=== PATIENT | male | born 1945 | race African-American/Black ===

== ENCOUNTER 2017-05-20 15:00 | Outpatient (RCR) | payer MEDICARE, BC | END 2017-06-04 | disposition home or self-care (01) | LOC: WCC 15:00 | DX: S31.829A Unspecified open wound of left buttock, initial encounter (principal); X58.XXXA Exposure to other specified factors, initial encounter; Y93.9 Activity, unspecified; Y92.9 Unspecified place or not applicable; E11.9 Type 2 diabetes mellitus without complications; I10 Essential (primary) hypertension; Z86.73 Personal history of transient ischemic attack (TIA), and cerebral infarction without residual deficits; R53.1 Weakness | CPT/HCPCS: G0463 ==

== ENCOUNTER 2018-01-14 12:26 | Inpatient (IN) | payer MEDICARE, BC ==
[~2018-01-14] VITALS: Ht 180.3 cm; Wt 75.9 kg
[2018-01-14] VITALS (13 sets, daily range): BP systolic 78–153; BP diastolic 34–59
[2018-01-14] MEDS ORDERED: Vancomycin 1 GM in NS 275 ML IV ONE (12:30)
[2018-01-14] MEDS ORDERED: Cefepime HCl 1 GM in NS 55 ML IV SCH (12:30)
[2018-01-14] MEDS ORDERED: ACETAMINOPHEN80 MG GT (12:35)
[2018-01-14] MEDS ORDERED: LEVEMIR FL100 UNIT/2 SQ (12:35)
[2018-01-14] MEDS ORDERED: ZINC SULFATE220 M1 GT (12:35)
[2018-01-14] MEDS ORDERED: WARFARIN SODIUM2 MG GT (12:35)
[2018-01-14] MEDS ORDERED: CARDIZEM30 M1 GT (12:35)
[2018-01-14] MEDS ORDERED: VITAMIN B COMP1 EAC2 GT (12:35)
[2018-01-14] MEDS ORDERED: DOCUSATE SODIU100 MG GT (12:35)
[2018-01-14] MEDS ORDERED: PROTONIX40 M2 GT (12:35)
[2018-01-14] MEDS ORDERED: LISINOPRIL10 MG GT (12:35)
[2018-01-14] MEDS ORDERED: ADMELOG SO100 UNIT/1 SQ (12:35)
[2018-01-14] MEDS ORDERED: IPRATROPIU0.2 MG/1 M HHN (12:35)
[2018-01-14] MEDS ORDERED: TAMSULOSIN HCL0.4 MG GT (12:35)
[2018-01-14] MEDS ORDERED: ARANESP IJ (12:35)
[2018-01-14] MEDS ORDERED: Acetaminophen 650 MG SUPP RECTAL ONE (12:45)
[2018-01-14 13:47] LABS: ANION GAP 14 mmol/L (5-15); BLOOD UREA NITROGEN 84 mg/dL (7-18); CALCIUM 8.9 MG/DL (8.5-10.1); CARBON DIOXIDE 19 MMOL/L (21-32); CHLORIDE 102 MMOL/L (98-107); CREATININE 3.2 MG/DL (0.55-1.30); POTASSIUM 5.5 MMOL/L (3.5-5.1); SODIUM 135 MMOL/L (136-145)
[2018-01-14 13:48] LABS: HEMATOCRIT 29.4 % (42.0-52.0); HEMOGLOBIN 9.6 G/DL (14.2-18.0); MEAN CORPUSCULAR VOLUME 94 FL (80-99); PLATELET COUNT 249 K/UL (150-450); RED BLOOD COUNT 3.11 M/UL (4.70-6.10); RED CELL DISTRIBUTION WIDTH 16.5 % (11.6-14.8); WHITE BLOOD COUNT 21.5 K/UL (4.8-10.8)
--- NOTE | 2018-01-14 13:54 | Diagnostic Imaging Report ---
Indication: Dyspnea. Fever Comparison: None A single view chest radiograph was obtained. Findings: Small left basal density probably atelectasis or scarring demonstrated. Pneumonia not entirely excludable. Correlate clinically. Follow-up suggested. There is a left jugular permacath in good position. Heart size is normal. No evidence of pulmonary edema. Bones are osteopenic. IMPRESSION: Questionable pneumonia left lung base. Atelectasis or scarring more likely.
[2018-01-14 14:02] LABS: ALANINE AMINOTRANSFERASE 28 U/L (12-78); ALBUMIN 1.4 G/DL (3.4-5.0); ALBUMIN/GLOBULIN RATIO 0.2 (1.0-2.7); ALKALINE PHOSPHATASE 424 U/L (46-116); ASPARTATE AMINO TRANSFERASE 96 U/L (15-37); CREATINE KINASE 209 U/L (26-308)
[2018-01-14 14:45] LABS: INR 1.3 (0.9-1.1)
--- NOTE | 2018-01-14 15:45 | Emergency Room Report ---
History of Present Illness General Chief Complaint: Fever Source: Patient, EMS Present Illness HPI Patient presents from a retirement facility. He has multiple medical problems to include renal failure on dialysis. He is status post CVA with contractures and hemiplegia. He is nonverbal at baseline. He has a PEG tube. He presents from a retirement facility for fever and low blood pressure. There is no other history available. Allergies: Coded Allergies: No Known Allergies (Unverified , 01/14/18) Patient History Past Medical History: see triage record, DM, HTN, [place], CAD, GERD, CVA/TIA, dementia, renal disease, dialysis Social History: Denies: smoking, alcohol use, drug use Reviewed Nursing Documentation: PMH: Agreed; PSxH: Agreed Nursing Documentation-PMH Past Medical History: No History, Except For Hx Hypertension: Yes Hx Dialysis: Yes - Tue, Thurs, and Sat Review of Systems All Other Systems: limited Physical Exam Vital Signs Date Time Temp Pulse Resp B/P (MAP) Pulse Ox O2 Delivery O2 Flow Rate FiO2 01/14/18 12:20 100.1 126 20 75/40 96 Nasal Cannula 2.0 100.0 Sp02 EP Interpretation: reviewed, normal General Appearance: no apparent distress, alert, GCS 15, non-toxic Head: normocephalic, atraumatic Eyes: bilateral eye normal inspection, bilateral eye PERRL ENT: hearing grossly normal, no angioedema Neck: normal inspection Respiratory: chest non-tender, lungs clear, normal breath sounds, no respiratory distress, no retraction, no accessory muscle use Cardiovascular #1: no edema, tachycardia, systolic murmur Gastrointestinal: normal bowel sounds, non tender, soft, non-distended, no guarding, no rebound Rectal: deferred Musculoskeletal: other - contracted. At baseline Neurologic: sensory intact, other - non-verbal. unable to fully assess. contracted. Non-focal. Psychiatric: judgement/insight normal, memory normal, mood/affect normal, no suicidal/homicidal ideation Reflexes: 3+ bicep (R), 3+ bicep (L), 3+ tricep (R), 3+ tricep (L), 3+ knee (R) , 3+ knee (L) Skin: other - dry Medical Decision Making Diagnostic Impression: Primary Impression: Fever Additional Impression: Sepsis ER Course This patient initially presented and septic shock. He was hypotensive, febrile and tachycardic. He did respond aggressive IV fluids. He was given broad- spectrum antibiotics here in the emergency department. I'm unsure of the patient's source. Possibly bacteremia. He does have an indwelling dialysis catheter. The patient's blood pressure did normalize. He was given Tylenol per rectal. He is admitted to the ICU for further evaluation and treatment. This patient is critically ill. This patient required complex medical decision- making, aggressive intervention, extensive laboratory workup and monitoring. Critical care time: 40 minutes. Laboratory Tests Test 01/14/18 12:50 01/14/18 14:00 White Blood Count 21.5 K/UL (4.8-10.8) H Red Blood Count 3.11 M/UL (4.70-6.10) L Hemoglobin 9.6 G/DL (14.2-18.0) L Hematocrit 29.4 % (42.0-52.0) L Mean Corpuscular Volume 94 FL (80-99) Mean Corpuscular Hemoglobin 31.0 PG (27.0-31.0) Mean Corpuscular Hemoglobin Concent 32.8 G/DL (32.0-36.0) Red Cell Distribution Width 16.5 % (11.6-14.8) H Platelet Count 249 K/UL (150-450) Mean Platelet Volume 8.3 FL (6.5-10.1) Neutrophils (%) (Auto) % (45.0-75.0) Lymphocytes (%) (Auto) % (20.0-45.0) Monocytes (%) (Auto) % (1.0-10.0) Eosinophils (%) (Auto) % (0.0-3.0) Basophils (%) (Auto) % (0.0-2.0) Differential Total Cells Counted 100 Neutrophils % (Manual) 87 % (45-75) H Lymphocytes % (Manual) 2 % (20-45) L Monocytes % (Manual) 2 % (1-10) Eosinophils % (Manual) 0 % (0-3) Basophils % (Manual) 1 % (0-2) Band Neutrophils 8 % (0-8) Platelet Estimate Adequate Platelet Morphology Normal Anisocytosis 1+ Sodium Level 135 MMOL/L (136-145) L Potassium Level 5.5 MMOL/L (3.5-5.1) H Chloride Level 102 MMOL/L (98-107) Carbon Dioxide Level 19 MMOL/L (21-32) L Anion Gap 14 mmol/L (5-15) Blood Urea Nitrogen 84 mg/dL (7-18) H Creatinine 3.2 MG/DL (0.55-1.30) H Estimate Glomerular Filtration Rate mL/min (>60) Glucose Level 168 MG/DL (74-106) H Lactic Acid Level 2.00 mmol/L (0.66-2.22) 1.70 mmol/L (0.66-2.22) Calcium Level 8.9 MG/DL (8.5-10.1) Total Bilirubin 1.0 MG/DL (0.2-1.0) Aspartate Amino Transferase (AST) 96 U/L (15-37) H Alanine Aminotransferase (ALT) 28 U/L (12-78) Alkaline Phosphatase 424 U/L (46-116) H Total Creatine Kinase 209 U/L (26-308) Creatine Kinase MB 1.0 NG/ML (0.0-3.6) Creatine Kinase MB Relative Index 0.4 Troponin I 0.036 ng/mL (0.000-0.056) Total Protein 7.7 G/DL (6.4-8.2) Albumin 1.4 G/DL (3.4-5.0) L Globulin 6.3 g/dL Albumin/Globulin Ratio 0.2 (1.0-2.7) L Prothrombin Time 13.5 SEC (9.30-11.50) H Prothrombin Time INR 1.3 (0.9-1.1) H PTT 31 SEC (23-33) EKG Diagnostic Results Rate: tachycardiac Rhythm: other - S.tachycardia ST Segments: no acute changes Rhythm Strip Diag. Results EP Interpretation: yes Rate: 110's Rhythm: no PVC's, no ectopy, other - S.tachycardia Chest X-Ray Diagnostic Results Chest X-Ray Diagnostic Results : Chest X-Ray Ordered: Yes # of Views/Limited/Complete: 1 View Indication: Other - sepsis Interpretation: no consolidation, no effusion, no pneumothorax, no acute cardiopulmonary disease Impression: No acute disease Electronically Signed by: Kamala Last Vital Signs Date Time Temp Pulse Resp B/P (MAP) Pulse Ox O2 Delivery O2 Flow Rate FiO2 4/12/18 14:20 98.6 107 22 108/42 95 Nasal Cannula 2.0 98.6 Disposition: ADMITTED INPATIENT Condition: Critical Referrals: GUSTAVO WING (PCP) SHAHRAM GEE D.O. Jan 14, 2018 15:45
[2018-01-14] MEDS ORDERED: Albuterol/Ipratropium 3ml neb HHN PRN (16:00)
[2018-01-14] MEDS ORDERED: Miralax 17gm pkt ORAL PRN (16:00)
[2018-01-14] MEDS ORDERED: Morphine Sulfate 4mg/ml Inj IVP PRN (16:00)
--- NOTE | 2018-01-14 16:26 | Consultation ---
Consult Note Consult Note asked to eval for dialysis management Patient presents from a senior living facility. He has multiple medical problems to include renal failure on dialysis. He is status post CVA with contractures and hemiplegia. He is nonverbal at baseline. He has a PEG tube. He presents from a senior living facility for fever and low blood pressure. There is no other history available. Past Medical History: see triage record, DM, HTN, [place], CAD, GERD, CVA/TIA, dementia, renal disease, dialysis Past Medical History: No History, Except For Hx Hypertension: Yes Hx Dialysis: Yes - Tue, Thurs, and Sat Assessment/Plan ESRD Septic Shock Left permacath PRG Dementia Anemia HTN Previous Stroke Hydrate- Antibiotics [place] HD as needed per orders GIOVANNI BROUSSARD Jan 14, 2018 16:26
[2018-01-14] MEDS ORDERED: Amikacin Rx to dose MISC PRN (18:15)
--- NOTE | 2018-01-14 18:52 | Pulmonolgy Critical Care Note ---
Critical Care - Asmt/Plan Problems: (1) Septic shock (2) ESRF (end stage renal failure) (3) History of CVA (cerebrovascular accident) (4) HTN (hypertension) (5) Feeding by G-tube (6) Hemiplegia Respiratory: monitor respiratory rate, adjust FIO2 Cardiac: continue pressors, continue to monitor HR/BP Renal: F/U I&O, keep IV fluid Infectious Disease: check cultures Gastrointestinal: hold feedings Endocrine: monitor blood sugar Hematologic: monitor H/H Neurologic: PRN Ativan, PRN Morphine Affect: PRN ativan Prophylaxis: Protonix Disposition: keep in ICU Notes Reviewed: cardio Discussed with: consultants Critical Care - Objective Last 24 Hour Vital Signs Date Time Temp Pulse Resp B/P (MAP) Pulse Ox O2 Delivery O2 Flow Rate FiO2 01/14/18 17:52 98.4 107 20 122/49 98 Nasal Cannula 2.0 01/14/18 17:51 98.6 104 14 122/46 98 Nasal Cannula 2.0 98.6 01/14/18 16:50 98.6 104 14 111/43 98 Nasal Cannula 2.0 98.6 01/14/18 16:00 98.6 104 14 111/59 98 Nasal Cannula 2.0 98.6 01/14/18 15:20 98.6 107 22 122/46 94 Nasal Cannula 2.0 98.6 01/14/18 14:20 98.6 107 22 108/42 95 Nasal Cannula 2.0 98.6 01/14/18 13:41 98.6 01/14/18 13:20 98.6 112 27 104/38 96 Nasal Cannula 2.0 98.6 01/14/18 13:11 100.1 01/14/18 12:30 100.1 120 27 78/34 96 Nasal Cannula 2.0 100.1 01/14/18 12:20 100.1 126 20 75/40 96 Nasal Cannula 2.0 100.0 Status: awake Condition: critical HEENT: atraumatic Lungs: clear Heart: HR/BP stable Abdomen: soft Extremities: no C/C/E Decubiti: location Critical Care - Subjective ROS Limited/Unobtainable: Yes ICU Day: 1 Interval Events: 72 year old male with hx of ESRF, Dementia, on HD, status post CVA with contractures and hemiplegia, nonverbal at baseline with PEG tube, [facility] resident [facility] for fever and low blood pressure. There is no other history available. Pt was diagnosed to have septic shock and admitted to ICU for further work up. Fluids: levophed CXR: clear Labs: Laboratory Tests Test 01/14/18 12:50 01/14/18 14:00 White Blood Count 21.5 K/UL (4.8-10.8) H Red Blood Count 3.11 M/UL (4.70-6.10) L Hemoglobin 9.6 G/DL (14.2-18.0) L Hematocrit 29.4 % (42.0-52.0) L Mean Corpuscular Volume 94 FL (80-99) Mean Corpuscular Hemoglobin 31.0 PG (27.0-31.0) Mean Corpuscular Hemoglobin Concent 32.8 G/DL (32.0-36.0) Red Cell Distribution Width 16.5 % (11.6-14.8) H Platelet Count 249 K/UL (150-450) Mean Platelet Volume 8.3 FL (6.5-10.1) Neutrophils (%) (Auto) % (45.0-75.0) Lymphocytes (%) (Auto) % (20.0-45.0) Monocytes (%) (Auto) % (1.0-10.0) Eosinophils (%) (Auto) % (0.0-3.0) Basophils (%) (Auto) % (0.0-2.0) Differential Total Cells Counted 100 Neutrophils % (Manual) 87 % (45-75) H Lymphocytes % (Manual) 2 % (20-45) L Monocytes % (Manual) 2 % (1-10) Eosinophils % (Manual) 0 % (0-3) Basophils % (Manual) 1 % (0-2) Band Neutrophils 8 % (0-8) Platelet Estimate Adequate Platelet Morphology Normal Anisocytosis 1+ Sodium Level 135 MMOL/L (136-145) L Potassium Level 5.5 MMOL/L (3.5-5.1) H Chloride Level 102 MMOL/L (98-107) Carbon Dioxide Level 19 MMOL/L (21-32) L Anion Gap 14 mmol/L (5-15) Blood Urea Nitrogen 84 mg/dL (7-18) H Creatinine 3.2 MG/DL (0.55-1.30) H Estimat Glomerular Filtration Rate mL/min (>60) Glucose Level 168 MG/DL (74-106) H Lactic Acid Level 2.00 mmol/L (0.66-2.22) 1.70 mmol/L (0.66-2.22) Calcium Level 8.9 MG/DL (8.5-10.1) Total Bilirubin 1.0 MG/DL (0.2-1.0) Aspartate Amino Transf (AST/SGOT) 96 U/L (15-37) H Alanine Aminotransferase (ALT/SGPT) 28 U/L (12-78) Alkaline Phosphatase 424 U/L (46-116) H Total Creatine Kinase 209 U/L (26-308) Creatine Kinase MB 1.0 NG/ML (0.0-3.6) Creatine Kinase MB Relative Index 0.4 Troponin I 0.036 ng/mL (0.000-0.056) Total Protein 7.7 G/DL (6.4-8.2) Albumin 1.4 G/DL (3.4-5.0) L Globulin 6.3 g/dL Albumin/Globulin Ratio 0.2 (1.0-2.7) L Prothrombin Time 13.5 SEC (9.30-11.50) H Prothromb Time International Ratio 1.3 (0.9-1.1) H Activated Partial Thromboplast Time 31 SEC (23-33) Bryson Reilly MD Jan 14, 2018 18:52
[2018-01-14] MEDS ORDERED: Amikacin 600 MG in NS 110 ML IV SCH (21:00)
[2018-01-14] MEDS ORDERED: Tamsulosin 0.4mg cap ORAL SCH (21:00)
[2018-01-14] MEDS: ERTAPENEM IV SCH (21:45)
[2018-01-14] MEDS: NS IV SCH (21:45)
[2018-01-14] MEDS: Heparin 5000 units/ml inj SUBQ SCH (21:49)
[2018-01-14] MEDS ORDERED: Vancomycin 1 GM in D5W 275 ML IV SCH (23:45)
[2018-01-15] VITALS (24 sets, daily range): BP systolic 92–147; BP diastolic 34–52
[2018-01-15 04:25] LABS: HEMATOCRIT 23.6 % (42.0-52.0); HEMOGLOBIN 7.8 G/DL (14.2-18.0); MEAN CORPUSCULAR VOLUME 94 FL (80-99); PLATELET COUNT 243 K/UL (150-450); RED BLOOD COUNT 2.51 M/UL (4.70-6.10); RED CELL DISTRIBUTION WIDTH 16.4 % (11.6-14.8)
[2018-01-15 04:43] LABS: WHITE BLOOD COUNT 25.3 K/UL (4.8-10.8)
[2018-01-15 05:03] LABS: % IRON SATURATION 16 % (15-50); IRON 12 ug/dL (50-175); TOTAL IRON BINDING CAPACITY 74 ug/dL (250-450)
[2018-01-15 05:15] LABS: ALANINE AMINOTRANSFERASE 44 U/L (12-78); ALBUMIN 1.2 G/DL (3.4-5.0); ALBUMIN/GLOBULIN RATIO 0.2 (1.0-2.7); ALKALINE PHOSPHATASE 320 U/L (46-116); ANION GAP 12 mmol/L (5-15); ASPARTATE AMINO TRANSFERASE 51 U/L (15-37); BILIRUBIN,TOTAL 0.6 MG/DL (0.2-1.0); CALCIUM 7.9 MG/DL (8.5-10.1); CARBON DIOXIDE 19 MMOL/L (21-32); CHLORIDE 110 MMOL/L (98-107); CHOLESTEROL 54 MG/DL (< 200); CREATININE 3.4 MG/DL (0.55-1.30); HDL CHOLESTEROL 12 MG/DL (40-60); POTASSIUM 4.1 MMOL/L (3.5-5.1); SODIUM 141 MMOL/L (136-145); TRIGLYCERIDES 79 MG/DL (30-150)
[2018-01-15 05:43] LABS: BLOOD UREA NITROGEN 88 mg/dL (7-18)
[2018-01-15 06:13] LABS: GAMMA GLUTAMYL TRANSPEPTIDASE 233 U/L (5-85)
[2018-01-15 07:32] LABS: FERRITIN > 2000 NG/ML (8-388)
[2018-01-15] MEDS: Heparin 5000 units/ml inj SUBQ SCH ×2 (09:00→21:00)
[2018-01-15] MEDS ORDERED: Pantoprazole Inj IVP SCH (09:00)
--- NOTE | 2018-01-15 09:35 | Diagnostic Imaging Report ---
Indication: Acute renal failure Technique: Grayscale and duplex images of the kidneys, retroperitoneum, and bladder were obtained. Comparison: none Findings:. Per technologist, exam was technically difficult as patient was contracted Right kidney measures 10.1 cm in length. Left kidney measures 9.3 cm in length. Both kidneys demonstrates slightly increased echogenicity. No hydronephrosis. Right kidney demonstrates a 2.6 cm cyst. Normal inferior vena cava. Bladder contains considerable debris layering dependently. Bladder volume 242 mL. Patient unable to void Impression: Mildly increased renal echogenicity bilaterally, suspect on the basis of medical renal disease Negative for hydronephrosis Distended bladder containing debris Right renal cyst incidentally noted .
[2018-01-15] MEDS ORDERED: Vancomycin 1gm/D5W 275ml IVPB ONE ×2 (10:00)
--- NOTE | 2018-01-15 10:33 | Nephrology Progress Note ---
Assessment/Plan Problem List: (1) ESRF (end stage renal failure) (2) Septic shock (3) Anemia in chronic kidney disease, on chronic dialysis Assessment ESRD Septic Shock Left permacath PRG Dementia Anemia HTN Previous Stroke Plan Hydrate- transfuse 2 units Antibiotics [place] if residual HD as needed per orders Subjective ROS Limited/Unobtainable: No Constitutional: Reports: malaise, weakness Objective Objective Last 24 Hour Vital Signs Date Time Temp Pulse Resp B/P (MAP) Pulse Ox O2 Delivery O2 Flow Rate FiO2 01/15/18 10:29 Nasal Cannula 1.0 01/15/18 10:29 100 Nasal Cannula 1.0 01/15/18 09:42 94 18 Nasal Cannula 2.0 01/15/18 08:00 97 01/15/18 08:00 98.2 92 17 110/46 100 Nasal Cannula 2.0 98.2 01/15/18 07:00 90 20 147/46 100 Nasal Cannula 2.0 01/15/18 06:00 104 20 109/49 100 Nasal Cannula 2.0 01/15/18 05:00 96 18 100/35 93 Nasal Cannula 2.0 01/15/18 04:00 98.5 96 20 93/36 94 Nasal Cannula 2.0 98.5 01/15/18 04:00 95 01/15/18 03:00 96 20 98/35 93 Nasal Cannula 2.0 01/15/18 02:00 101 20 111/42 93 Nasal Cannula 2.0 01/15/18 01:00 104 17 92/34 93 Nasal Cannula 2.0 01/15/18 00:00 109 01/15/18 00:00 98.5 117 20 93/35 93 Nasal Cannula 2.0 98.5 01/15/18 00:00 109 01/14/18 23:00 117 20 99/34 93 Nasal Cannula 2.0 01/14/18 22:09 120 20 98/53 93 Nasal Cannula 2.0 01/14/18 21:00 125 20 100/54 93 Nasal Cannula 2.0 01/14/18 20:00 139 20 125/59 94 Nasal Cannula 2.0 01/14/18 20:00 127 01/14/18 19:25 137 01/14/18 19:00 137 20 144/53 93 Nasal Cannula 2.0 01/14/18 18:40 98.6 104 22 153/59 93 Nasal Cannula 2.0 98.6 01/14/18 17:52 98.4 107 20 122/49 98 Nasal Cannula 2.0 01/14/18 17:51 98.6 104 14 122/46 98 Nasal Cannula 2.0 98.6 01/14/18 16:50 98.6 104 14 111/43 98 Nasal Cannula 2.0 98.6 01/14/18 16:00 100/50 01/14/18 16:00 98.6 104 14 111/59 98 Nasal Cannula 2.0 98.6 01/14/18 15:20 98.6 107 22 122/46 94 Nasal Cannula 2.0 98.6 01/14/18 14:20 98.6 107 22 108/42 95 Nasal Cannula 2.0 98.6 01/14/18 13:41 98.6 01/14/18 13:20 98.6 112 27 104/38 96 Nasal Cannula 2.0 98.6 01/14/18 13:11 100.1 01/14/18 12:30 100.1 120 27 78/34 96 Nasal Cannula 2.0 100.1 01/14/18 12:20 100.1 126 20 75/40 96 Nasal Cannula 2.0 100.0 Intake and Output 01/14/18 01/15/18 19:00 07:00 Intake Total 2675 ml 1022.4 ml Output Total 60 ml Balance 2675 ml 962.4 ml Intake Oral 0 ml Free Water 0 ml IV Total 2675 ml 1022.4 ml Output Urine Total 60 ml # Bowel Movements 7 Laboratory Tests 01/14/18 12:50: White Blood Count 21.5H, Red Blood Count 3.11L, Hemoglobin 9.6L, Hematocrit 29.4L, Mean Corpuscular Volume 94, Mean Corpuscular Hemoglobin 31.0, Mean Corpuscular Hemoglobin Concent 32.8, Red Cell Distribution Width 16.5H, Platelet Count 249, Mean Platelet Volume 8.3, Neutrophils (%) (Auto) , Lymphocytes (%) (Auto) , Monocytes (%) (Auto) , Eosinophils (%) (Auto) , Basophils (%) (Auto) , Differential Total Cells Counted 100, Neutrophils % ( Manual) 87H, Lymphocytes % (Manual) 2L, Monocytes % (Manual) 2, Eosinophils % ( Manual) 0, Basophils % (Manual) 1, Band Neutrophils 8, Platelet Estimate Adequate, Platelet Morphology Normal, Anisocytosis 1+, Sodium Level 135L, Potassium Level 5.5H, Chloride Level 102, Carbon Dioxide Level 19L, Anion Gap 14 , Blood Urea Nitrogen 84H, Creatinine 3.2H, Estimat Glomerular Filtration Rate , Glucose Level 168H, Lactic Acid Level 2.00, Calcium Level 8.9, Total Bilirubin 1.0, Aspartate Amino Transf (AST/SGOT) 96H, Alanine Aminotransferase ( ALT/SGPT) 28, Alkaline Phosphatase 424H, Total Creatine Kinase 209, Creatine Kinase MB 1.0, Creatine Kinase MB Relative Index 0.4, Troponin I 0.036, C- Reactive Protein, Quantitative 26.0H, Total Protein 7.7, Albumin 1.4L, Globulin 6.3, Albumin/Globulin Ratio 0.2L 01/14/18 14:00: Lactic Acid Level 1.70, Prothrombin Time 13.5H, Prothromb Time International Ratio 1.3H, Activated Partial Thromboplast Time 31 01/15/18 04:00: White Blood Count 25.3*H, Red Blood Count 2.51L, Hemoglobin 7.8L, Hematocrit 23.6L, Mean Corpuscular Volume 94, Mean Corpuscular Hemoglobin 30.9, Mean Corpuscular Hemoglobin Concent 32.8, Red Cell Distribution Width 16.4H, Platelet Count 243, Mean Platelet Volume 6.9, Neutrophils (%) (Auto) , Lymphocytes (%) (Auto) , Monocytes (%) (Auto) , Eosinophils (%) (Auto) , Basophils (%) (Auto) , Differential Total Cells Counted 100, Neutrophils % ( Manual) 84H, Lymphocytes % (Manual) 2L, Monocytes % (Manual) 5, Eosinophils % ( Manual) 0, Basophils % (Manual) 0, Band Neutrophils 9H, Platelet Estimate Adequate, Platelet Morphology Normal, Anisocytosis 1+, Sodium Level 141, Potassium Level 4.1, Chloride Level 110H, Carbon Dioxide Level 19L, Anion Gap 12 , Blood Urea Nitrogen 88H, Creatinine 3.4H, Estimat Glomerular Filtration Rate , Glucose Level 129H, Lactic Acid Level 0.80, Calcium Level 7.9L, Total Bilirubin 0.6, Aspartate Amino Transf (AST/SGOT) 51H, Alanine Aminotransferase ( ALT/SGPT) 44, Alkaline Phosphatase 320H, Troponin I 0.099H, Total Protein 6.5, Albumin 1.2L, Globulin 5.3, Albumin/Globulin Ratio 0.2L, Hypochromasia 1+, Hemoglobin A1c 7.2H, Uric Acid 4.4, Phosphorus Level 3.0, Magnesium Level 1.5L, Iron Level 12L, Total Iron Binding Capacity 74L, Percent Iron Saturation 16, Unsaturated Iron Binding 62L, Ferritin > 2000H, Gamma Glutamyl Transpeptidase 233H, Pro-B-Type Natriuretic Peptide 4385H, Triglycerides Level 79, Cholesterol Level 54, LDL Cholesterol 23, HDL Cholesterol 12L, Cholesterol/HDL Ratio 4.5H, Vitamin B12 Level 1425H, Folate 66.5H, Thyroid Stimulating Hormone (TSH) 1.997, Random Amikacin Level 22.4, Random Vancomycin Level 10.8 01/15/18 08:35: Arterial Blood pH 7.400, Arterial Blood Partial Pressure CO2 31.0L, Arterial Blood Partial Pressure O2 121.4H, Arterial Blood HCO3 18.9L, Arterial Blood Oxygen Saturation 98.1H, Arterial Blood Base Excess -5.1, Robb Test Positive Height (Feet): 5 Height (Inches): 11.00 Weight (Pounds): 136 General Appearance: no apparent distress, lethargic Cardiovascular: tachycardia Respiratory/Chest: decreased breath sounds Abdomen: soft, other - PEG GIOVANNI BROUSSARD Jan 15, 2018 10:33
--- NOTE | 2018-01-15 10:43 | Diagnostic Imaging Report ---
Indication: Dyspnea Technique: One view of the chest Comparison: 01/14/2018 Findings: There is minimal retrocardiac consolidation again demonstrated. There is slight blunting of both costophrenic sulci. Left jugular tunneled dialysis catheter remains. Heart size is normal. Impression: Stable retrocardiac consolidation Possible small bilateral pleural effusions Other findings as noted
--- NOTE | 2018-01-15 15:03 | Cardiology Report ---
APPROVED REPORT EKG Measurement Heart [id number] Sinus tachycardia Otherwise normal ECG
--- NOTE | 2018-01-15 15:40 | Consultation ---
Consult Note Consult Note [id number] Dario Rubi MD Jan 15, 2018 15:39
--- NOTE | 2018-01-15 16:24 | Cardiac Electrophysiology PN ---
Subjective Subjective Cardiology consult dictated [id number] Objective Last 24 Hour Vital Signs Date Time Temp Pulse Resp B/P (MAP) Pulse Ox O2 Delivery O2 Flow Rate FiO2 01/15/18 15:00 97 19 129/44 98 Nasal Cannula 1.0 01/15/18 14:00 100 20 124/52 99 Nasal Cannula 1.0 01/15/18 13:00 95 18 112/48 97 Nasal Cannula 1.0 01/15/18 12:00 98.6 92 17 120/49 97 Nasal Cannula 1.0 98.6 01/15/18 12:00 93 01/15/18 11:00 94 20 115/46 100 Nasal Cannula 1.0 01/15/18 10:29 Nasal Cannula 1.0 01/15/18 10:29 100 Nasal Cannula 1.0 01/15/18 10:00 95 19 115/52 99 Nasal Cannula 1.0 01/15/18 09:42 94 18 Nasal Cannula 2.0 01/15/18 09:00 92 18 105/48 98 Nasal Cannula 1.0 01/15/18 08:00 97 01/15/18 08:00 98.2 92 17 110/46 100 Nasal Cannula 2.0 98.2 01/15/18 07:00 90 20 147/46 100 Nasal Cannula 2.0 01/15/18 06:00 104 20 109/49 100 Nasal Cannula 2.0 01/15/18 05:00 96 18 100/35 93 Nasal Cannula 2.0 01/15/18 04:00 98.5 96 20 93/36 94 Nasal Cannula 2.0 98.5 01/15/18 04:00 95 01/15/18 03:00 96 20 98/35 93 Nasal Cannula 2.0 01/15/18 02:00 101 20 111/42 93 Nasal Cannula 2.0 01/15/18 01:00 104 17 92/34 93 Nasal Cannula 2.0 01/15/18 00:00 109 01/15/18 00:00 98.5 117 20 93/35 93 Nasal Cannula 2.0 98.5 01/15/18 00:00 109 01/14/18 23:00 117 20 99/34 93 Nasal Cannula 2.0 01/14/18 22:09 120 20 98/53 93 Nasal Cannula 2.0 01/14/18 21:00 125 20 100/54 93 Nasal Cannula 2.0 01/14/18 20:00 139 20 125/59 94 Nasal Cannula 2.0 01/14/18 20:00 127 01/14/18 19:25 137 01/14/18 19:00 137 20 144/53 93 Nasal Cannula 2.0 01/14/18 18:40 98.6 104 22 153/59 93 Nasal Cannula 2.0 98.6 01/14/18 17:52 98.4 107 20 122/49 98 Nasal Cannula 2.0 01/14/18 17:51 98.6 104 14 122/46 98 Nasal Cannula 2.0 98.6 01/14/18 16:50 98.6 104 14 111/43 98 Nasal Cannula 2.0 98.6 Intake and Output 01/14/18 01/15/18 19:00 07:00 Intake Total 2675 ml 1122.4 ml Output Total 60 ml Balance 2675 ml 1062.4 ml Intake Oral 0 ml Free Water 0 ml IV Total 2675 ml 1122.4 ml Output Urine Total 60 ml # Bowel Movements 7 Laboratory Tests Test 01/15/18 04:00 01/15/18 08:35 01/15/18 13:00 White Blood Count 25.3 K/UL (4.8-10.8) *H Red Blood Count 2.51 M/UL (4.70-6.10) L Hemoglobin 7.8 G/DL (14.2-18.0) L Hematocrit 23.6 % (42.0-52.0) L Mean Corpuscular Volume 94 FL (80-99) Mean Corpuscular Hemoglobin 30.9 PG (27.0-31.0) Mean Corpuscular Hemoglobin Concent 32.8 G/DL (32.0-36.0) Red Cell Distribution Width 16.4 % (11.6-14.8) H Platelet Count 243 K/UL (150-450) Mean Platelet Volume 6.9 FL (6.5-10.1) Neutrophils (%) (Auto) % (45.0-75.0) Lymphocytes (%) (Auto) % (20.0-45.0) Monocytes (%) (Auto) % (1.0-10.0) Eosinophils (%) (Auto) % (0.0-3.0) Basophils (%) (Auto) % (0.0-2.0) Differential Total Cells Counted 100 Neutrophils % (Manual) 84 % (45-75) H Lymphocytes % (Manual) 2 % (20-45) L Monocytes % (Manual) 5 % (1-10) Eosinophils % (Manual) 0 % (0-3) Basophils % (Manual) 0 % (0-2) Band Neutrophils 9 % (0-8) H Platelet Estimate Adequate Platelet Morphology Normal Hypochromasia 1+ Anisocytosis 1+ Sodium Level 141 MMOL/L (136-145) Potassium Level 4.1 MMOL/L (3.5-5.1) Chloride Level 110 MMOL/L (98-107) H Carbon Dioxide Level 19 MMOL/L (21-32) L Anion Gap 12 mmol/L (5-15) Blood Urea Nitrogen 88 mg/dL (7-18) H Creatinine 3.4 MG/DL (0.55-1.30) H Estimat Glomerular Filtration Rate mL/min (>60) Glucose Level 129 MG/DL (74-106) H Hemoglobin A1c 7.2 % (4.3-6.0) H Lactic Acid Level 0.80 mmol/L (0.66-2.22) Uric Acid 4.4 MG/DL (2.6-7.2) Calcium Level 7.9 MG/DL (8.5-10.1) L Phosphorus Level 3.0 MG/DL (2.5-4.9) Magnesium Level 1.5 MG/DL (1.8-2.4) L Iron Level 12 ug/dL (50-175) L Total Iron Binding Capacity 74 ug/dL (250-450) L Percent Iron Saturation 16 % (15-50) Unsaturated Iron Binding 62 ug/dL (112-346) L Ferritin > 2000 NG/ML (8-388) H Total Bilirubin 0.6 MG/DL (0.2-1.0) Gamma Glutamyl Transpeptidase 233 U/L (5-85) H Aspartate Amino Transf (AST/SGOT) 51 U/L (15-37) H Alanine Aminotransferase (ALT/SGPT) 44 U/L (12-78) Alkaline Phosphatase 320 U/L (46-116) H Troponin I 0.099 ng/mL (0.000-0.056) Pro-B-Type Natriuretic Peptide 4385 pg/mL (0-125) H Total Protein 6.5 G/DL (6.4-8.2) Albumin 1.2 G/DL (3.4-5.0) L Globulin 5.3 g/dL Albumin/Globulin Ratio 0.2 (1.0-2.7) L Triglycerides Level 79 MG/DL (30-150) Cholesterol Level 54 MG/DL (< 200) LDL Cholesterol 23 mg/dL (<100) HDL Cholesterol 12 MG/DL (40-60) L Cholesterol/HDL Ratio 4.5 (3.3-4.4) H Vitamin B12 Level 1425 PG/ML (193-986) H Folate 66.5 NG/ML (8.6-58.9) H Thyroid Stimulating Hormone (TSH) 1.997 uiU/mL (0.358-3.740) Random Amikacin Level 22.4 MG/L Random Vancomycin Level 10.8 ug/mL Arterial Blood pH 7.400 (7.350-7.450) Arterial Blood Partial Pressure CO2 31.0 mmHg (35.0-45.0) L Arterial Blood Partial Pressure O2 121.4 mmHg (75.0-100.0) H Arterial Blood HCO3 18.9 mmol/L (22.0-26.0) L Arterial Blood Oxygen Saturation 98.1 % (92.0-98.0) H Arterial Blood Base Excess -5.1 Robb Test Positive C-Reactive Protein, Quantitative 31.2 mg/dL (0.00-0.90) H Microbiology Date/Time Source Procedure Growth Status 01/14/18 12:45 Blood Blood Culture - Preliminary Resulted 01/14/18 12:45 Blood Blood Culture - Preliminary Resulted Johnson Burgos MD Jan 15, 2018 16:24
--- NOTE | 2018-01-15 16:28 | History & Physical ---
History and Physical History & Physicial Dictated for Int Med-Dr [facility] no. [id number]. SHELIA BAUMANN Jan 15, 2018 16:28
[2018-01-15] MEDS: NS IV SCH (19:48)
[2018-01-15] MEDS: ERTAPENEM IV SCH (19:48)
[2018-01-16] MEDS ORDERED: Albuterol/Ipratropium 3ml neb HHN PRN
[2018-01-16] MEDS ORDERED: Morphine Sulfate 4mg/ml Inj IVP PRN
--- NOTE | 2018-01-16 02:00 | Consultation ---
DATE OF CONSULTATION: 01/15/2018 INFECTIOUS DISEASE CONSULTATION CONSULTING PHYSICIAN: Dario Rubi M.D. REQUESTING PHYSICIAN: Bryson Reilly M.D. REASON FOR CONSULTATION: Evaluation of the patient for sepsis, bacteremia, and antibiotic management. HISTORY OF PRESENT ILLNESS: The patient is a 72-year-old male with multiple medical problems as listed below, who was brought from [facility] to this medical center for sepsis. The patient has been admitted to the ICU. Now, the patient's blood culture is growing Gram-negative rods. The patient is not able to provide much information. Information is gathered through review of chart and speaking to the staff. PAST MEDICAL HISTORY: 1. Hypertension. 2. End-stage renal disease, on hemodialysis. 3. Status post PEG. 4. Gout. 5. Anemia. 6. Multiple decubitus in the sacral area and lower extremity. MEDICATIONS: Ertapenem, vancomycin, and amikacin. ALLERGIES: No known drug allergies. SOCIAL HISTORY: The patient lives in correction. PHYSICAL EXAMINATION: VITAL SIGNS: Temperature 98 degrees, blood pressure 120/79, pulse 86, and respiratory rate 18. HEENT: Mild pale conjunctivae. No icterus. NECK: No lymphadenopathy. CHEST: Clear. HEART: S1 and S2. ABDOMEN: Soft. PEG tube in place. No sign of infection. EXTREMITIES: The patient has sacral decubitus, not grossly infected. NEUROLOGIC: Lethargic. LABORATORY AND DIAGNOSTIC DATA: White blood cells 25, hemoglobin 7.8, and platelets 243. BUN 88 and creatinine 3.4. AST 51 and alkaline phosphatase 320. Blood cultures growing Gram-negative rods. Chest x-ray retrocardiac consolidation. ASSESSMENT: The patient is a 72-year-old male with: 1. Sepsis. 2. Leukocytosis. 3. Fever. 4. Gram-negative bacteremia. 5. Rule out UTI. 6. Elevated alkaline phosphatase, rule out obstruction. 7. Multiple decubitus, however, not grossly infected. 8. Left lung pneumonia. PLAN: 1. We will continue the patient on ertapenem, amikacin, and vancomycin day #1. 2. Monitor cultures (blood and urine). 3. Ultrasound of the liver. 4. Monitor CBC and BMP. 5. Monitor chest x-ray. 6. Based on the patient's clinical course and labs, we will do further recommendations. Thank you, Dr. Reilly, for allowing me to participate in the care of this patient. I will follow the patient with you during this hospitalization. Dario Rubi M.D. DR: DONALD JOB#: [id number] CC:
--- NOTE | 2018-01-16 02:45 | History and Physical Report ---
DATE OF ADMISSION: 01/14/2018 CHIEF COMPLAINT: The patient is a 72-year-old male, who presents with chief complaint of fever. HISTORY OF PRESENT ILLNESS: The patient is a resident of [facility]. The patient himself is unable to contribute much to the history and physical. History and physical was obtained over the telephone with the patient's , Angelita Rogers. According to staff at [facility], the patient began to have fever yesterday, 01/14/2018. The patient was transported to [facility] emergency room. The patient was found to have elevated white count. The patient is admitted for fever, leukocytosis to rule out sepsis. REVIEW OF SYSTEMS: Unable to assess secondary to the patient's mental status. PAST MEDICAL HISTORY: Significant for: 1. Type 2 diabetes. 2. Hypertension. 3. Coronary artery disease. 4. Cerebrovascular accident. 5. Gastroesophageal reflux disease. 6. End-stage renal disease, on hemodialysis every Thursday, Thursday, and Thursday. PAST SURGICAL HISTORY: Significant for: 1. PEG placement 8 years ago. 2. Port-A-Cath placement in the chest for dialysis. CURRENT MEDICATIONS: 1. Diltiazem 30 mg per G-tube four times daily. 2. Levemir 22 units subcutaneously nightly. 3. Lispro sliding scale. 4. DuoNeb nebulized q.6 h. p.r.n. 5. Lisinopril 10 mg per G-tube daily. 6. Protonix 40 mg per G-tube daily. 7. Flomax 0.4 mg p.o. nightly. 8. Vitamin B complex per G-tube daily. 9. Coumadin 2 mg per G-tube daily. 10. Zinc sulfate 220 mg per G-tube daily. ALLERGIES: No known drug allergies. SOCIAL HISTORY: The patient is . The patient previously smoked, however, he quit "long time ago." The patient denies alcohol use. PHYSICAL EXAMINATION: VITAL SIGNS: Temperature 100.1 degrees Fahrenheit, pulse 126, respirations 20, blood pressure 75/40, and oxygen saturation 96%. GENERAL: The patient is a thin-appearing male with contractures. HEENT: Eyes, pupils are equal and responsive to light and accommodation. Extraocular movements are intact. NECK: Supple without lymphadenopathy. CHEST: Few crackles in the bilateral bases, otherwise clear to auscultation without wheezes or rales. CARDIOVASCULAR: Tachycardic, regular rhythm. S1 and S2. No murmurs, rubs, or gallops. ABDOMEN: Soft, nontender, nondistended. Positive bowel sounds. No evidence of hepatosplenomegaly. Currently, no rebound or guarding noted. EXTREMITIES: Negative for clubbing or cyanosis. There are contractures multiple. NEUROLOGICAL: Unable to assess. LABORATORY AND DIAGNOSTIC DATA: Laboratory studies, WBC 21.5, hemoglobin 9.6, hematocrit 29.4, and platelets 229,000. Sodium 135, potassium 5.5, chloride 102, CO2 19, BUN 84, creatinine 8.2, and glucose 168. Troponin elevated at 0.099. BNP elevated at 4385. A chest x-ray revealed consolidation in the left lower base. ASSESSMENT: This is a 72-year-old male with: 1. Fever. 2. Sepsis. 3. Pneumonia. 4. Leukocytosis. 5. Sacral decubitus ulcer, stage IV. 6. Diabetes type 2. 7. End-stage renal disease. 8. Hypertension. 9. Coronary artery disease. 10. Cerebrovascular disease. TREATMENT: 1. Fever/sepsis/pneumonia. An Infectious Disease consultation has been obtained with Dr. Rubi. A Pulmonary consultation has been obtained with Dr. Reilly. The patient is currently on vancomycin and amikacin. Ertapenem has been added for broaden coverage. We will follow recommendations of Infectious Disease and Pulmonary. 2. Sacral decubitus ulcer. 3. Diabetes type 2. A NovoLog sliding scale has been instituted. 4. End-stage renal disease. The patient is currently on hemodialysis every Thursday, Thursday, and Thursday. The patient's last dialysis was 01/13/2018 . A Nephrology consultation has been obtained with Dr. Keith. 5. Hypotensive. The patient is currently hypotensive. 6. Coronary artery disease/congestive heart failure. A Cardiology consult has been obtained with Dr. Johnson Burgos. An echocardiogram is pending. 7. Cerebrovascular disease. Chuy Payton M.D. DR: Addison JOB#: [id number] CC:
--- NOTE | 2018-01-16 03:45 | Consultation ---
DATE OF CONSULTATION: 01/15/2018 CARDIOLOGY CONSULTATION CONSULTING PHYSICIAN: Johnson Burgos M.D. REFERRING PHYSICIAN: Steve Gonzalez M.D. REASON FOR CONSULTATION: Hypotension and tachycardia. HISTORY OF PRESENT ILLNESS: The patient is a 72-year-old gentleman with a history of hypertension, diabetes, and prior myocardial infarction and the patient has a history of CVA with contractures, there is hemiplegia and he is currently nonverbal with G-tube feeding as well as end-stage renal disease, on hemodialysis. The patient was brought in from [facility] for hypotension and fever and tachycardia. The patient was admitted to intensive care unit and the orders were to start him on Levophed, however, after IV fluids, the blood pressure improved. At the time of my evaluation, the patient is alert, opens his eyes in the intensive care unit, and blood pressure is 110. The patient's blood pressure in the ER was 74/40 with a heart rate of 126. PAST MEDICAL HISTORY: 1. Hypertension. 2. Diabetes. 3. Prior myocardial infarction. 4. CVA. 5. Dementia. 6. End-stage renal disease, on hemodialysis. 7. Dysphagia, status post PEG placement. FAMILY HISTORY: Unavailable. SOCIAL HISTORY: He is a prison resident. Currently, he does not smoke or drink alcohol. REVIEW OF SYSTEMS: Cannot be obtained. PHYSICAL EXAMINATION: VITAL SIGNS: Blood pressure of 129/44, pulse is 100, respirations 18, and he is afebrile. HEAD AND NECK: Shows no JVD. He has a left IJ dialysis catheter. LUNGS: Coarse rhonchi. CARDIOVASCULAR: Tachycardic. S1 and S2 with no gallop. ABDOMEN: Status post G-tube. EXTREMITIES: Contracted. LABORATORY AND DIAGNOSTIC DATA: White count 25.3, hemoglobin 7.8, hematocrit of 23.6, and platelet count 243. Sodium 141, potassium 4.0, BUN of 88, creatinine 3.4, and glucose of 129. Hemoglobin A1c 7.2. His troponin 0.099 and initially was 0.036. ASSESSMENT AND PLAN: 1. Rising troponin from 0.036 to 0.099. The patient is nonverbal. Elevated troponin could be due to the patient's renal failure as the patient is on hemodialysis. We will get an echocardiogram for ejection fraction and wall motion abnormality. 2. Hypotension, likely due to septic shock. The blood pressure improved with IV fluid. Continue on IV antibiotic at this time. 3. End-stage renal disease, on hemodialysis. 4. Dysphagia, status post PEG placement. 5. CVA. 6. Dementia. 7. Contraction of lower extremities. Thank you very much, Dr. Gonzalez, for allowing me to participate in the care of this patient. Please do not hesitate to contact me for any questions regarding my evaluation. The case was discussed with the ICU nurse. Johnson Burgos M.D. DR: CARLITO JOB#: [id number] CC:
[2018-01-16 04:00] VITALS: BP 124/68
[2018-01-16 08:00] VITALS: BP 127/65
[2018-01-16] MEDS ORDERED: Amikacin Rx to dose MISC PRN (09:00)
--- NOTE | 2018-01-16 09:05 | Nephrology Progress Note ---
Assessment/Plan Problem List: (1) ESRF (end stage renal failure) (2) Septic shock (3) Anemia in chronic kidney disease, on chronic dialysis Assessment ESRD Septic Shock Left permacath Dementia Anemia HTN Previous Stroke Plan labs pending Hydrate- transfuse 2 units Antibiotics [place] if residual HD as needed per orders Subjective ROS Limited/Unobtainable: No Constitutional: Reports: malaise Objective Objective Last 24 Hour Vital Signs Date Time Temp Pulse Resp B/P (MAP) Pulse Ox O2 Delivery O2 Flow Rate FiO2 01/16/18 08:00 97.3 96 17 127/65 99 Room Air 97.3 01/16/18 07:40 97 Room Air 21 01/16/18 07:40 Room Air 21 01/16/18 07:39 97 20 Room Air 21 01/16/18 04:00 98.0 100 19 124/68 100 Room Air 98.0 01/16/18 04:00 97 01/16/18 00:00 97 01/15/18 22:00 98.7 91 18 125/39 100 Room Air 98.7 01/15/18 21:00 95 18 102/45 100 Room Air 01/15/18 20:00 97 01/15/18 20:00 94 18 138/45 100 Room Air 01/15/18 19:00 92 19 129/38 100 Room Air 01/15/18 18:48 95 21 Room Air 01/15/18 18:48 100 Room Air 01/15/18 18:48 Room Air 01/15/18 18:30 97.9 97 18 132/44 100 Room Air 97.9 01/15/18 18:00 97 19 132/44 100 Room Air 01/15/18 17:00 99 15 129/44 100 Nasal Cannula 1.0 01/15/18 16:00 94 01/15/18 16:00 128/41 01/15/18 16:00 98.6 97 17 126/41 99 Nasal Cannula 1.0 98.6 01/15/18 15:00 97 19 129/44 98 Nasal Cannula 1.0 01/15/18 14:00 100 20 124/52 99 Nasal Cannula 1.0 01/15/18 13:00 95 18 112/48 97 Nasal Cannula 1.0 01/15/18 12:00 98.6 92 17 120/49 97 Nasal Cannula 1.0 98.6 01/15/18 12:00 93 01/15/18 11:00 94 20 115/46 100 Nasal Cannula 1.0 01/15/18 10:29 Nasal Cannula 1.0 01/15/18 10:29 100 Nasal Cannula 1.0 01/15/18 10:00 95 19 115/52 99 Nasal Cannula 1.0 01/15/18 09:42 94 18 Nasal Cannula 2.0 Intake and Output 01/15/18 01/16/18 19:00 07:00 Intake Total 1204 ml 440 ml Output Total 0 ml 0 ml Balance 1204 ml 440 ml Intake Oral 0 ml Free Water 30 ml IV Total 1094 ml 110 ml Tube Feeding 60 ml 30 ml Blood Product 300 ml Other 20 ml Output Urine Total 0 ml 0 ml # Voids 1 3 # Bowel Movements 2 Laboratory Tests 01/15/18 13:00: C-Reactive Protein, Quantitative 31.2H Height (Feet): 5 Height (Inches): 11.00 Weight (Pounds): 151 General Appearance: no apparent distress Respiratory/Chest: decreased breath sounds Abdomen: soft GIOVANNI BROUSSARD Jan 16, 2018 09:05
[2018-01-16] MEDS: Pantoprazole Inj IVP SCH (09:17)
[2018-01-16] MEDS: Heparin 5000 units/ml inj SUBQ SCH ×2 (09:20→20:46)
--- NOTE | 2018-01-16 09:33 | Diagnostic Imaging Report ---
Indication: Abnormal LFTs Technique: US ABD Complete Comparison: None available. Correlation made to concurrent renal ultrasound. Findings: Limited exam given patient inability to cooperate with positioning/patient contracture as well as overlying bowel gas. Within these limitations: Pancreas is obscured by overlying bowel gas and not well evaluated. Liver is normal in size. Hepatic contour appears smooth. Gallbladder is unremarkable in appearance. There is no appreciable cholelithiasis or gallbladder sludge. No gallbladder wall thickening or pericholecystic fluid. No biliary ductal dilatation. Common bile duct measures 2 mm. No focal hepatic mass lesion is appreciated sonographically. A simple appearing cyst in the right kidney measures up to 2.9 cm. The kidneys demonstrate slightly increased parenchymal echogenicity. There is no evidence of hydronephrosis bilaterally. Spleen is grossly unremarkable in appearance and size. Abdominal aorta is poorly evaluated due to overlying bowel gas. There is no appreciable ascites. Impression: Limited exam given patient contracture/body habitus and overlying bowel gas. Pancreas and portions of the abdominal aorta are obscured and not visualized. Liver grossly unremarkable. No definite evidence of cholelithiasis. Sonographic Olmos's reported as negative. No appreciable biliary ductal dilatation. Mildly increased renal echogenicity bilaterally. Correlate clinically to assess for medical renal disease. Right renal cyst.
[2018-01-16 10:12] LABS: HEMATOCRIT 31.9 % (42.0-52.0); HEMOGLOBIN 10.9 G/DL (14.2-18.0); MEAN CORPUSCULAR VOLUME 93 FL (80-99); PLATELET COUNT 217 K/UL (150-450); RED BLOOD COUNT 3.43 M/UL (4.70-6.10); WHITE BLOOD COUNT 18.9 K/UL (4.8-10.8)
[2018-01-16 10:21] LABS: ANION GAP 14 mmol/L (5-15); BLOOD UREA NITROGEN 96 mg/dL (7-18); CALCIUM 8.3 MG/DL (8.5-10.1); CARBON DIOXIDE 17 MMOL/L (21-32); CHLORIDE 111 MMOL/L (98-107); CREATININE 3.6 MG/DL (0.55-1.30); POTASSIUM 3.7 MMOL/L (3.5-5.1); SODIUM 142 MMOL/L (136-145)
[2018-01-16 10:26] LABS: ALANINE AMINOTRANSFERASE 35 U/L (12-78); ALBUMIN 1.3 G/DL (3.4-5.0); ALBUMIN/GLOBULIN RATIO 0.2 (1.0-2.7); ALKALINE PHOSPHATASE 329 U/L (46-116); ASPARTATE AMINO TRANSFERASE 30 U/L (15-37); BILIRUBIN,TOTAL 0.5 MG/DL (0.2-1.0)
--- NOTE | 2018-01-16 11:02 | Diagnostic Imaging Report ---
Indication: Dyspnea Technique: XRAY Chest 1v Comparison: 01/15/2018 Findings: Limited exam. Low lung volumes. Patient's chin obscures the right apex. Dialysis catheter unchanged in position. Heart size and mediastinal contours appear stable. Question development of mild pulmonary vascular congestion. Retrocardiac atelectasis/consolidation. No appreciable pneumothorax. Osseous structures grossly stable. Impression: Markedly limited exam given the lung volumes and patient positioning as above. Question mild pulmonary vascular congestion, possibly exaggerated due to low lung volumes. Unchanged retrocardiac opacity and possible trace bilateral pleural effusions.
[2018-01-16 11:55] VITALS: BP 135/65
--- NOTE | 2018-01-16 12:35 | Pulmonology Progress Note ---
Assessment/Plan Problems: (1) Septic shock (2) Pneumonia (3) ESRF (end stage renal failure) (4) Anemia in chronic kidney disease, on chronic dialysis (5) Feeding by G-tube (6) Hemiplegia (7) HTN (hypertension) (8) History of CVA (cerebrovascular accident) Assessment/Plan continue abx check cultures HD by nephrology tolerating feeding dvt prophylaxis symptomatic treatment Subjective ROS Limited/Unobtainable: Yes Interval Events: late note for 01/15 Allergies: Coded Allergies: No Known Allergies (Unverified , 01/14/18) All Systems: reviewed and negative except above Objective Last 24 Hour Vital Signs Date Time Temp Pulse Resp B/P (MAP) Pulse Ox O2 Delivery O2 Flow Rate FiO2 01/16/18 11:55 97.3 99 17 135/65 100 Room Air 97.3 01/16/18 08:00 97.3 96 17 127/65 99 Room Air 97.3 01/16/18 08:00 91 01/16/18 07:40 97 Room Air 21 01/16/18 07:40 Room Air 21 01/16/18 07:39 97 20 Room Air 21 01/16/18 04:00 98.0 100 19 124/68 100 Room Air 98.0 01/16/18 04:00 97 01/16/18 00:00 97 01/15/18 22:00 98.7 91 18 125/39 100 Room Air 98.7 01/15/18 21:00 95 18 102/45 100 Room Air 01/15/18 20:00 97 01/15/18 20:00 94 18 138/45 100 Room Air 01/15/18 19:00 92 19 129/38 100 Room Air 01/15/18 18:48 95 21 Room Air 01/15/18 18:48 100 Room Air 01/15/18 18:48 Room Air 01/15/18 18:30 97.9 97 18 132/44 100 Room Air 97.9 01/15/18 18:00 97 19 132/44 100 Room Air 01/15/18 17:00 99 15 129/44 100 Nasal Cannula 1.0 01/15/18 16:00 94 01/15/18 16:00 128/41 01/15/18 16:00 98.6 97 17 126/41 99 Nasal Cannula 1.0 98.6 01/15/18 15:00 97 19 129/44 98 Nasal Cannula 1.0 01/15/18 14:00 100 20 124/52 99 Nasal Cannula 1.0 01/15/18 13:00 95 18 112/48 97 Nasal Cannula 1.0 Intake and Output 01/15/18 01/16/18 19:00 07:00 Intake Total 1204 ml 490 ml Output Total 0 ml 0 ml Balance 1204 ml 490 ml Intake Oral 0 ml Free Water 30 ml 30 ml IV Total 1094 ml 110 ml Tube Feeding 60 ml 50 ml Blood Product 300 ml Other 20 ml Output Urine Total 0 ml 0 ml # Voids 1 4 # Bowel Movements 2 Objective General Appearance: cachectic Lines, tubes and drains: peripheral, HD access HEENT: normocephalic, atraumatic Neck: non-tender, supple Lungs: coarse rhonchi Breasts: no masses Cardiovascular/Chest: normal rate Abdomen: normal bowel sounds, non tender Extremities: moderate edema Skin Exam: other Microbiology Date/Time Source Procedure Growth Status 01/14/18 12:45 Blood Blood Culture - Preliminary Gram Negative Renard Resulted 01/14/18 12:45 Blood Blood Culture - Preliminary Gram Negative Renard Resulted 01/14/18 13:35 Nasal Nares MRSA Culture - Final NO METHICILLIN RESISTANT STAPH AUREUS... Complete 01/14/18 13:35 Rectum VRE Culture - Final Enterococcus Faecium - Vre Complete Laboratory Tests 01/15/18 13:00: C-Reactive Protein, Quantitative 31.2H 01/16/18 04:00: Arterial Blood pH 7.370, Arterial Blood Partial Pressure CO2 29.0L, Arterial Blood Partial Pressure O2 93.2, Arterial Blood HCO3 16.4L, Arterial Blood Oxygen Saturation 97.1, Arterial Blood Base Excess -7.7, Robb Test Positive 01/16/18 09:55: White Blood Count 18.9H, Red Blood Count 3.43L, Hemoglobin 10.9#L, Hematocrit 31.9#L, Mean Corpuscular Volume 93, Mean Corpuscular Hemoglobin 31.8H, Mean Corpuscular Hemoglobin Concent 34.3, Red Cell Distribution Width 16.0H, Platelet Count 217, Mean Platelet Volume 6.3L, Neutrophils (%) (Auto) , Lymphocytes (%) (Auto) , Monocytes (%) (Auto) , Eosinophils (%) (Auto) , Basophils (%) (Auto) , Differential Total Cells Counted 100, Neutrophils % ( Manual) 89H, Lymphocytes % (Manual) 4L, Monocytes % (Manual) 7, Eosinophils % ( Manual) 0, Basophils % (Manual) 0, Band Neutrophils 0, Platelet Estimate Adequate, Platelet Morphology Normal, Anisocytosis 1+, Sodium Level 142, Potassium Level 3.7, Chloride Level 111H, Carbon Dioxide Level 17L, Anion Gap 14 , Blood Urea Nitrogen 96H, Creatinine 3.6H, Estimat Glomerular Filtration Rate , Glucose Level 132H, Uric Acid 7.6H, Calcium Level 8.3L, Phosphorus Level 5.0H , Magnesium Level 2.1, Total Bilirubin 0.5, Aspartate Amino Transf (AST/SGOT) 30 , Alanine Aminotransferase (ALT/SGPT) 35, Alkaline Phosphatase 329H, Troponin I 0.011, Pro-B-Type Natriuretic Peptide 4320H, Total Protein 7.0, Albumin 1.3L, Globulin 5.7, Albumin/Globulin Ratio 0.2L Current Medications Medications (Trade) Dose Ordered Sig/Elaina Route PRN Reason Start Time Stop Time Status Last Admin Dose Admin Acetaminophen (Tylenol) 650 mg Q4H PRN ORAL fever (temp>100.5F) 01/16/18 00:00 02/13/18 15:59 Albuterol/ Ipratropium (Albuterol/ Ipratropium) 3 ml Q4H PRN HHN Shortness of Breath 01/16/18 00:00 01/19/18 15:59 Amikacin Protocol (Amikacin pharmacy to dose) 1 ea DAILY PRN MISC RX TO DOSE AMIKACIN 01/16/18 09:00 02/13/18 18:14 Ertapenem 0.5 gm/ Sodium Chloride 110 ml @ 220 mls/hr Q24H IV 01/16/18 20:00 01/20/18 19:59 Heparin Sodium (Porcine) (Heparin 5000 units/ml) 5,000 units EVERY 12 HOURS SUBQ 01/16/18 09:00 02/13/18 20:59 01/16/18 09:20 Morphine Sulfate (Morphine Sulfate) 2 mg Q4H PRN IVP Severe Pain (Pain Scale 7-10) 01/16/18 00:00 01/21/18 15:59 Ondansetron HCl (Zofran) 4 mg Q6H PRN IVP Nausea & Vomiting 01/15/18 22:00 02/13/18 15:59 Pantoprazole (Protonix) 40 mg DAILY IVP 01/16/18 09:00 02/14/18 08:59 01/16/18 09:17 Polyethylene Glycol (Miralax) 17 gm DAILYPRN PRN ORAL Constipation 01/16/18 16:00 02/13/18 15:59 Sodium Chloride 1,000 ml @ 50 mls/hr Q20H IVLG 01/15/18 22:00 02/13/18 11:29 01/16/18 09:20 Vancomycin HCl (Vanco rx to dose) 1 ea DAILY PRN MISC RX TO DOSE VANCOMYCIN 01/16/18 09:00 02/13/18 18:14 Bryson Reilly MD Jan 16, 2018 12:35
--- NOTE | 2018-01-16 12:56 | Cardiac Electrophysiology PN ---
Assessment/Plan Assessment/Plan 1. Rising troponin from 0.036 to 0.099 to 0.011 The patient is nonverbal. Elevated troponin could be due to the patient's renal failure as the patient is on hemodialysis. Echocardiogram EF 65% 2. Hypotension, likely due to septic shock. The blood pressure improved with IV fluid. Continue on IV antibiotic. WBC is improving 3. End-stage renal disease, on hemodialysis. 4. Dysphagia, status post PEG placement. 5. CVA. 6. Dementia. 7. Contraction of lower extremities. KURTIS RN Subjective Subjective Comfortable. Opens eyes but nonverbal. Objective Last 24 Hour Vital Signs Date Time Temp Pulse Resp B/P (MAP) Pulse Ox O2 Delivery O2 Flow Rate FiO2 01/16/18 11:55 97.3 99 17 135/65 100 Room Air 97.3 01/16/18 08:00 97.3 96 17 127/65 99 Room Air 97.3 01/16/18 08:00 91 01/16/18 07:40 97 Room Air 21 01/16/18 07:40 Room Air 21 01/16/18 07:39 97 20 Room Air 21 01/16/18 04:00 98.0 100 19 124/68 100 Room Air 98.0 01/16/18 04:00 97 01/16/18 00:00 97 01/15/18 22:00 98.7 91 18 125/39 100 Room Air 98.7 01/15/18 21:00 95 18 102/45 100 Room Air 01/15/18 20:00 97 01/15/18 20:00 94 18 138/45 100 Room Air 01/15/18 19:00 92 19 129/38 100 Room Air 01/15/18 18:48 95 21 Room Air 01/15/18 18:48 100 Room Air 01/15/18 18:48 Room Air 01/15/18 18:30 97.9 97 18 132/44 100 Room Air 97.9 01/15/18 18:00 97 19 132/44 100 Room Air 01/15/18 17:00 99 15 129/44 100 Nasal Cannula 1.0 01/15/18 16:00 94 01/15/18 16:00 128/41 01/15/18 16:00 98.6 97 17 126/41 99 Nasal Cannula 1.0 98.6 01/15/18 15:00 97 19 129/44 98 Nasal Cannula 1.0 01/15/18 14:00 100 20 124/52 99 Nasal Cannula 1.0 01/15/18 13:00 95 18 112/48 97 Nasal Cannula 1.0 Intake and Output 01/15/18 01/16/18 19:00 07:00 Intake Total 1204 ml 490 ml Output Total 0 ml 0 ml Balance 1204 ml 490 ml Intake Oral 0 ml Free Water 30 ml 30 ml IV Total 1094 ml 110 ml Tube Feeding 60 ml 50 ml Blood Product 300 ml Other 20 ml Output Urine Total 0 ml 0 ml # Voids 1 4 # Bowel Movements 2 Laboratory Tests Test 01/15/18 13:00 01/16/18 04:00 01/16/18 09:55 C-Reactive Protein, Quantitative 31.2 mg/dL (0.00-0.90) H Arterial Blood pH 7.370 (7.350-7.450) Arterial Blood Partial Pressure CO2 29.0 mmHg (35.0-45.0) L Arterial Blood Partial Pressure O2 93.2 mmHg (75.0-100.0) Arterial Blood HCO3 16.4 mmol/L (22.0-26.0) L Arterial Blood Oxygen Saturation 97.1 % (92.0-98.0) Arterial Blood Base Excess -7.7 Robb Test Positive White Blood Count 18.9 K/UL (4.8-10.8) H Red Blood Count 3.43 M/UL (4.70-6.10) L Hemoglobin 10.9 G/DL (14.2-18.0) #L Hematocrit 31.9 % (42.0-52.0) #L Mean Corpuscular Volume 93 FL (80-99) Mean Corpuscular Hemoglobin 31.8 PG (27.0-31.0) H Mean Corpuscular Hemoglobin Concent 34.3 G/DL (32.0-36.0) Red Cell Distribution Width 16.0 % (11.6-14.8) H Platelet Count 217 K/UL (150-450) Mean Platelet Volume 6.3 FL (6.5-10.1) L Neutrophils (%) (Auto) % (45.0-75.0) Lymphocytes (%) (Auto) % (20.0-45.0) Monocytes (%) (Auto) % (1.0-10.0) Eosinophils (%) (Auto) % (0.0-3.0) Basophils (%) (Auto) % (0.0-2.0) Differential Total Cells Counted 100 Neutrophils % (Manual) 89 % (45-75) H Lymphocytes % (Manual) 4 % (20-45) L Monocytes % (Manual) 7 % (1-10) Eosinophils % (Manual) 0 % (0-3) Basophils % (Manual) 0 % (0-2) Band Neutrophils 0 % (0-8) Platelet Estimate Adequate Platelet Morphology Normal Anisocytosis 1+ Sodium Level 142 MMOL/L (136-145) Potassium Level 3.7 MMOL/L (3.5-5.1) Chloride Level 111 MMOL/L (98-107) H Carbon Dioxide Level 17 MMOL/L (21-32) L Anion Gap 14 mmol/L (5-15) Blood Urea Nitrogen 96 mg/dL (7-18) H Creatinine 3.6 MG/DL (0.55-1.30) H Estimat Glomerular Filtration Rate mL/min (>60) Glucose Level 132 MG/DL (74-106) H Uric Acid 7.6 MG/DL (2.6-7.2) H Calcium Level 8.3 MG/DL (8.5-10.1) L Phosphorus Level 5.0 MG/DL (2.5-4.9) H Magnesium Level 2.1 MG/DL (1.8-2.4) Total Bilirubin 0.5 MG/DL (0.2-1.0) Aspartate Amino Transf (AST/SGOT) 30 U/L (15-37) Alanine Aminotransferase (ALT/SGPT) 35 U/L (12-78) Alkaline Phosphatase 329 U/L (46-116) H Troponin I 0.011 ng/mL (0.000-0.056) Pro-B-Type Natriuretic Peptide 4320 pg/mL (0-125) H Total Protein 7.0 G/DL (6.4-8.2) Albumin 1.3 G/DL (3.4-5.0) L Globulin 5.7 g/dL Albumin/Globulin Ratio 0.2 (1.0-2.7) L Microbiology Date/Time Source Procedure Growth Status 01/14/18 12:45 Blood Blood Culture - Preliminary Gram Negative Renard Resulted 01/14/18 12:45 Blood Blood Culture - Preliminary Gram Negative Renard Resulted 01/14/18 13:35 Nasal Nares MRSA Culture - Final NO METHICILLIN RESISTANT STAPH AUREUS... Complete 01/14/18 13:35 Rectum VRE Culture - Final Enterococcus Faecium - Vre Complete Objective HEAD AND NECK: Shows no JVD. He has a left IJ dialysis catheter. LUNGS: Coarse rhonchi. CARDIOVASCULAR: Tachycardic. S1 and S2 with no gallop. ABDOMEN: Status post G-tube. EXTREMITIES: Contracted. Johnson Burgos MD Jan 16, 2018 12:56
--- NOTE | 2018-01-16 13:39 | Internal Med Progress Note ---
Subjective Date of Service: Jan 16, 2018 Physician Name TataShelia Attending Physician Steve Gonzalez MD Current Medications Medications (Trade) Dose Ordered Sig/Elaina Route PRN Reason Start Time Stop Time Status Last Admin Dose Admin Acetaminophen (Tylenol) 650 mg Q4H PRN ORAL fever (temp>100.5F) 01/16/18 00:00 02/13/18 15:59 Albuterol/ Ipratropium (Albuterol/ Ipratropium) 3 ml Q4H PRN HHN Shortness of Breath 01/16/18 00:00 01/19/18 15:59 Amikacin Protocol (Amikacin pharmacy to dose) 1 ea DAILY PRN MISC RX TO DOSE AMIKACIN 01/16/18 09:00 02/13/18 18:14 Ertapenem 0.5 gm/ Sodium Chloride 110 ml @ 220 mls/hr Q24H IV 01/16/18 20:00 01/20/18 19:59 Heparin Sodium (Porcine) (Heparin 5000 units/ml) 5,000 units EVERY 12 HOURS SUBQ 01/16/18 09:00 02/13/18 20:59 01/16/18 09:20 Morphine Sulfate (Morphine Sulfate) 2 mg Q4H PRN IVP Severe Pain (Pain Scale 7-10) 01/16/18 00:00 01/21/18 15:59 Ondansetron HCl (Zofran) 4 mg Q6H PRN IVP Nausea & Vomiting 01/15/18 22:00 02/13/18 15:59 Pantoprazole (Protonix) 40 mg DAILY IVP 01/16/18 09:00 02/14/18 08:59 01/16/18 09:17 Polyethylene Glycol (Miralax) 17 gm DAILYPRN PRN ORAL Constipation 01/16/18 16:00 02/13/18 15:59 Sodium Chloride 1,000 ml @ 50 mls/hr Q20H IVLG 01/15/18 22:00 02/13/18 11:29 01/16/18 09:20 Vancomycin HCl (Vanco rx to dose) 1 ea DAILY PRN MISC RX TO DOSE VANCOMYCIN 01/16/18 09:00 02/13/18 18:14 Allergies: Coded Allergies: No Known Allergies (Unverified , 01/14/18) ROS Limited/Unobtainable: Yes Subjective 72 YO M admitted with fever. Now sepsis. Cover for Int Fritz-Dr Gonzalez. Objective Last Vital Signs Date Time Temp Pulse Resp B/P (MAP) Pulse Ox O2 Delivery O2 Flow Rate FiO2 01/16/18 12:00 95 01/16/18 11:55 97.3 17 135/65 100 Room Air 97.3 01/16/18 07:40 21 01/15/18 17:00 1.0 General Appearance: WD/WN, no apparent distress, alert EENT: PERRL/EOMI, normal ENT inspection Neck: non-tender, normal alignment, supple Cardiovascular: normal peripheral pulses, normal rate, regular rhythm, no gallop/murmur, no JVD Respiratory/Chest: chest wall non-tender, lungs clear, normal breath sounds, no respiratory distress, no accessory muscle use Abdomen: normal bowel sounds, non tender, soft, no organomegaly, no mass Skin: normal pigmentation, warm/dry Laboratory Tests Test 01/16/18 04:00 01/16/18 09:55 Arterial Blood pH 7.370 (7.350-7.450) Arterial Blood Partial Pressure CO2 29.0 mmHg (35.0-45.0) L Arterial Blood Partial Pressure O2 93.2 mmHg (75.0-100.0) Arterial Blood HCO3 16.4 mmol/L (22.0-26.0) L Arterial Blood Oxygen Saturation 97.1 % (92.0-98.0) Arterial Blood Base Excess -7.7 Robb Test Positive White Blood Count 18.9 K/UL (4.8-10.8) H Red Blood Count 3.43 M/UL (4.70-6.10) L Hemoglobin 10.9 G/DL (14.2-18.0) #L Hematocrit 31.9 % (42.0-52.0) #L Mean Corpuscular Volume 93 FL (80-99) Mean Corpuscular Hemoglobin 31.8 PG (27.0-31.0) H Mean Corpuscular Hemoglobin Concent 34.3 G/DL (32.0-36.0) Red Cell Distribution Width 16.0 % (11.6-14.8) H Platelet Count 217 K/UL (150-450) Mean Platelet Volume 6.3 FL (6.5-10.1) L Neutrophils (%) (Auto) % (45.0-75.0) Lymphocytes (%) (Auto) % (20.0-45.0) Monocytes (%) (Auto) % (1.0-10.0) Eosinophils (%) (Auto) % (0.0-3.0) Basophils (%) (Auto) % (0.0-2.0) Differential Total Cells Counted 100 Neutrophils % (Manual) 89 % (45-75) H Lymphocytes % (Manual) 4 % (20-45) L Monocytes % (Manual) 7 % (1-10) Eosinophils % (Manual) 0 % (0-3) Basophils % (Manual) 0 % (0-2) Band Neutrophils 0 % (0-8) Platelet Estimate Adequate Platelet Morphology Normal Anisocytosis 1+ Sodium Level 142 MMOL/L (136-145) Potassium Level 3.7 MMOL/L (3.5-5.1) Chloride Level 111 MMOL/L (98-107) H Carbon Dioxide Level 17 MMOL/L (21-32) L Anion Gap 14 mmol/L (5-15) Blood Urea Nitrogen 96 mg/dL (7-18) H Creatinine 3.6 MG/DL (0.55-1.30) H Estimat Glomerular Filtration Rate mL/min (>60) Glucose Level 132 MG/DL (74-106) H Uric Acid 7.6 MG/DL (2.6-7.2) H Calcium Level 8.3 MG/DL (8.5-10.1) L Phosphorus Level 5.0 MG/DL (2.5-4.9) H Magnesium Level 2.1 MG/DL (1.8-2.4) Total Bilirubin 0.5 MG/DL (0.2-1.0) Aspartate Amino Transf (AST/SGOT) 30 U/L (15-37) Alanine Aminotransferase (ALT/SGPT) 35 U/L (12-78) Alkaline Phosphatase 329 U/L (46-116) H Troponin I 0.011 ng/mL (0.000-0.056) Pro-B-Type Natriuretic Peptide 4320 pg/mL (0-125) H Total Protein 7.0 G/DL (6.4-8.2) Albumin 1.3 G/DL (3.4-5.0) L Globulin 5.7 g/dL Albumin/Globulin Ratio 0.2 (1.0-2.7) L Microbiology Date/Time Source Procedure Growth Status 01/14/18 12:45 Blood Blood Culture - Preliminary Gram Negative Renard Resulted 01/14/18 12:45 Blood Blood Culture - Preliminary Gram Negative Renard Resulted 01/14/18 13:35 Nasal Nares MRSA Culture - Final NO METHICILLIN RESISTANT STAPH AUREUS... Complete 01/14/18 13:35 Rectum VRE Culture - Final Enterococcus Faecium - Vre Complete Intake and Output 01/15/18 01/16/18 19:00 07:00 Intake Total 1204 ml 490 ml Output Total 0 ml 0 ml Balance 1204 ml 490 ml Intake Oral 0 ml Free Water 30 ml 30 ml IV Total 1094 ml 110 ml Tube Feeding 60 ml 50 ml Blood Product 300 ml Other 20 ml Output Urine Total 0 ml 0 ml # Voids 1 4 # Bowel Movements 2 Assessment/Plan Problem List: (1) Diabetes mellitus (2) ESRD (end stage renal disease) on dialysis (3) CAD (coronary artery disease) (4) CHF (congestive heart failure) (5) Sepsis Assessment & Plan: Gram neg rods. See ID note. Continue ertapenem per ID (6) Fever (7) Pneumonia (8) Feeding by G-tube (9) HTN (hypertension) (10) History of CVA (cerebrovascular accident) (11) Anemia in chronic kidney disease, on chronic dialysis Assessment & Plan: S/P transfusion 2 units PRBC Status: not improved SHELIA BAUMANN Jan 16, 2018 13:39
[2018-01-16 16:00] VITALS: BP 139/67
[2018-01-16] MEDS ORDERED: Miralax 17gm pkt ORAL PRN (16:00)
--- NOTE | 2018-01-16 18:43 | Wound Care Consultation ---
Wound Assessment Wound Assessment #1: Wound Number: 1 Wound Present on Admission: Yes New Wound: No Status Change of Wound: No Wound Location Body Site Modif: mid Wound Location Body Site: sacral Wound Type: pressure ulcer Amira Test: Does not Amira Pressure Ulcer Stage: IV Wound Thickness: Full Thickness Wound Length: 4.5 Wound Width: 6.0 Wound Depth: 1.5 Percent of Wound [place]/Red: 100 Wound Drainage Description: Serosanguineous Wound Drainage Amount: Moderate Wound Drainage Odor: None/Absent Tissue Surrounding Wound: Macerated Wound Undermining at 12:00: 2.0 Wound Undermining at 6:00: 2.5 Wound Undermining at 9:00: 3.0 Wound General Appearance: Reddened, Draining, Muscle Visible Wound Assessment #2: Wound Number: 2 Wound Present on Admission: Yes New Wound: No Status Change of Wound: No Wound Location Body Site Modif: left Wound Location Body Site: trochanter Wound Type: pressure ulcer Amira Test: Does not Amira Pressure Ulcer Stage: Unstageable Wound Thickness: Full Thickness Wound Length: 4.5 Wound Width: 4.5 Wound Depth: utd Percent of Wound [place]/Red: 80 Percent of Wound Bed Yellow/Wh: 20 Wound Drainage Description: Serosanguineous Wound Drainage Amount: Moderate Wound Drainage Odor: None/Absent Tissue Surrounding Wound: Macerated Wound General Appearance: Reddened - yellow, Draining, Necrotic Wound Assessment #3: Wound Number: 3 Wound Present on Admission: Yes New Wound: No Status Change of Wound: No Wound Location Body Site Modif: right, mid, lateral Wound Location Body Site: foot Wound Type: pressure ulcer Amira Test: Does not Amira Pressure Ulcer Stage: Deep Tissue Injury Wound Thickness: Full Thickness Wound Length: 2.0 Wound Width: 2.5 Wound Depth: utd Percent of Wound Black/Brown: 100 Wound Drainage Amount: None Wound Drainage Odor: None/Absent Tissue Surrounding Wound: Intact Wound Assessment #4: Wound Number: 4 Wound Present on Admission: Yes New Wound: No Status Change of Wound: No Wound Location Body Site Modif: left, lateral Wound Location Body Site: metatarsal head Wound Type: pressure ulcer Amira Test: Does not Amira Pressure Ulcer Stage: Deep Tissue Injury Wound Thickness: Full Thickness Wound Length: 2.0 Wound Width: 2.0 Wound Depth: utd Percent of Wound Black/Brown: 100 Wound Drainage Amount: None Wound Drainage Odor: None/Absent Tissue Surrounding Wound: Intact Wound Comment #1 Sacral stage IV pressure ulcer #2 Left hip unstageable pressure ulcer #3 Right lateral mid foot DTI pressure ulcer #4 Right lateral metatarsal head DTI pressure ulcer Recommendation -Local wound care per protocol -Keep clean and dry -Turn and reposition -Optimize nutrition -Low air loss mattress -Offload both heels -Heel protector on both heels -Assess and f/u accordingly for any changes ISABELLE ESQUIVEL RN Jan 16, 2018 18:43
[2018-01-16 20:00] VITALS: BP 129/69
[2018-01-16] MEDS ORDERED: ERTAPENEM IV SCH (20:00)
[2018-01-16] MEDS ORDERED: NS IV SCH (20:00)
[2018-01-16] MEDS ORDERED: NS 275ml ONE (22:50)
[2018-01-16] MEDS ORDERED: 1/2 NS 1000ml IV ONE (22:50)
[2018-01-16] MEDS ORDERED: Tubing Blood Filter IV ONE (22:50)
[2018-01-16] MEDS ORDERED: Tubing IV Secondary IV ONE (22:50)
[2018-01-17] VITALS: BP 133/75
[2018-01-17 04:00] VITALS: BP 141/77
[2018-01-17 07:52] LABS: HEMATOCRIT 35.2 % (42.0-52.0); HEMOGLOBIN 11.5 G/DL (14.2-18.0); MEAN CORPUSCULAR VOLUME 95 FL (80-99); PLATELET COUNT 241 K/UL (150-450); RED BLOOD COUNT 3.69 M/UL (4.70-6.10); RED CELL DISTRIBUTION WIDTH 15.9 % (11.6-14.8); WHITE BLOOD COUNT 16.8 K/UL (4.8-10.8)
[2018-01-17 08:00] VITALS: BP 145/78
[2018-01-17 08:06] LABS: ALANINE AMINOTRANSFERASE 37 U/L (12-78); ALBUMIN 1.5 G/DL (3.4-5.0); ALBUMIN/GLOBULIN RATIO 0.2 (1.0-2.7); ALKALINE PHOSPHATASE 436 U/L (46-116); ANION GAP 13 mmol/L (5-15); ASPARTATE AMINO TRANSFERASE 31 U/L (15-37); BILIRUBIN,TOTAL 0.6 MG/DL (0.2-1.0); BLOOD UREA NITROGEN 96 mg/dL (7-18); CALCIUM 8.8 MG/DL (8.5-10.1); CARBON DIOXIDE 20 MMOL/L (21-32); CHLORIDE 114 MMOL/L (98-107); CREATININE 3.4 MG/DL (0.55-1.30); POTASSIUM 3.7 MMOL/L (3.5-5.1); SODIUM 147 MMOL/L (136-145)
[2018-01-17] MEDS: Pantoprazole Inj IVP SCH (08:09)
[2018-01-17] MEDS: Heparin 5000 units/ml inj SUBQ SCH ×2 (08:10→21:02)
[2018-01-17 08:41] LABS: PHOSPHORUS 4.6 MG/DL (2.5-4.9)
[2018-01-17] MEDS ORDERED: Vancomycin 750mg/NS 250ml IVPB ONE (09:30)
--- NOTE | 2018-01-17 10:48 | Pulmonology Progress Note ---
Assessment/Plan Problems: (1) Bacteremia (2) Septic shock (3) Pneumonia (4) ESRF (end stage renal failure) (5) Anemia in chronic kidney disease, on chronic dialysis (6) Feeding by G-tube (7) Hemiplegia (8) HTN (hypertension) (9) History of CVA (cerebrovascular accident) Assessment/Plan Blood culture positive for + EColi, pansensitive dc vancomycina amikacin wbc decreasing ID note appreciated HD by nephrology tolerating feeding dvt prophylaxis symptomatic treatment med/surg Subjective ROS Limited/Unobtainable: No Constitutional: Reports: no symptoms HEENT: Repors: no symptoms Respiratory: Reports: no symptoms Allergies: Coded Allergies: No Known Allergies (Unverified , 01/14/18) Objective Last 24 Hour Vital Signs Date Time Temp Pulse Resp B/P (MAP) Pulse Ox O2 Delivery O2 Flow Rate FiO2 01/17/18 08:08 98 Room Air 21 01/17/18 08:08 Room Air 21 01/17/18 08:08 98 18 Room Air 21 01/17/18 08:00 92 01/17/18 08:00 97.9 96 17 145/78 100 Room Air 97.9 01/17/18 04:00 88 01/17/18 04:00 97.3 97 16 141/77 99 Room Air 97.3 01/17/18 00:00 97.2 97 16 133/75 99 Room Air 97.2 01/17/18 00:00 92 01/16/18 20:42 Room Air 21 01/16/18 20:41 101 16 Room Air 21 01/16/18 20:41 97 Room Air 21 01/16/18 20:00 Room Air 01/16/18 20:00 97.9 101 16 129/69 97 97.9 01/16/18 20:00 95 01/16/18 16:00 97 01/16/18 16:00 97.3 101 17 139/67 100 Room Air 97.3 01/16/18 12:00 95 01/16/18 11:55 97.3 99 17 135/65 100 Room Air 97.3 Intake and Output 01/16/18 01/17/18 19:00 07:00 Intake Total 983 ml 1154 ml Balance 983 ml 1154 ml Free Water 180 ml 110 ml IV Total 483 ml 684 ml Tube Feeding 320 ml 360 ml # Voids 3 2 # Bowel Movements 2 2 Objective General Appearance: cachectic Lines, tubes and drains: peripheral, HD access HEENT: normocephalic, atraumatic Neck: non-tender, supple Lungs: coarse rhonchi Breasts: no masses Cardiovascular/Chest: normal rate Abdomen: normal bowel sounds, non tender Extremities: moderate edema Skin Exam: other Microbiology Date/Time Source Procedure Growth Status 01/14/18 12:45 Blood Blood Culture - Final Escherichia Coli Complete 01/14/18 12:45 Blood Blood Culture - Final Escherichia Coli Complete 01/14/18 20:00 Wound Gram Stain - Final Resulted 01/14/18 20:00 Wound Culture - Preliminary Gram Negative Bacillus 1 Gram Negative Bacillus 2 Staphylococcus Species Resulted 01/14/18 13:35 Nasal Nares MRSA Culture - Final NO METHICILLIN RESISTANT STAPH AUREUS... Complete 01/14/18 13:35 Rectum VRE Culture - Final Enterococcus Faecium - Vre Complete Laboratory Tests 01/17/18 07:00: White Blood Count 16.8H, Red Blood Count 3.69L, Hemoglobin 11.5L, Hematocrit 35.2L, Mean Corpuscular Volume 95, Mean Corpuscular Hemoglobin 31.2H, Mean Corpuscular Hemoglobin Concent 32.7, Red Cell Distribution Width 15.9H, Platelet Count 241, Mean Platelet Volume 7.4, Neutrophils (%) (Auto) , Lymphocytes (%) (Auto) , Monocytes (%) (Auto) , Eosinophils (%) (Auto) , Basophils (%) (Auto) , Differential Total Cells Counted 100, Neutrophils % ( Manual) 86H, Lymphocytes % (Manual) 9L, Monocytes % (Manual) 4, Eosinophils % ( Manual) 1, Basophils % (Manual) 0, Band Neutrophils 0, Platelet Estimate Adequate, Platelet Morphology Normal, Anisocytosis 1+, Sodium Level 147H, Potassium Level 3.7, Chloride Level 114H, Carbon Dioxide Level 20L, Anion Gap 13 , Blood Urea Nitrogen 96H, Creatinine 3.4H, Estimat Glomerular Filtration Rate , Glucose Level 151H, Calcium Level 8.8, Phosphorus Level 4.6, Magnesium Level 2.1, Total Bilirubin 0.6, Aspartate Amino Transf (AST/SGOT) 31, Alanine Aminotransferase (ALT/SGPT) 37, Alkaline Phosphatase 436H, Total Protein 7.5, Albumin 1.5L, Globulin 6.0, Albumin/Globulin Ratio 0.2L, Random Vancomycin Level 17.7 Current Medications Medications (Trade) Dose Ordered Sig/Elaina Route PRN Reason Start Time Stop Time Status Last Admin Dose Admin Acetaminophen (Tylenol) 650 mg Q4H PRN ORAL fever (temp>100.5F) 01/16/18 00:00 02/13/18 15:59 Albuterol/ Ipratropium (Albuterol/ Ipratropium) 3 ml Q4H PRN HHN Shortness of Breath 01/16/18 00:00 01/19/18 15:59 Chlorhexidine Gluconate (Samantha-Hex 2%) 1 applic DAILY@2000 TOPIC 01/17/18 20:00 02/16/18 19:59 Ertapenem 0.5 gm/ Sodium Chloride 110 ml @ 220 mls/hr Q24H IV 01/16/18 20:00 01/20/18 19:59 01/16/18 20:45 Heparin Sodium (Porcine) (Heparin 5000 units/ml) 5,000 units EVERY 12 HOURS SUBQ 01/16/18 09:00 02/13/18 20:59 01/17/18 08:10 Morphine Sulfate (Morphine Sulfate) 2 mg Q4H PRN IVP Severe Pain (Pain Scale 7-10) 01/16/18 00:00 01/21/18 15:59 Ondansetron HCl (Zofran) 4 mg Q6H PRN IVP Nausea & Vomiting 01/15/18 22:00 02/13/18 15:59 Pantoprazole (Protonix) 40 mg DAILY IVP 01/16/18 09:00 02/14/18 08:59 01/17/18 08:09 Polyethylene Glycol (Miralax) 17 gm DAILYPRN PRN ORAL Constipation 01/16/18 16:00 02/13/18 15:59 Vancomycin/Sodium Chloride 250 ml @ 166.667 mls/hr ONCE ONCE IVPB 01/17/18 09:30 01/17/18 10:59 01/17/18 09:13 Bryson Reilly MD Jan 17, 2018 10:48
[2018-01-17 12:00] VITALS: BP 148/70
--- NOTE | 2018-01-17 14:57 | Internal Med Progress Note ---
Subjective Date of Service: Jan 17, 2018 Physician Name Shelia Baumann Attending Physician Steve Gonzalez MD Current Medications Medications (Trade) Dose Ordered Sig/Elaina Route PRN Reason Start Time Stop Time Status Last Admin Dose Admin Acetaminophen (Tylenol) 650 mg Q4H PRN ORAL fever (temp>100.5F) 01/16/18 00:00 02/13/18 15:59 Albuterol/ Ipratropium (Albuterol/ Ipratropium) 3 ml Q4H PRN HHN Shortness of Breath 01/16/18 00:00 01/19/18 15:59 Chlorhexidine Gluconate (Samantha-Hex 2%) 1 applic DAILY@2000 TOPIC 01/17/18 20:00 02/16/18 19:59 Ertapenem 0.5 gm/ Sodium Chloride 110 ml @ 220 mls/hr Q24H IV 01/16/18 20:00 01/20/18 19:59 01/16/18 20:45 Heparin Sodium (Porcine) (Heparin 5000 units/ml) 5,000 units EVERY 12 HOURS SUBQ 01/16/18 09:00 02/13/18 20:59 01/17/18 08:10 Morphine Sulfate (Morphine Sulfate) 2 mg Q4H PRN IVP Severe Pain (Pain Scale 7-10) 01/16/18 00:00 01/21/18 15:59 Ondansetron HCl (Zofran) 4 mg Q6H PRN IVP Nausea & Vomiting 01/15/18 22:00 02/13/18 15:59 Pantoprazole (Protonix) 40 mg DAILY IVP 01/16/18 09:00 02/14/18 08:59 01/17/18 08:09 Polyethylene Glycol (Miralax) 17 gm DAILYPRN PRN ORAL Constipation 01/16/18 16:00 02/13/18 15:59 Allergies: Coded Allergies: No Known Allergies (Unverified , 01/14/18) ROS Limited/Unobtainable: No Constitutional: Reports: no symptoms HEENT: Reports: no symptoms Cardiovascular: Reports: no symptoms Respiratory: Reports: no symptoms Gastrointestinal/Abdominal: Reports: no symptoms Genitourinary: Reports: no symptoms Neurologic/Psychiatric: Reports: no symptoms Subjective 72 YO M admitted with fever. Now sepsis. Cover for Int Med-Dr Gonzalez. Objective Last Vital Signs Date Time Temp Pulse Resp B/P (MAP) Pulse Ox O2 Delivery O2 Flow Rate FiO2 01/17/18 12:00 95 01/17/18 12:00 97.9 17 148/70 100 Room Air 97.9 01/17/18 08:08 21 01/15/18 17:00 1.0 Laboratory Tests Test 01/17/18 07:00 White Blood Count 16.8 K/UL (4.8-10.8) H Red Blood Count 3.69 M/UL (4.70-6.10) L Hemoglobin 11.5 G/DL (14.2-18.0) L Hematocrit 35.2 % (42.0-52.0) L Mean Corpuscular Volume 95 FL (80-99) Mean Corpuscular Hemoglobin 31.2 PG (27.0-31.0) H Mean Corpuscular Hemoglobin Concent 32.7 G/DL (32.0-36.0) Red Cell Distribution Width 15.9 % (11.6-14.8) H Platelet Count 241 K/UL (150-450) Mean Platelet Volume 7.4 FL (6.5-10.1) Neutrophils (%) (Auto) % (45.0-75.0) Lymphocytes (%) (Auto) % (20.0-45.0) Monocytes (%) (Auto) % (1.0-10.0) Eosinophils (%) (Auto) % (0.0-3.0) Basophils (%) (Auto) % (0.0-2.0) Differential Total Cells Counted 100 Neutrophils % (Manual) 86 % (45-75) H Lymphocytes % (Manual) 9 % (20-45) L Monocytes % (Manual) 4 % (1-10) Eosinophils % (Manual) 1 % (0-3) Basophils % (Manual) 0 % (0-2) Band Neutrophils 0 % (0-8) Platelet Estimate Adequate Platelet Morphology Normal Anisocytosis 1+ Sodium Level 147 MMOL/L (136-145) H Potassium Level 3.7 MMOL/L (3.5-5.1) Chloride Level 114 MMOL/L (98-107) H Carbon Dioxide Level 20 MMOL/L (21-32) L Anion Gap 13 mmol/L (5-15) Blood Urea Nitrogen 96 mg/dL (7-18) H Creatinine 3.4 MG/DL (0.55-1.30) H Estimat Glomerular Filtration Rate mL/min (>60) Glucose Level 151 MG/DL (74-106) H Calcium Level 8.8 MG/DL (8.5-10.1) Phosphorus Level 4.6 MG/DL (2.5-4.9) Magnesium Level 2.1 MG/DL (1.8-2.4) Total Bilirubin 0.6 MG/DL (0.2-1.0) Aspartate Amino Transf (AST/SGOT) 31 U/L (15-37) Alanine Aminotransferase (ALT/SGPT) 37 U/L (12-78) Alkaline Phosphatase 436 U/L (46-116) H Total Protein 7.5 G/DL (6.4-8.2) Albumin 1.5 G/DL (3.4-5.0) L Globulin 6.0 g/dL Albumin/Globulin Ratio 0.2 (1.0-2.7) L Random Vancomycin Level 17.7 ug/mL Microbiology Date/Time Source Procedure Growth Status 01/14/18 20:00 Wound Gram Stain - Final Resulted 01/14/18 20:00 Wound Culture - Preliminary Gram Negative Bacillus 1 Gram Negative Bacillus 2 Staphylococcus Species Resulted Intake and Output 01/16/18 01/17/18 19:00 07:00 Intake Total 983 ml 1154 ml Balance 983 ml 1154 ml Free Water 180 ml 110 ml IV Total 483 ml 684 ml Tube Feeding 320 ml 360 ml # Voids 3 2 # Bowel Movements 2 2 Objective General Appearance: WD/WN, no apparent distress, alert EENT: PERRL/EOMI, normal ENT inspection Neck: non-tender, normal alignment, supple Cardiovascular: normal peripheral pulses, normal rate, regular rhythm, no gallop/murmur, no JVD Respiratory/Chest: chest wall non-tender, lungs clear, normal breath sounds, no respiratory distress, no accessory muscle use Abdomen: normal bowel sounds, non tender, soft, no organomegaly, no mass Skin: normal pigmentation, warm/dry Assessment/Plan Problem List: (1) Diabetes mellitus (2) ESRD (end stage renal disease) on dialysis (3) CAD (coronary artery disease) (4) CHF (congestive heart failure) (5) Sepsis Assessment & Plan: E.Coli. See ID note. Continue ertapenem per ID (6) Fever (7) Pneumonia (8) Feeding by G-tube (9) HTN (hypertension) (10) History of CVA (cerebrovascular accident) (11) Anemia in chronic kidney disease, on chronic dialysis Assessment & Plan: S/P transfusion 2 units PRBC Status: not improved SHELIA BAUMANN Jan 17, 2018 14:57
--- NOTE | 2018-01-17 15:39 | Nephrology Progress Note ---
Assessment/Plan Problem List: (1) ESRF (end stage renal failure) (2) Septic shock (3) Anemia in chronic kidney disease, on chronic dialysis Assessment ESRD by history Septic Shock resolved low BP Left permacath Dementia Anemia HTN Previous Stroke Plan Cr lower transfuse 2 units Antibiotics Cardura for BP and BPH HD as needed, not needed yet per orders Subjective ROS Limited/Unobtainable: No Constitutional: Reports: malaise Objective Objective Last 24 Hour Vital Signs Date Time Temp Pulse Resp B/P (MAP) Pulse Ox O2 Delivery O2 Flow Rate FiO2 01/17/18 12:00 95 01/17/18 12:00 97.9 96 17 148/70 100 Room Air 97.9 01/17/18 08:08 98 Room Air 21 01/17/18 08:08 Room Air 21 01/17/18 08:08 98 18 Room Air 21 01/17/18 08:00 92 01/17/18 08:00 97.9 96 17 145/78 100 Room Air 97.9 01/17/18 04:00 88 01/17/18 04:00 97.3 97 16 141/77 99 Room Air 97.3 01/17/18 00:00 97.2 97 16 133/75 99 Room Air 97.2 01/17/18 00:00 92 01/16/18 20:42 Room Air 21 01/16/18 20:41 101 16 Room Air 21 01/16/18 20:41 97 Room Air 21 01/16/18 20:00 Room Air 01/16/18 20:00 97.9 101 16 129/69 97 97.9 01/16/18 20:00 95 01/16/18 16:00 97 01/16/18 16:00 97.3 101 17 139/67 100 Room Air 97.3 Intake and Output 01/16/18 01/17/18 19:00 07:00 Intake Total 983 ml 1154 ml Balance 983 ml 1154 ml Free Water 180 ml 110 ml IV Total 483 ml 684 ml Tube Feeding 320 ml 360 ml # Voids 3 2 # Bowel Movements 2 2 Laboratory Tests 01/17/18 07:00: White Blood Count 16.8H, Red Blood Count 3.69L, Hemoglobin 11.5L, Hematocrit 35.2L, Mean Corpuscular Volume 95, Mean Corpuscular Hemoglobin 31.2H, Mean Corpuscular Hemoglobin Concent 32.7, Red Cell Distribution Width 15.9H, Platelet Count 241, Mean Platelet Volume 7.4, Neutrophils (%) (Auto) , Lymphocytes (%) (Auto) , Monocytes (%) (Auto) , Eosinophils (%) (Auto) , Basophils (%) (Auto) , Differential Total Cells Counted 100, Neutrophils % ( Manual) 86H, Lymphocytes % (Manual) 9L, Monocytes % (Manual) 4, Eosinophils % ( Manual) 1, Basophils % (Manual) 0, Band Neutrophils 0, Platelet Estimate Adequate, Platelet Morphology Normal, Anisocytosis 1+, Sodium Level 147H, Potassium Level 3.7, Chloride Level 114H, Carbon Dioxide Level 20L, Anion Gap 13 , Blood Urea Nitrogen 96H, Creatinine 3.4H, Estimat Glomerular Filtration Rate , Glucose Level 151H, Calcium Level 8.8, Phosphorus Level 4.6, Magnesium Level 2.1, Total Bilirubin 0.6, Aspartate Amino Transf (AST/SGOT) 31, Alanine Aminotransferase (ALT/SGPT) 37, Alkaline Phosphatase 436H, Total Protein 7.5, Albumin 1.5L, Globulin 6.0, Albumin/Globulin Ratio 0.2L, Random Vancomycin Level 17.7 Height (Feet): 5 Height (Inches): 11.00 Weight (Pounds): 175 General Appearance: no apparent distress Cardiovascular: tachycardia Respiratory/Chest: decreased breath sounds Abdomen: soft, other - PEG GIOVANNI BROUSSARD Jan 17, 2018 15:39
[2018-01-17 16:00] VITALS: BP 156/88
[2018-01-17] MEDS ORDERED: Morphine Sulfate 4mg/ml Inj IVP PRN (16:00)
[2018-01-17] MEDS ORDERED: Miralax 17gm pkt ORAL PRN (16:00)
[2018-01-17] MEDS ORDERED: Albuterol/Ipratropium 3ml neb HHN PRN (16:00)
[2018-01-17] MEDS: Doxazosin 1mg Tab GT SCH ×2 (16:24→19:30)
[2018-01-17 20:00] VITALS: BP 142/80
[2018-01-17] MEDS ORDERED: Dyna-Hex 2% Top Sol 2oz TOPIC SCH (20:00)
[2018-01-17] MEDS ORDERED: NS IV SCH (20:00)
[2018-01-17] MEDS ORDERED: ERTAPENEM IV SCH (20:00)
[2018-01-17] MEDS: Dyna-Hex 2% Top Sol 2oz TOPIC SCH (21:01)
--- NOTE | 2018-01-17 21:43 | Infectious Diseases Prog Note ---
Assessment/Plan Assessment/Plan ASSESSMENT: The patient is a 72-year-old male with: Sepsis. Leukocytosis. Fever., SP bacteremia. EColi Rule out UTI. Elevated alkaline phosphatase, Ultrasound of the liver : no billary disease obstruction. Multiple decubitus, however, not grossly infected. Left lung pneumonia. Hypertension. End-stage renal disease, on hemodialysis. Status post PEG. Gout. Anemia. Multiple decubitus in the sacral area and lower extremists PLAN: continue the patient on ertapenem, amikacin, and vancomycin day # 3 Monitor cultures (blood and urine). Monitor CBC and BMP. Monitor chest x-ray. Subjective Constitutional: Denies: no symptoms, fever, chills, fatigue, anorexia, drenching sweats, other Allergies: Coded Allergies: No Known Allergies (Unverified , 01/14/18) Objective Vital Signs Last 24 Hour Vital Signs Date Time Temp Pulse Resp B/P (MAP) Pulse Ox O2 Delivery O2 Flow Rate FiO2 01/17/18 20:09 98 Room Air 21 01/17/18 20:09 97 18 Room Air 21 01/17/18 20:09 Room Air 21 01/17/18 20:00 97.7 97 21 142/80 100 Room Air 97.7 01/17/18 16:00 98.1 95 18 156/88 99 Room Air 98.1 01/17/18 12:00 95 01/17/18 12:00 97.9 96 17 148/70 100 Room Air 97.9 01/17/18 08:08 98 Room Air 21 01/17/18 08:08 Room Air 21 01/17/18 08:08 98 18 Room Air 21 01/17/18 08:00 92 01/17/18 08:00 97.9 96 17 145/78 100 Room Air 97.9 01/17/18 04:00 88 01/17/18 04:00 97.3 97 16 141/77 99 Room Air 97.3 01/17/18 00:00 97.2 97 16 133/75 99 Room Air 97.2 01/17/18 00:00 92 Height (Feet): 5 Height (Inches): 11.00 Weight (Pounds): 175 HEENT: anicteric Respiratory/Chest: no respiratory distress Cardiovascular: regular rhythm Abdomen: non distended Laboratory Tests Test 01/17/18 07:00 White Blood Count 16.8 K/UL (4.8-10.8) H Red Blood Count 3.69 M/UL (4.70-6.10) L Hemoglobin 11.5 G/DL (14.2-18.0) L Hematocrit 35.2 % (42.0-52.0) L Mean Corpuscular Volume 95 FL (80-99) Mean Corpuscular Hemoglobin 31.2 PG (27.0-31.0) H Mean Corpuscular Hemoglobin Concent 32.7 G/DL (32.0-36.0) Red Cell Distribution Width 15.9 % (11.6-14.8) H Platelet Count 241 K/UL (150-450) Mean Platelet Volume 7.4 FL (6.5-10.1) Neutrophils (%) (Auto) % (45.0-75.0) Lymphocytes (%) (Auto) % (20.0-45.0) Monocytes (%) (Auto) % (1.0-10.0) Eosinophils (%) (Auto) % (0.0-3.0) Basophils (%) (Auto) % (0.0-2.0) Differential Total Cells Counted 100 Neutrophils % (Manual) 86 % (45-75) H Lymphocytes % (Manual) 9 % (20-45) L Monocytes % (Manual) 4 % (1-10) Eosinophils % (Manual) 1 % (0-3) Basophils % (Manual) 0 % (0-2) Band Neutrophils 0 % (0-8) Platelet Estimate Adequate Platelet Morphology Normal Anisocytosis 1+ Sodium Level 147 MMOL/L (136-145) H Potassium Level 3.7 MMOL/L (3.5-5.1) Chloride Level 114 MMOL/L (98-107) H Carbon Dioxide Level 20 MMOL/L (21-32) L Anion Gap 13 mmol/L (5-15) Blood Urea Nitrogen 96 mg/dL (7-18) H Creatinine 3.4 MG/DL (0.55-1.30) H Estimat Glomerular Filtration Rate mL/min (>60) Glucose Level 151 MG/DL (74-106) H Calcium Level 8.8 MG/DL (8.5-10.1) Phosphorus Level 4.6 MG/DL (2.5-4.9) Magnesium Level 2.1 MG/DL (1.8-2.4) Total Bilirubin 0.6 MG/DL (0.2-1.0) Aspartate Amino Transf (AST/SGOT) 31 U/L (15-37) Alanine Aminotransferase (ALT/SGPT) 37 U/L (12-78) Alkaline Phosphatase 436 U/L (46-116) H Total Protein 7.5 G/DL (6.4-8.2) Albumin 1.5 G/DL (3.4-5.0) L Globulin 6.0 g/dL Albumin/Globulin Ratio 0.2 (1.0-2.7) L Random Vancomycin Level 17.7 ug/mL Current Medications Medications (Trade) Dose Ordered Sig/Elaina Route PRN Reason Start Time Stop Time Status Last Admin Dose Admin Acetaminophen (Tylenol) 650 mg Q4H PRN ORAL fever (temp>100.5F) 01/17/18 16:00 02/13/18 15:59 Albuterol/ Ipratropium (Albuterol/ Ipratropium) 3 ml Q4H PRN HHN Shortness of Breath 01/17/18 16:00 01/19/18 15:59 Chlorhexidine Gluconate (Samantha-Hex 2%) 1 applic DAILY@2000 TOPIC 01/17/18 20:00 02/16/18 19:59 01/17/18 21:01 Doxazosin Mesylate (Cardura) 1 mg BID GT 01/17/18 15:45 02/16/18 15:44 01/17/18 19:30 Ertapenem 0.5 gm/ Sodium Chloride 110 ml @ 220 mls/hr Q24H IV 01/17/18 20:00 01/20/18 19:59 01/17/18 21:01 Famotidine (Pepcid) 20 mg BID GT 01/17/18 18:00 02/16/18 17:59 01/17/18 17:27 Heparin Sodium (Porcine) (Heparin 5000 units/ml) 5,000 units EVERY 12 HOURS SUBQ 01/17/18 21:00 02/13/18 20:59 01/17/18 21:02 Morphine Sulfate (Morphine Sulfate) 2 mg Q4H PRN IVP Severe Pain (Pain Scale 7-10) 01/17/18 16:00 01/21/18 15:59 Ondansetron HCl (Zofran) 4 mg Q6H PRN IVP Nausea & Vomiting 01/17/18 16:00 02/13/18 15:59 Polyethylene Glycol (Miralax) 17 gm DAILYPRN PRN ORAL Constipation 01/17/18 16:00 02/13/18 15:59 Dario Rubi MD Jan 17, 2018 21:43
[2018-01-17] MEDS ORDERED: Sterile Water Irrig 1000ml IRRIG ONE (22:30)
[2018-01-18] VITALS: BP 130/73
[2018-01-18 04:00] VITALS: BP 145/85
[2018-01-18 06:36] LABS: BASOPHILS % (AUTO) 0.3 % (0.0-2.0); EOSINOPHILS % (AUTO) 1.5 % (0.0-3.0); HEMATOCRIT 32.5 % (42.0-52.0); HEMOGLOBIN 10.8 G/DL (14.2-18.0); LYMPHOCYTES % (AUTO) 7.9 % (20.0-45.0); MEAN CORPUSCULAR VOLUME 94 FL (80-99); MONOCYTES % (AUTO) 6.4 % (1.0-10.0); PLATELET COUNT 236 K/UL (150-450); RED BLOOD COUNT 3.45 M/UL (4.70-6.10); RED CELL DISTRIBUTION WIDTH 15.7 % (11.6-14.8)
[2018-01-18 06:52] LABS: ANION GAP 13 mmol/L (5-15); BLOOD UREA NITROGEN 93 mg/dL (7-18); CALCIUM 8.5 MG/DL (8.5-10.1); CARBON DIOXIDE 19 MMOL/L (21-32); CHLORIDE 115 MMOL/L (98-107); CREATININE 3.3 MG/DL (0.55-1.30); POTASSIUM 3.4 MMOL/L (3.5-5.1); SODIUM 147 MMOL/L (136-145)
[2018-01-18 07:03] LABS: ALANINE AMINOTRANSFERASE 37 U/L (12-78); ALBUMIN 1.5 G/DL (3.4-5.0); ALKALINE PHOSPHATASE 396 U/L (46-116); ASPARTATE AMINO TRANSFERASE 39 U/L (15-37); BILIRUBIN,DIRECT 0.2 MG/DL (0.0-0.3); BILIRUBIN,TOTAL 0.5 MG/DL (0.2-1.0); PHOSPHORUS 4.4 MG/DL (2.5-4.9)
[2018-01-18 08:00] VITALS: BP 152/86
[2018-01-18] MEDS: Doxazosin 1mg Tab GT SCH ×3 (08:49→21:41)
[2018-01-18] MEDS ORDERED: Pantoprazole Inj IVP SCH (09:00)
[2018-01-18] MEDS: Heparin 5000 units/ml inj SUBQ SCH ×2 (09:51→21:42)
--- NOTE | 2018-01-18 10:18 | Nephrology Progress Note ---
Assessment/Plan Problem List: (1) ESRF (end stage renal failure) (2) Septic shock (3) Anemia in chronic kidney disease, on chronic dialysis Assessment ESRD by history Septic Shock resolved low BP Left permacath Dementia Anemia HTN Previous Stroke Plan Cr lower transfused 2 units Antibiotics Cardura for BP and BPH HD as needed, not needed yet per orders H2O via GT Subjective ROS Limited/Unobtainable: No Constitutional: Reports: malaise Objective Objective Last 24 Hour Vital Signs Date Time Temp Pulse Resp B/P (MAP) Pulse Ox O2 Delivery O2 Flow Rate FiO2 01/18/18 08:11 Room Air 01/18/18 08:10 99 Room Air 21 01/18/18 08:09 89 22 Room Air 21 01/18/18 08:00 98.1 92 17 152/86 98 Room Air 98.1 01/18/18 04:00 97.7 87 20 145/85 99 Room Air 97.7 01/18/18 00:00 97.4 95 20 130/73 99 Room Air 97.4 01/17/18 20:09 98 Room Air 21 01/17/18 20:09 97 18 Room Air 21 01/17/18 20:09 Room Air 21 01/17/18 20:00 97.7 97 21 142/80 100 Room Air 97.7 01/17/18 16:00 98.1 95 18 156/88 99 Room Air 98.1 01/17/18 12:00 95 01/17/18 12:00 97.9 96 17 148/70 100 Room Air 97.9 Intake and Output 01/17/18 01/18/18 19:00 07:00 Intake Total 860.000 ml 560 ml Balance 860.000 ml 560 ml Free Water 190 ml 200 ml IV Total 400.000 ml Tube Feeding 270 ml 360 ml # Voids 4 2 # Bowel Movements 1 1 Laboratory Tests 01/18/18 04:50: White Blood Count 11.0H, Red Blood Count 3.45L, Hemoglobin 10.8L, Hematocrit 32.5L, Mean Corpuscular Volume 94, Mean Corpuscular Hemoglobin 31.2H, Mean Corpuscular Hemoglobin Concent 33.1, Red Cell Distribution Width 15.7H, Platelet Count 236, Mean Platelet Volume 6.6, Neutrophils (%) (Auto) 84.0H, Lymphocytes (%) (Auto) 7.9L, Monocytes (%) (Auto) 6.4, Eosinophils (%) (Auto) 1.5, Basophils (%) (Auto) 0.3, Sodium Level 147H, Potassium Level 3.4L, Chloride Level 115H, Carbon Dioxide Level 19L, Anion Gap 13, Blood Urea Nitrogen 93H, Creatinine 3.3H, Estimat Glomerular Filtration Rate , Glucose Level 141H, Uric Acid 7.9H, Calcium Level 8.5, Phosphorus Level 4.4, Magnesium Level 1.9, Total Bilirubin 0.5, Direct Bilirubin 0.2, Aspartate Amino Transf ( AST/SGOT) 39H, Alanine Aminotransferase (ALT/SGPT) 37, Alkaline Phosphatase 396H , Total Protein 6.6, Albumin 1.5L Height (Feet): 5 Height (Inches): 11.00 Weight (Pounds): 171 General Appearance: no apparent distress Objective PE not changed GIOVANNI BROUSSARD Jan 18, 2018 10:18
[2018-01-18] MEDS ORDERED: NS 500ML ONE (10:32)
--- NOTE | 2018-01-18 11:15 | Internal Med Progress Note ---
Subjective Date of Service: Jan 18, 2018 Physician Name Shelia Baumann Attending Physician Steve Gonzalez MD Current Medications Medications (Trade) Dose Ordered Sig/Elaina Route PRN Reason Start Time Stop Time Status Last Admin Dose Admin Acetaminophen (Tylenol) 650 mg Q4H PRN ORAL fever (temp>100.5F) 01/17/18 16:00 02/13/18 15:59 Albuterol/ Ipratropium (Albuterol/ Ipratropium) 3 ml Q4H PRN HHN Shortness of Breath 01/17/18 16:00 01/19/18 15:59 Chlorhexidine Gluconate (Samantha-Hex 2%) 1 applic DAILY@2000 TOPIC 01/17/18 20:00 02/16/18 19:59 01/17/18 21:01 Doxazosin Mesylate (Cardura) 1 mg Q8HR GT 01/18/18 14:00 02/16/18 15:44 Ertapenem 0.5 gm/ Sodium Chloride 110 ml @ 220 mls/hr Q24H IV 01/17/18 20:00 01/20/18 19:59 01/17/18 21:01 Famotidine (Pepcid) 20 mg BID GT 01/17/18 18:00 02/16/18 17:59 01/18/18 08:49 Heparin Sodium (Porcine) (Heparin 5000 units/ml) 5,000 units EVERY 12 HOURS SUBQ 01/17/18 21:00 02/13/18 20:59 01/18/18 09:51 Morphine Sulfate (Morphine Sulfate) 2 mg Q4H PRN IVP Severe Pain (Pain Scale 7-10) 01/17/18 16:00 01/21/18 15:59 Ondansetron HCl (Zofran) 4 mg Q6H PRN IVP Nausea & Vomiting 01/17/18 16:00 02/13/18 15:59 Polyethylene Glycol (Miralax) 17 gm DAILYPRN PRN ORAL Constipation 01/17/18 16:00 02/13/18 15:59 Allergies: Coded Allergies: No Known Allergies (Unverified , 01/14/18) ROS Limited/Unobtainable: Yes Subjective 72 YO M admitted with fever. Now sepsis. Cover for Int Med-Dr Gonzalez. Objective Last Vital Signs Date Time Temp Pulse Resp B/P (MAP) Pulse Ox O2 Delivery O2 Flow Rate FiO2 01/18/18 08:11 Room Air 01/18/18 08:10 99 21 01/18/18 08:09 89 22 01/18/18 08:00 98.1 152/86 98.1 01/15/18 17:00 1.0 Laboratory Tests Test 01/18/18 04:50 White Blood Count 11.0 K/UL (4.8-10.8) H Red Blood Count 3.45 M/UL (4.70-6.10) L Hemoglobin 10.8 G/DL (14.2-18.0) L Hematocrit 32.5 % (42.0-52.0) L Mean Corpuscular Volume 94 FL (80-99) Mean Corpuscular Hemoglobin 31.2 PG (27.0-31.0) H Mean Corpuscular Hemoglobin Concent 33.1 G/DL (32.0-36.0) Red Cell Distribution Width 15.7 % (11.6-14.8) H Platelet Count 236 K/UL (150-450) Mean Platelet Volume 6.6 FL (6.5-10.1) Neutrophils (%) (Auto) 84.0 % (45.0-75.0) H Lymphocytes (%) (Auto) 7.9 % (20.0-45.0) L Monocytes (%) (Auto) 6.4 % (1.0-10.0) Eosinophils (%) (Auto) 1.5 % (0.0-3.0) Basophils (%) (Auto) 0.3 % (0.0-2.0) Sodium Level 147 MMOL/L (136-145) H Potassium Level 3.4 MMOL/L (3.5-5.1) L Chloride Level 115 MMOL/L (98-107) H Carbon Dioxide Level 19 MMOL/L (21-32) L Anion Gap 13 mmol/L (5-15) Blood Urea Nitrogen 93 mg/dL (7-18) H Creatinine 3.3 MG/DL (0.55-1.30) H Estimat Glomerular Filtration Rate mL/min (>60) Glucose Level 141 MG/DL (74-106) H Uric Acid 7.9 MG/DL (2.6-7.2) H Calcium Level 8.5 MG/DL (8.5-10.1) Phosphorus Level 4.4 MG/DL (2.5-4.9) Magnesium Level 1.9 MG/DL (1.8-2.4) Total Bilirubin 0.5 MG/DL (0.2-1.0) Direct Bilirubin 0.2 MG/DL (0.0-0.3) Aspartate Amino Transf (AST/SGOT) 39 U/L (15-37) H Alanine Aminotransferase (ALT/SGPT) 37 U/L (12-78) Alkaline Phosphatase 396 U/L (46-116) H Total Protein 6.6 G/DL (6.4-8.2) Albumin 1.5 G/DL (3.4-5.0) L Intake and Output 01/17/18 01/18/18 19:00 07:00 Intake Total 860.000 ml 560 ml Balance 860.000 ml 560 ml Free Water 190 ml 200 ml IV Total 400.000 ml Tube Feeding 270 ml 360 ml # Voids 4 2 # Bowel Movements 1 1 Objective General Appearance: WD/WN, no apparent distress, alert EENT: PERRL/EOMI, normal ENT inspection Neck: non-tender, normal alignment, supple Cardiovascular: normal peripheral pulses, normal rate, regular rhythm, no gallop/murmur, no JVD Respiratory/Chest: chest wall non-tender, lungs clear, normal breath sounds, no respiratory distress, no accessory muscle use Abdomen: normal bowel sounds, non tender, soft, no organomegaly, no mass Skin: normal pigmentation, warm/dry Assessment/Plan Problem List: (1) Diabetes mellitus (2) ESRD (end stage renal disease) on dialysis (3) CAD (coronary artery disease) (4) CHF (congestive heart failure) (5) Sepsis Assessment & Plan: E.Coli. See ID note. Continue ertapenem per ID (6) Fever (7) Pneumonia (8) Feeding by G-tube (9) HTN (hypertension) (10) History of CVA (cerebrovascular accident) (11) Anemia in chronic kidney disease, on chronic dialysis Assessment & Plan: S/P transfusion 2 units PRBC Status: not improved SHELIA BAUMANN Jan 18, 2018 11:15
[2018-01-18 12:00] VITALS: BP 151/84
--- NOTE | 2018-01-18 13:41 | Pulmonology Progress Note ---
Assessment/Plan Problems: (1) Bacteremia (2) Septic shock (3) Pneumonia (4) ESRF (end stage renal failure) (5) Anemia in chronic kidney disease, on chronic dialysis (6) Feeding by G-tube (7) Hemiplegia (8) HTN (hypertension) (9) History of CVA (cerebrovascular accident) Assessment/Plan Blood culture positive for + EColi, pansensitive dc vancomycina amikacin wbc decreasing, down to 11 ID note appreciated HD by nephrology tolerating feeding dvt prophylaxis symptomatic treatment med/surg Subjective ROS Limited/Unobtainable: No Constitutional: Reports: no symptoms HEENT: Repors: no symptoms Respiratory: Reports: no symptoms Allergies: Coded Allergies: No Known Allergies (Unverified , 01/14/18) Objective Last 24 Hour Vital Signs Date Time Temp Pulse Resp B/P (MAP) Pulse Ox O2 Delivery O2 Flow Rate FiO2 01/18/18 12:00 98.1 97 18 151/84 99 Room Air 98.1 01/18/18 08:11 Room Air 01/18/18 08:10 99 Room Air 21 01/18/18 08:09 89 22 Room Air 21 01/18/18 08:00 98.1 92 17 152/86 98 Room Air 98.1 01/18/18 04:00 97.7 87 20 145/85 99 Room Air 97.7 01/18/18 00:00 97.4 95 20 130/73 99 Room Air 97.4 01/17/18 20:09 98 Room Air 21 01/17/18 20:09 97 18 Room Air 21 01/17/18 20:09 Room Air 21 01/17/18 20:00 97.7 97 21 142/80 100 Room Air 97.7 01/17/18 16:00 98.1 95 18 156/88 99 Room Air 98.1 Intake and Output 01/17/18 01/18/18 19:00 07:00 Intake Total 860.000 ml 560 ml Balance 860.000 ml 560 ml Free Water 190 ml 200 ml IV Total 400.000 ml Tube Feeding 270 ml 360 ml # Voids 4 2 # Bowel Movements 1 1 Objective General Appearance: cachectic Lines, tubes and drains: peripheral, HD access HEENT: normocephalic, atraumatic Neck: non-tender, supple Lungs: coarse rhonchi Breasts: no masses Cardiovascular/Chest: normal rate Abdomen: normal bowel sounds, non tender Extremities: moderate edema Skin Exam: other Laboratory Tests 01/18/18 04:50: White Blood Count 11.0H, Red Blood Count 3.45L, Hemoglobin 10.8L, Hematocrit 32.5L, Mean Corpuscular Volume 94, Mean Corpuscular Hemoglobin 31.2H, Mean Corpuscular Hemoglobin Concent 33.1, Red Cell Distribution Width 15.7H, Platelet Count 236, Mean Platelet Volume 6.6, Neutrophils (%) (Auto) 84.0H, Lymphocytes (%) (Auto) 7.9L, Monocytes (%) (Auto) 6.4, Eosinophils (%) (Auto) 1.5, Basophils (%) (Auto) 0.3, Sodium Level 147H, Potassium Level 3.4L, Chloride Level 115H, Carbon Dioxide Level 19L, Anion Gap 13, Blood Urea Nitrogen 93H, Creatinine 3.3H, Estimat Glomerular Filtration Rate , Glucose Level 141H, Uric Acid 7.9H, Calcium Level 8.5, Phosphorus Level 4.4, Magnesium Level 1.9, Total Bilirubin 0.5, Direct Bilirubin 0.2, Aspartate Amino Transf ( AST/SGOT) 39H, Alanine Aminotransferase (ALT/SGPT) 37, Alkaline Phosphatase 396H , Total Protein 6.6, Albumin 1.5L Current Medications Medications (Trade) Dose Ordered Sig/Elaina Route PRN Reason Start Time Stop Time Status Last Admin Dose Admin Acetaminophen (Tylenol) 650 mg Q4H PRN ORAL fever (temp>100.5F) 01/17/18 16:00 02/13/18 15:59 Albuterol/ Ipratropium (Albuterol/ Ipratropium) 3 ml Q4H PRN HHN Shortness of Breath 01/17/18 16:00 01/19/18 15:59 Chlorhexidine Gluconate (Samantha-Hex 2%) 1 applic DAILY@2000 TOPIC 01/17/18 20:00 02/16/18 19:59 01/17/18 21:01 Doxazosin Mesylate (Cardura) 1 mg Q8HR GT 01/18/18 14:00 02/16/18 15:44 Ertapenem 0.5 gm/ Sodium Chloride 110 ml @ 220 mls/hr Q24H IV 01/17/18 20:00 01/20/18 19:59 01/17/18 21:01 Famotidine (Pepcid) 20 mg BID GT 01/17/18 18:00 02/16/18 17:59 01/18/18 08:49 Heparin Sodium (Porcine) (Heparin 5000 units/ml) 5,000 units EVERY 12 HOURS SUBQ 01/17/18 21:00 02/13/18 20:59 01/18/18 09:51 Morphine Sulfate (Morphine Sulfate) 2 mg Q4H PRN IVP Severe Pain (Pain Scale 7-10) 01/17/18 16:00 01/21/18 15:59 Ondansetron HCl (Zofran) 4 mg Q6H PRN IVP Nausea & Vomiting 01/17/18 16:00 02/13/18 15:59 Polyethylene Glycol (Miralax) 17 gm DAILYPRN PRN ORAL Constipation 01/17/18 16:00 02/13/18 15:59 Bryson Reilly MD Jan 18, 2018 13:41
--- NOTE | 2018-01-18 13:59 | Cardiac Electrophysiology PN ---
Assessment/Plan Assessment/Plan 1. Rising troponin from 0.036 to 0.099 to 0.011 The patient is nonverbal. Elevated troponin could be due to the patient's renal failure as the patient is on hemodialysis. Echocardiogram EF 65% 2. Hypotension, likely due to septic shock. Resolved with IV fluid. Continue on IV antibiotic. WBC is improving 3. End-stage renal disease, on hemodialysis. 4. Dysphagia, status post PEG placement. 5. CVA. 6. Dementia. 7. Contraction of lower extremities. DW RN No HD today Subjective Subjective Comfortable and nonverbal.On NMB Objective Last 24 Hour Vital Signs Date Time Temp Pulse Resp B/P (MAP) Pulse Ox O2 Delivery O2 Flow Rate FiO2 01/18/18 12:00 98.1 97 18 151/84 99 Room Air 98.1 01/18/18 08:11 Room Air 01/18/18 08:10 99 Room Air 21 01/18/18 08:09 89 22 Room Air 21 01/18/18 08:00 98.1 92 17 152/86 98 Room Air 98.1 01/18/18 04:00 97.7 87 20 145/85 99 Room Air 97.7 01/18/18 00:00 97.4 95 20 130/73 99 Room Air 97.4 01/17/18 20:09 98 Room Air 21 01/17/18 20:09 97 18 Room Air 21 01/17/18 20:09 Room Air 21 01/17/18 20:00 97.7 97 21 142/80 100 Room Air 97.7 01/17/18 16:00 98.1 95 18 156/88 99 Room Air 98.1 Intake and Output 01/17/18 01/18/18 19:00 07:00 Intake Total 860.000 ml 560 ml Balance 860.000 ml 560 ml Free Water 190 ml 200 ml IV Total 400.000 ml Tube Feeding 270 ml 360 ml # Voids 4 2 # Bowel Movements 1 1 Laboratory Tests Test 01/18/18 04:50 White Blood Count 11.0 K/UL (4.8-10.8) H Red Blood Count 3.45 M/UL (4.70-6.10) L Hemoglobin 10.8 G/DL (14.2-18.0) L Hematocrit 32.5 % (42.0-52.0) L Mean Corpuscular Volume 94 FL (80-99) Mean Corpuscular Hemoglobin 31.2 PG (27.0-31.0) H Mean Corpuscular Hemoglobin Concent 33.1 G/DL (32.0-36.0) Red Cell Distribution Width 15.7 % (11.6-14.8) H Platelet Count 236 K/UL (150-450) Mean Platelet Volume 6.6 FL (6.5-10.1) Neutrophils (%) (Auto) 84.0 % (45.0-75.0) H Lymphocytes (%) (Auto) 7.9 % (20.0-45.0) L Monocytes (%) (Auto) 6.4 % (1.0-10.0) Eosinophils (%) (Auto) 1.5 % (0.0-3.0) Basophils (%) (Auto) 0.3 % (0.0-2.0) Sodium Level 147 MMOL/L (136-145) H Potassium Level 3.4 MMOL/L (3.5-5.1) L Chloride Level 115 MMOL/L (98-107) H Carbon Dioxide Level 19 MMOL/L (21-32) L Anion Gap 13 mmol/L (5-15) Blood Urea Nitrogen 93 mg/dL (7-18) H Creatinine 3.3 MG/DL (0.55-1.30) H Estimat Glomerular Filtration Rate mL/min (>60) Glucose Level 141 MG/DL (74-106) H Uric Acid 7.9 MG/DL (2.6-7.2) H Calcium Level 8.5 MG/DL (8.5-10.1) Phosphorus Level 4.4 MG/DL (2.5-4.9) Magnesium Level 1.9 MG/DL (1.8-2.4) Total Bilirubin 0.5 MG/DL (0.2-1.0) Direct Bilirubin 0.2 MG/DL (0.0-0.3) Aspartate Amino Transf (AST/SGOT) 39 U/L (15-37) H Alanine Aminotransferase (ALT/SGPT) 37 U/L (12-78) Alkaline Phosphatase 396 U/L (46-116) H Total Protein 6.6 G/DL (6.4-8.2) Albumin 1.5 G/DL (3.4-5.0) L Objective HEAD AND NECK: Shows no JVD. He has a left IJ dialysis catheter. LUNGS: Coarse rhonchi. CARDIOVASCULAR: Tachycardic. S1 and S2 with no gallop. ABDOMEN: Status post G-tube. EXTREMITIES: Contracted. Jhonson Burgos MD Jan 18, 2018 13:59
[2018-01-18 16:00] VITALS: BP 150/79
--- NOTE | 2018-01-18 19:39 | Infectious Diseases Prog Note ---
Assessment/Plan Assessment/Plan ASSESSMENT: The patient is a 72-year-old male with: Sepsis, SP Leukocytosis, improved Fever., SP bacteremia. EColi Rule out UTI. ( UCX was cancelled ) Elevated alkaline phosphatase, Ultrasound of the liver : no billary disease obstruction. Multiple decubitus, however, not grossly infected Sacral Wnd : poloy microbial ( Colonziation at this time ) Left lung pneumonia ? 01/16 : CXR: Question mild pulmonary vascular congestion, possibly exaggerated due to low lung volumes. Hypertension. End-stage renal disease, on hemodialysis. Status post PEG. Gout. Anemia. Multiple decubitus in the sacral area and lower extremists PLAN: continue the patient on ertapenem, amikacin, and vancomycin day # 4 , change to Levaquin d# Monitor cultures (blood and urine). Monitor CBC and BMP. Monitor chest x-ray. Subjective Constitutional: Denies: no symptoms, fever, chills, fatigue, anorexia, drenching sweats, other Allergies: Coded Allergies: No Known Allergies (Unverified , 01/14/18) Objective Vital Signs Last 24 Hour Vital Signs Date Time Temp Pulse Resp B/P (MAP) Pulse Ox O2 Delivery O2 Flow Rate FiO2 01/18/18 16:00 98.3 89 18 150/79 97 Room Air 98.3 01/18/18 12:00 98.1 97 18 151/84 99 Room Air 98.1 01/18/18 08:11 Room Air 01/18/18 08:10 99 Room Air 21 01/18/18 08:09 89 22 Room Air 21 01/18/18 08:00 98.1 92 17 152/86 98 Room Air 98.1 01/18/18 04:00 97.7 87 20 145/85 99 Room Air 97.7 01/18/18 00:00 97.4 95 20 130/73 99 Room Air 97.4 01/17/18 20:09 98 Room Air 21 01/17/18 20:09 97 18 Room Air 21 01/17/18 20:09 Room Air 21 01/17/18 20:00 97.7 97 21 142/80 100 Room Air 97.7 Height (Feet): 5 Height (Inches): 11.00 Weight (Pounds): 171 HEENT: anicteric Respiratory/Chest: no respiratory distress Cardiovascular: regular rhythm Abdomen: no organomegaly Laboratory Tests Test 01/18/18 04:50 White Blood Count 11.0 K/UL (4.8-10.8) H Red Blood Count 3.45 M/UL (4.70-6.10) L Hemoglobin 10.8 G/DL (14.2-18.0) L Hematocrit 32.5 % (42.0-52.0) L Mean Corpuscular Volume 94 FL (80-99) Mean Corpuscular Hemoglobin 31.2 PG (27.0-31.0) H Mean Corpuscular Hemoglobin Concent 33.1 G/DL (32.0-36.0) Red Cell Distribution Width 15.7 % (11.6-14.8) H Platelet Count 236 K/UL (150-450) Mean Platelet Volume 6.6 FL (6.5-10.1) Neutrophils (%) (Auto) 84.0 % (45.0-75.0) H Lymphocytes (%) (Auto) 7.9 % (20.0-45.0) L Monocytes (%) (Auto) 6.4 % (1.0-10.0) Eosinophils (%) (Auto) 1.5 % (0.0-3.0) Basophils (%) (Auto) 0.3 % (0.0-2.0) Sodium Level 147 MMOL/L (136-145) H Potassium Level 3.4 MMOL/L (3.5-5.1) L Chloride Level 115 MMOL/L (98-107) H Carbon Dioxide Level 19 MMOL/L (21-32) L Anion Gap 13 mmol/L (5-15) Blood Urea Nitrogen 93 mg/dL (7-18) H Creatinine 3.3 MG/DL (0.55-1.30) H Estimat Glomerular Filtration Rate mL/min (>60) Glucose Level 141 MG/DL (74-106) H Uric Acid 7.9 MG/DL (2.6-7.2) H Calcium Level 8.5 MG/DL (8.5-10.1) Phosphorus Level 4.4 MG/DL (2.5-4.9) Magnesium Level 1.9 MG/DL (1.8-2.4) Total Bilirubin 0.5 MG/DL (0.2-1.0) Direct Bilirubin 0.2 MG/DL (0.0-0.3) Aspartate Amino Transf (AST/SGOT) 39 U/L (15-37) H Alanine Aminotransferase (ALT/SGPT) 37 U/L (12-78) Alkaline Phosphatase 396 U/L (46-116) H Total Protein 6.6 G/DL (6.4-8.2) Albumin 1.5 G/DL (3.4-5.0) L Current Medications Medications (Trade) Dose Ordered Sig/Elaina Route PRN Reason Start Time Stop Time Status Last Admin Dose Admin Acetaminophen (Tylenol) 650 mg Q4H PRN ORAL fever (temp>100.5F) 01/17/18 16:00 02/13/18 15:59 Albuterol/ Ipratropium (Albuterol/ Ipratropium) 3 ml Q4H PRN HHN Shortness of Breath 01/17/18 16:00 01/19/18 15:59 Chlorhexidine Gluconate (Samantha-Hex 2%) 1 applic DAILY@2000 TOPIC 01/17/18 20:00 02/16/18 19:59 01/17/18 21:01 Doxazosin Mesylate (Cardura) 1 mg Q8HR GT 01/18/18 14:00 02/16/18 15:44 01/18/18 13:45 Ertapenem 0.5 gm/ Sodium Chloride 110 ml @ 220 mls/hr Q24H IV 01/17/18 20:00 01/20/18 19:59 01/17/18 21:01 Famotidine (Pepcid) 20 mg BID GT 01/17/18 18:00 02/16/18 17:59 01/18/18 17:22 Heparin Sodium (Porcine) (Heparin 5000 units/ml) 5,000 units EVERY 12 HOURS SUBQ 01/17/18 21:00 02/13/18 20:59 01/18/18 09:51 Morphine Sulfate (Morphine Sulfate) 2 mg Q4H PRN IVP Severe Pain (Pain Scale 7-10) 01/17/18 16:00 01/21/18 15:59 Ondansetron HCl (Zofran) 4 mg Q6H PRN IVP Nausea & Vomiting 01/17/18 16:00 02/13/18 15:59 Polyethylene Glycol (Miralax) 17 gm DAILYPRN PRN ORAL Constipation 01/17/18 16:00 02/13/18 15:59 Dario Rubi MD Jan 18, 2018 19:39
[2018-01-18 20:00] VITALS: BP 145/78
--- NOTE | 2018-01-18 21:12 | Cardiology Report ---
APPROVED REPORT EXAM: Two-dimensional and M-mode echocardiogram with Doppler and color Doppler. INDICATION Mitral valve disorder M-Mode DIMENSIONS IVSd1.7 (0.7-1.1cm)Left Atrium (MM)2.7 (1.6-4.0cm) LVDd4.2 (3.5-5.6cm)Aortic Root3.4 (2.0-3.7cm) PWd1.2 (0.7-1.1cm)Aortic Cusp Exc.2.3 (1.5-2.0cm) LVDs2.1 (2.5-4.0cm) PWs2.3 cm Technically difficult study due to heavy breathing and patient was very contracted. Study quality precludes accurate assessment of regional wall motion. Normal left ventricular chamber size, systolic function and wall motion. Left ventricular ejection fraction estimated to be 60-65 %. Mild left ventricular hypertrophy. Small to moderate circumferential pericardial effusion. All other cardiac chamber sizes are within normal limits. Focal aortic valve sclerosis with adequate cusp excursion. Mildly thickened mitral valve leaflets with normal excursion. Mild mitral annulus and aortic root calcification. Pulmonic valve not visualized. Normal tricuspid valve structure. Subcostal views not obtainable. A color flow and spectral Doppler study was performed and revealed: No aortic insufficiency. No mitral regurgitation. Mitral diastolic velocities suggest mild left ventricular diastolic dysfunction (Grade I). Trace tricuspid regurgitation. Tricuspid systolic velocities suggests peak right ventricular systolic pressure of 10 mmHg.
--- NOTE | 2018-01-18 21:27 | Cardiology Report ---
APPROVED REPORT EKG Measurement Heart [id number] Normal sinus rhythm Low voltage QRS Prolonged QT Abnormal ECG
[2018-01-18] MEDS: Dyna-Hex 2% Top Sol 2oz TOPIC SCH (21:41)
--- NOTE | 2018-01-18 23:45 | Consultation ---
History of Present Illness General Date patient seen: Jan 16, 2018 Chief Complaint: Fever Present Illness HPI 72-year-old gentleman with a history of hypertension, diabetes, and prior myocardial infarction and the patient has a history of CVA. the pt also has hx of dementia and agitation Allergies: Coded Allergies: No Known Allergies (Unverified , 01/14/18) Medication History Scheduled Acetaminophen (Acetaminophen), 80 MG GT Q4H, (Reported) Diltiazem Hcl* (Cardizem*), 30 MG GT QID, (Reported) Docusate Sodium* (Docusate Sodium*), 100 MG GT DAILY, (Reported) Lisinopril* (Lisinopril*), 10 MG GT DAILY, (Reported) Pantoprazole Sodium (Protonix), 40 MG GT DAILY, (Reported) Tamsulosin Hcl (Tamsulosin Hcl*), 0.4 MG GT BEDTIME, (Reported) Vitamin B Complex (Vitamin B Complex), 1 CAP GT DAILY, (Reported) Warfarin Sod* (Warfarin Sod*), 2 MG GT DAILY, (Reported) Zinc Sulfate (Zinc Sulfate*), 220 MG GT DAILY, (Reported) Scheduled PRN Ipratropium Reform 0.5MG/2.5ML (Ipratropium Reform 0.5MG/2.5ML), 0.5 MG HHN Q6H PRN for Shortness of Breath, (Reported) Miscellaneous Medications Darbepoetin Geoffrey in Polysorbat (Aranesp), 60 MCG IJ, (Reported) Insulin Detemir (Levemir Flextouch), 22 UNIT SQ, (Reported) Insulin Lispro (Admelog Solostar), 100 UNIT SQ, (Reported) Patient History Limited by: medical condition History Provided By: Patient, Medical Record, PMD Healthcare decision maker Resuscitation status Full Code Advanced Directive on File No Past Medical/Surgical History Past Medical/Surgical History: (1) Fever (2) Septic shock (3) ESRF (end stage renal failure) (4) HTN (hypertension) (5) History of CVA (cerebrovascular accident) (6) Pneumonia (7) Hemiplegia (8) Feeding by G-tube (9) Anemia in chronic kidney disease, on chronic dialysis (10) Diabetes mellitus (11) CAD (coronary artery disease) (12) CHF (congestive heart failure) (13) Sepsis (14) ESRD (end stage renal disease) on dialysis (15) Bacteremia (16) Hypokalemia (17) Hypernatremia Review of Systems Psychiatric: Reports: prior hx, anxiety, depressed feelings, emotional problems Physical Exam General Appearance: WD/WN, no apparent distress, alert, confused, agitated Last 24 Hour Vital Signs Date Time Temp Pulse Resp B/P (MAP) Pulse Ox O2 Delivery O2 Flow Rate FiO2 01/18/18 20:00 97.3 92 20 145/78 96 Room Air 97.3 01/18/18 16:00 98.3 89 18 150/79 97 Room Air 98.3 01/18/18 12:00 98.1 97 18 151/84 99 Room Air 98.1 01/18/18 08:11 Room Air 01/18/18 08:10 99 Room Air 21 01/18/18 08:09 89 22 Room Air 21 01/18/18 08:00 98.1 92 17 152/86 98 Room Air 98.1 01/18/18 04:00 97.7 87 20 145/85 99 Room Air 97.7 01/18/18 00:00 97.4 95 20 130/73 99 Room Air 97.4 Intake and Output 01/17/18 01/18/18 19:00 07:00 Intake Total 860.000 ml 600 ml Balance 860.000 ml 600 ml Free Water 190 ml 210 ml IV Total 400.000 ml Tube Feeding 270 ml 390 ml # Voids 4 2 # Bowel Movements 1 1 Laboratory Tests Test 01/18/18 04:50 White Blood Count 11.0 K/UL (4.8-10.8) H Red Blood Count 3.45 M/UL (4.70-6.10) L Hemoglobin 10.8 G/DL (14.2-18.0) L Hematocrit 32.5 % (42.0-52.0) L Mean Corpuscular Volume 94 FL (80-99) Mean Corpuscular Hemoglobin 31.2 PG (27.0-31.0) H Mean Corpuscular Hemoglobin Concent 33.1 G/DL (32.0-36.0) Red Cell Distribution Width 15.7 % (11.6-14.8) H Platelet Count 236 K/UL (150-450) Mean Platelet Volume 6.6 FL (6.5-10.1) Neutrophils (%) (Auto) 84.0 % (45.0-75.0) H Lymphocytes (%) (Auto) 7.9 % (20.0-45.0) L Monocytes (%) (Auto) 6.4 % (1.0-10.0) Eosinophils (%) (Auto) 1.5 % (0.0-3.0) Basophils (%) (Auto) 0.3 % (0.0-2.0) Sodium Level 147 MMOL/L (136-145) H Potassium Level 3.4 MMOL/L (3.5-5.1) L Chloride Level 115 MMOL/L (98-107) H Carbon Dioxide Level 19 MMOL/L (21-32) L Anion Gap 13 mmol/L (5-15) Blood Urea Nitrogen 93 mg/dL (7-18) H Creatinine 3.3 MG/DL (0.55-1.30) H Estimat Glomerular Filtration Rate mL/min (>60) Glucose Level 141 MG/DL (74-106) H Uric Acid 7.9 MG/DL (2.6-7.2) H Calcium Level 8.5 MG/DL (8.5-10.1) Phosphorus Level 4.4 MG/DL (2.5-4.9) Magnesium Level 1.9 MG/DL (1.8-2.4) Total Bilirubin 0.5 MG/DL (0.2-1.0) Direct Bilirubin 0.2 MG/DL (0.0-0.3) Aspartate Amino Transf (AST/SGOT) 39 U/L (15-37) H Alanine Aminotransferase (ALT/SGPT) 37 U/L (12-78) Alkaline Phosphatase 396 U/L (46-116) H Total Protein 6.6 G/DL (6.4-8.2) Albumin 1.5 G/DL (3.4-5.0) L Height (Feet): 5 Height (Inches): 11.00 Weight (Pounds): 171 Medications Current Medications Medications (Trade) Dose Ordered Sig/Elaina Route PRN Reason Start Time Stop Time Status Last Admin Dose Admin Acetaminophen (Tylenol) 650 mg Q4H PRN ORAL fever (temp>100.5F) 01/17/18 16:00 02/13/18 15:59 Albuterol/ Ipratropium (Albuterol/ Ipratropium) 3 ml Q4H PRN HHN Shortness of Breath 01/17/18 16:00 01/19/18 15:59 Chlorhexidine Gluconate (Samantha-Hex 2%) 1 applic DAILY@2000 TOPIC 01/17/18 20:00 02/16/18 19:59 01/18/18 21:41 Doxazosin Mesylate (Cardura) 1 mg Q8HR GT 01/18/18 14:00 02/16/18 15:44 01/18/18 21:41 Famotidine (Pepcid) 20 mg BID GT 01/17/18 18:00 02/16/18 17:59 01/18/18 17:22 Heparin Sodium (Porcine) (Heparin 5000 units/ml) 5,000 units EVERY 12 HOURS SUBQ 01/17/18 21:00 02/13/18 20:59 01/18/18 21:42 Levofloxacin 150 ml @ 150 mls/hr Q48H IVPB 01/18/18 21:00 01/25/18 23:59 01/18/18 21:41 Morphine Sulfate (Morphine Sulfate) 2 mg Q4H PRN IVP Severe Pain (Pain Scale 7-10) 01/17/18 16:00 01/21/18 15:59 Ondansetron HCl (Zofran) 4 mg Q6H PRN IVP Nausea & Vomiting 01/17/18 16:00 02/13/18 15:59 Polyethylene Glycol (Miralax) 17 gm DAILYPRN PRN ORAL Constipation 01/17/18 16:00 02/13/18 15:59 Assessment/Plan Assessment/Plan encephalopathy dementia with behavioral disturbance -cont current mes -ativan prn Lakhwinder Faust M.D. Jan 18, 2018 23:45
--- NOTE | 2018-01-18 23:46 | General Progress Note ---
Assessment/Plan Assessment/Plan encephalopathy dementia with behavioral disturbance -cont current mes -ativan prn Subjective Date patient seen: Jan 17, 2018 Neurologic/Psychiatric: Reports: anxiety, emotional problems Allergies: Coded Allergies: No Known Allergies (Unverified , 01/14/18) Objective Last 24 Hour Vital Signs Date Time Temp Pulse Resp B/P (MAP) Pulse Ox O2 Delivery O2 Flow Rate FiO2 01/18/18 20:00 97.3 92 20 145/78 96 Room Air 97.3 01/18/18 16:00 98.3 89 18 150/79 97 Room Air 98.3 01/18/18 12:00 98.1 97 18 151/84 99 Room Air 98.1 01/18/18 08:11 Room Air 01/18/18 08:10 99 Room Air 21 01/18/18 08:09 89 22 Room Air 21 01/18/18 08:00 98.1 92 17 152/86 98 Room Air 98.1 01/18/18 04:00 97.7 87 20 145/85 99 Room Air 97.7 01/18/18 00:00 97.4 95 20 130/73 99 Room Air 97.4 Intake and Output 01/17/18 01/18/18 19:00 07:00 Intake Total 860.000 ml 600 ml Balance 860.000 ml 600 ml Free Water 190 ml 210 ml IV Total 400.000 ml Tube Feeding 270 ml 390 ml # Voids 4 2 # Bowel Movements 1 1 Laboratory Tests 01/18/18 04:50: White Blood Count 11.0H, Red Blood Count 3.45L, Hemoglobin 10.8L, Hematocrit 32.5L, Mean Corpuscular Volume 94, Mean Corpuscular Hemoglobin 31.2H, Mean Corpuscular Hemoglobin Concent 33.1, Red Cell Distribution Width 15.7H, Platelet Count 236, Mean Platelet Volume 6.6, Neutrophils (%) (Auto) 84.0H, Lymphocytes (%) (Auto) 7.9L, Monocytes (%) (Auto) 6.4, Eosinophils (%) (Auto) 1.5, Basophils (%) (Auto) 0.3, Sodium Level 147H, Potassium Level 3.4L, Chloride Level 115H, Carbon Dioxide Level 19L, Anion Gap 13, Blood Urea Nitrogen 93H, Creatinine 3.3H, Estimat Glomerular Filtration Rate , Glucose Level 141H, Uric Acid 7.9H, Calcium Level 8.5, Phosphorus Level 4.4, Magnesium Level 1.9, Total Bilirubin 0.5, Direct Bilirubin 0.2, Aspartate Amino Transf ( AST/SGOT) 39H, Alanine Aminotransferase (ALT/SGPT) 37, Alkaline Phosphatase 396H , Total Protein 6.6, Albumin 1.5L Height (Feet): 5 Height (Inches): 11.00 Weight (Pounds): 171 General Appearance: no apparent distress, alert, confused Lakhwinder Faust M.D. Jan 18, 2018 23:46
[2018-01-19] VITALS (7 sets, daily range): BP systolic 140–158; BP diastolic 74–91
[2018-01-19] MEDS: Doxazosin 1mg Tab GT SCH ×2 (05:18→18:23)
[2018-01-19] MEDS ORDERED: Tubing IV Secondary IV ONE (08:51)
[2018-01-19] MEDS: Heparin 5000 units/ml inj SUBQ SCH ×2 (09:31→20:42)
--- NOTE | 2018-01-19 12:26 | Infectious Diseases Prog Note ---
Assessment/Plan Assessment/Plan ASSESSMENT: The patient is a 72-year-old male with: Sepsis, SP Leukocytosis, improved Fever., SP bacteremia. EColi probably UTI. (UCX was cancelled) Elevated alkaline phosphatase, Ultrasound of the liver : no billary disease obstruction. Multiple decubitus, however, not grossly infected Sacral Wnd : poloy microbial ( Colonziation at this time ) Left lung pneumonia ? 01/16 : CXR: Question mild pulmonary vascular congestion, possibly exaggerated due to low lung volumes. Hypertension. End-stage renal disease, on hemodialysis. Status post PEG. Gout. Anemia. Multiple decubitus in the sacral area and lower extremists PLAN: continue the patient on Levaquin d# 2 / 7 01/18 SP ertapenem, amikacin, and vancomycin day # 4 Monitor cultures (blood and urine) Monitor CBC and BMP. Monitor chest x-ray. Subjective Constitutional: Denies: no symptoms, fever, chills, fatigue, anorexia, drenching sweats, other Allergies: Coded Allergies: No Known Allergies (Unverified , 01/14/18) Objective Vital Signs Last 24 Hour Vital Signs Date Time Temp Pulse Resp B/P (MAP) Pulse Ox O2 Delivery O2 Flow Rate FiO2 01/19/18 08:00 Room Air 01/19/18 08:00 96.8 98 20 145/78 100 96.8 01/19/18 04:00 97.3 94 20 151/82 100 Room Air 97.3 01/19/18 00:26 97.7 93 20 140/74 97 Room Air 97.7 01/18/18 20:00 97.3 92 20 145/78 96 Room Air 97.3 01/18/18 16:00 98.3 89 18 150/79 97 Room Air 98.3 Height (Feet): 5 Height (Inches): 11.00 Weight (Pounds): 172 HEENT: atraumatic Respiratory/Chest: normal breath sounds Cardiovascular: regularly irregular Abdomen: no organomegaly Laboratory Tests Test 01/19/18 07:05 Random Vancomycin Level 18.5 ug/mL Current Medications Medications (Trade) Dose Ordered Sig/Elaina Route PRN Reason Start Time Stop Time Status Last Admin Dose Admin Acetaminophen (Tylenol) 650 mg Q4H PRN ORAL fever (temp>100.5F) 01/17/18 16:00 02/13/18 15:59 Albuterol/ Ipratropium (Albuterol/ Ipratropium) 3 ml Q4H PRN HHN Shortness of Breath 01/17/18 16:00 01/19/18 15:59 Chlorhexidine Gluconate (Samantha-Hex 2%) 1 applic DAILY@2000 TOPIC 01/17/18 20:00 02/16/18 19:59 01/18/18 21:41 Doxazosin Mesylate (Cardura) 1 mg Q8HR GT 01/18/18 14:00 02/16/18 15:44 01/19/18 05:18 Famotidine (Pepcid) 20 mg BID GT 01/17/18 18:00 02/16/18 17:59 01/19/18 09:30 Heparin Sodium (Porcine) (Heparin 5000 units/ml) 5,000 units EVERY 12 HOURS SUBQ 01/17/18 21:00 02/13/18 20:59 01/19/18 09:31 Levofloxacin 150 ml @ 150 mls/hr Q48H IVPB 01/18/18 21:00 01/25/18 23:59 01/18/18 21:41 Morphine Sulfate (Morphine Sulfate) 2 mg Q4H PRN IVP Severe Pain (Pain Scale 7-10) 01/17/18 16:00 01/21/18 15:59 Ondansetron HCl (Zofran) 4 mg Q6H PRN IVP Nausea & Vomiting 01/17/18 16:00 02/13/18 15:59 Polyethylene Glycol (Miralax) 17 gm DAILYPRN PRN ORAL Constipation 01/17/18 16:00 02/13/18 15:59 Dario Rubi MD Jan 19, 2018 12:26
--- NOTE | 2018-01-19 13:55 | Nephrology Progress Note ---
Assessment/Plan Problem List: (1) ESRF (end stage renal failure) (2) Septic shock (3) Anemia in chronic kidney disease, on chronic dialysis Assessment ESRD by history Septic Shock resolved low BP Left permacath Dementia Anemia HTN Previous Stroke Plan no labs today Cr lower transfused 2 units Antibiotics Cardura for BP and BPH HD as needed, not needed yet per orders H2O via GT Subjective ROS Limited/Unobtainable: No Constitutional: Reports: malaise, weakness Objective Objective Last 24 Hour Vital Signs Date Time Temp Pulse Resp B/P (MAP) Pulse Ox O2 Delivery O2 Flow Rate FiO2 01/19/18 12:00 98.3 98 16 157/91 100 Room Air 98.3 01/19/18 08:00 Room Air 01/19/18 08:00 96.8 98 20 145/78 100 96.8 01/19/18 04:00 97.3 94 20 151/82 100 Room Air 97.3 01/19/18 00:26 97.7 93 20 140/74 97 Room Air 97.7 01/18/18 20:00 97.3 92 20 145/78 96 Room Air 97.3 01/18/18 16:00 98.3 89 18 150/79 97 Room Air 98.3 Intake and Output 01/18/18 01/19/18 19:00 07:00 Intake Total 660 ml 620 ml Balance 660 ml 620 ml Free Water 300 ml 260 ml Tube Feeding 360 ml 360 ml # Voids 3 # Bowel Movements 2 Laboratory Tests 01/19/18 07:05: Random Vancomycin Level 18.5 Height (Feet): 5 Height (Inches): 11.00 Weight (Pounds): 172 General Appearance: no apparent distress Respiratory/Chest: decreased breath sounds Objective PE not changed GIOVANNI BROUSSARD Jan 19, 2018 13:55
--- NOTE | 2018-01-19 15:16 | Pulmonology Progress Note ---
Assessment/Plan Problems: (1) Bacteremia (2) Septic shock (3) Pneumonia (4) ESRF (end stage renal failure) (5) Anemia in chronic kidney disease, on chronic dialysis (6) Feeding by G-tube (7) Hemiplegia (8) HTN (hypertension) (9) History of CVA (cerebrovascular accident) Assessment/Plan Blood culture positive for + EColi, pansensitive dc vancomycina amikacin wbc decreasing, down to 11 ID note appreciated, on Levofloxacin IV HD by nephrology tolerating feeding dvt prophylaxis symptomatic treatment med/surg might get discharged if wbc wnl and afebrile in am Subjective ROS Limited/Unobtainable: No Constitutional: Reports: no symptoms HEENT: Repors: no symptoms Respiratory: Reports: no symptoms Allergies: Coded Allergies: No Known Allergies (Unverified , 01/14/18) Objective Last 24 Hour Vital Signs Date Time Temp Pulse Resp B/P (MAP) Pulse Ox O2 Delivery O2 Flow Rate FiO2 01/19/18 12:00 98.3 98 16 157/91 100 Room Air 98.3 01/19/18 08:00 Room Air 01/19/18 08:00 96.8 98 20 145/78 100 96.8 01/19/18 04:00 97.3 94 20 151/82 100 Room Air 97.3 01/19/18 00:26 97.7 93 20 140/74 97 Room Air 97.7 01/18/18 20:00 97.3 92 20 145/78 96 Room Air 97.3 01/18/18 16:00 98.3 89 18 150/79 97 Room Air 98.3 Intake and Output 01/18/18 01/19/18 19:00 07:00 Intake Total 660 ml 620 ml Balance 660 ml 620 ml Free Water 300 ml 260 ml Tube Feeding 360 ml 360 ml # Voids 3 # Bowel Movements 2 Objective General Appearance: cachectic Lines, tubes and drains: peripheral, HD access HEENT: normocephalic, atraumatic Neck: non-tender, supple Lungs: coarse rhonchi Breasts: no masses Cardiovascular/Chest: normal rate Abdomen: normal bowel sounds, non tender Extremities: moderate edema Skin Exam: other Laboratory Tests 01/19/18 07:05: C-Reactive Protein, Quantitative 13.3H, Random Vancomycin Level 18.5 Current Medications Medications (Trade) Dose Ordered Sig/Elaina Route PRN Reason Start Time Stop Time Status Last Admin Dose Admin Acetaminophen (Tylenol) 650 mg Q4H PRN ORAL fever (temp>100.5F) 01/17/18 16:00 02/13/18 15:59 Albuterol/ Ipratropium (Albuterol/ Ipratropium) 3 ml Q4H PRN HHN Shortness of Breath 01/17/18 16:00 01/19/18 15:59 Chlorhexidine Gluconate (Samantha-Hex 2%) 1 applic DAILY@2000 TOPIC 01/17/18 20:00 02/16/18 19:59 01/18/18 21:41 Doxazosin Mesylate (Cardura) 1 mg Q6HR GT 01/19/18 18:00 02/16/18 15:44 Famotidine (Pepcid) 20 mg BID GT 01/17/18 18:00 02/16/18 17:59 01/19/18 09:30 Heparin Sodium (Porcine) (Heparin 5000 units/ml) 5,000 units EVERY 12 HOURS SUBQ 01/17/18 21:00 02/13/18 20:59 01/19/18 09:31 Levofloxacin 150 ml @ 150 mls/hr Q48H IVPB 01/18/18 21:00 01/25/18 23:59 01/18/18 21:41 Morphine Sulfate (Morphine Sulfate) 2 mg Q4H PRN IVP Severe Pain (Pain Scale 7-10) 01/17/18 16:00 01/21/18 15:59 Ondansetron HCl (Zofran) 4 mg Q6H PRN IVP Nausea & Vomiting 01/17/18 16:00 02/13/18 15:59 Polyethylene Glycol (Miralax) 17 gm DAILYPRN PRN ORAL Constipation 01/17/18 16:00 02/13/18 15:59 Bryson Reilly MD Jan 19, 2018 15:16
--- NOTE | 2018-01-19 17:12 | Internal Med Progress Note ---
Subjective Date of Service: Jan 19, 2018 Physician Name Shelia Baumann Attending Physician Steve Gonzalez MD Current Medications Medications (Trade) Dose Ordered Sig/Elaina Route PRN Reason Start Time Stop Time Status Last Admin Dose Admin Acetaminophen (Tylenol) 650 mg Q4H PRN ORAL fever (temp>100.5F) 01/17/18 16:00 02/13/18 15:59 Chlorhexidine Gluconate (Samantha-Hex 2%) 1 applic DAILY@2000 TOPIC 01/17/18 20:00 02/16/18 19:59 01/18/18 21:41 Doxazosin Mesylate (Cardura) 1 mg Q6HR GT 01/19/18 18:00 02/16/18 15:44 Famotidine (Pepcid) 20 mg BID GT 01/17/18 18:00 02/16/18 17:59 01/19/18 09:30 Heparin Sodium (Porcine) (Heparin 5000 units/ml) 5,000 units EVERY 12 HOURS SUBQ 01/17/18 21:00 02/13/18 20:59 01/19/18 09:31 Levofloxacin 150 ml @ 150 mls/hr Q48H IVPB 01/18/18 21:00 01/25/18 23:59 01/18/18 21:41 Morphine Sulfate (Morphine Sulfate) 2 mg Q4H PRN IVP Severe Pain (Pain Scale 7-10) 01/17/18 16:00 01/21/18 15:59 Ondansetron HCl (Zofran) 4 mg Q6H PRN IVP Nausea & Vomiting 01/17/18 16:00 02/13/18 15:59 Polyethylene Glycol (Miralax) 17 gm DAILYPRN PRN ORAL Constipation 01/17/18 16:00 02/13/18 15:59 Allergies: Coded Allergies: No Known Allergies (Unverified , 01/14/18) ROS Limited/Unobtainable: Yes Subjective 72 YO M admitted with fever. Now sepsis. Cover for Int Med-Dr Gonzalez. Objective Last Vital Signs Date Time Temp Pulse Resp B/P (MAP) Pulse Ox O2 Delivery O2 Flow Rate FiO2 01/19/18 12:00 98.3 98 16 157/91 100 Room Air 98.3 01/18/18 08:10 21 01/15/18 17:00 1.0 Laboratory Tests Test 01/19/18 07:05 C-Reactive Protein, Quantitative 13.3 mg/dL (0.00-0.90) H Random Vancomycin Level 18.5 ug/mL Intake and Output 01/18/18 01/19/18 19:00 07:00 Intake Total 660 ml 620 ml Balance 660 ml 620 ml Free Water 300 ml 260 ml Tube Feeding 360 ml 360 ml # Voids 3 # Bowel Movements 2 Objective General Appearance: WD/WN, no apparent distress, alert EENT: PERRL/EOMI, normal ENT inspection Neck: non-tender, normal alignment, supple Cardiovascular: normal peripheral pulses, normal rate, regular rhythm, no gallop/murmur, no JVD Respiratory/Chest: chest wall non-tender, lungs clear, normal breath sounds, no respiratory distress, no accessory muscle use Abdomen: normal bowel sounds, non tender, soft, no organomegaly, no mass Skin: normal pigmentation, warm/dry Assessment/Plan Problem List: (1) Diabetes mellitus (2) ESRD (end stage renal disease) on dialysis (3) CAD (coronary artery disease) (4) CHF (congestive heart failure) (5) Sepsis Assessment & Plan: E.Coli. See ID note. Continue ertapenem per ID (6) Fever (7) Pneumonia (8) Feeding by G-tube (9) HTN (hypertension) (10) History of CVA (cerebrovascular accident) (11) Anemia in chronic kidney disease, on chronic dialysis Assessment & Plan: S/P transfusion 2 units PRBC Status: not improved SHELIA BAUMANN Jan 19, 2018 17:12
--- NOTE | 2018-01-19 17:14 | Cardiac Electrophysiology PN ---
Assessment/Plan Assessment/Plan 1. Elevated troponin 0.036 to 0.099 to 0.011 The patient is nonverbal. Likely due to the patient's renal failure as the patient is on hemodialysis. Echocardiogram EF 65% 2. Hypotension, likely due to septic shock. Resolved with IV fluid. Continue on IV antibiotic. 3. End-stage renal disease, on hemodialysis. 4. Dysphagia, status post PEG placement. 5. CVA. 6. Dementia. 7. Contraction of lower extremities. KURTIS RN Subjective Subjective Comfortable and nonverbal.No events Objective Last 24 Hour Vital Signs Date Time Temp Pulse Resp B/P (MAP) Pulse Ox O2 Delivery O2 Flow Rate FiO2 01/19/18 12:00 98.3 98 16 157/91 100 Room Air 98.3 01/19/18 08:00 Room Air 01/19/18 08:00 96.8 98 20 145/78 100 96.8 01/19/18 04:00 97.3 94 20 151/82 100 Room Air 97.3 01/19/18 00:26 97.7 93 20 140/74 97 Room Air 97.7 01/18/18 20:00 97.3 92 20 145/78 96 Room Air 97.3 Intake and Output 01/18/18 01/19/18 19:00 07:00 Intake Total 660 ml 620 ml Balance 660 ml 620 ml Free Water 300 ml 260 ml Tube Feeding 360 ml 360 ml # Voids 3 # Bowel Movements 2 Laboratory Tests Test 01/19/18 07:05 C-Reactive Protein, Quantitative 13.3 mg/dL (0.00-0.90) H Random Vancomycin Level 18.5 ug/mL Objective HEAD AND NECK: Shows no JVD. Left IJ dialysis catheter. LUNGS: Coarse rhonchi. CARDIOVASCULAR: Tachycardic. S1 and S2 with no gallop. ABDOMEN: Status post G-tube. EXTREMITIES: Contracted. Johnson Burgos MD Jan 19, 2018 17:14
[2018-01-19] MEDS: Dyna-Hex 2% Top Sol 2oz TOPIC SCH (20:40)
[2018-01-20] VITALS (7 sets, daily range): BP systolic 125–143; BP diastolic 72–88
[2018-01-20] MEDS: Doxazosin 1mg Tab GT SCH ×4 (00:15→17:11)
[2018-01-20 07:04] LABS: ALANINE AMINOTRANSFERASE 20 U/L (12-78); ALBUMIN 1.5 G/DL (3.4-5.0); ALBUMIN/GLOBULIN RATIO 0.2 (1.0-2.7); ALKALINE PHOSPHATASE 277 U/L (46-116); ANION GAP 12 mmol/L (5-15); ASPARTATE AMINO TRANSFERASE 19 U/L (15-37); BILIRUBIN,TOTAL 0.6 MG/DL (0.2-1.0); BLOOD UREA NITROGEN 96 mg/dL (7-18); CALCIUM 9.1 MG/DL (8.5-10.1); CARBON DIOXIDE 22 MMOL/L (21-32); CHLORIDE 116 MMOL/L (98-107); CREATININE 3.2 MG/DL (0.55-1.30); PHOSPHORUS 4.1 MG/DL (2.5-4.9); POTASSIUM 3.4 MMOL/L (3.5-5.1); SODIUM 150 MMOL/L (136-145)
[2018-01-20 07:09] LABS: HEMATOCRIT 34.7 % (42.0-52.0); HEMOGLOBIN 11.3 G/DL (14.2-18.0); MEAN CORPUSCULAR VOLUME 95 FL (80-99); PLATELET COUNT 266 K/UL (150-450); RED BLOOD COUNT 3.67 M/UL (4.70-6.10); WHITE BLOOD COUNT 13.3 K/UL (4.8-10.8)
[2018-01-20] MEDS: Heparin 5000 units/ml inj SUBQ SCH ×2 (08:46→21:58)
--- NOTE | 2018-01-20 11:13 | Nephrology Progress Note ---
Assessment/Plan Problem List: (1) ESRF (end stage renal failure) (2) Septic shock (3) Anemia in chronic kidney disease, on chronic dialysis Assessment ESRD by history Septic Shock resolved low BP Left permacath Dementia Anemia HTN Previous Stroke Plan Cr lower transfused 2 units Antibiotics Cardura for BP and BPH HD , not needed yet per orders H2O via GT K via Gt one dose Subjective ROS Limited/Unobtainable: No Constitutional: Reports: malaise Objective Objective Last 24 Hour Vital Signs Date Time Temp Pulse Resp B/P (MAP) Pulse Ox O2 Delivery O2 Flow Rate FiO2 01/20/18 08:00 98.1 101 16 136/88 98 Room Air 98.1 01/20/18 07:30 83 18 Room Air 21 01/20/18 04:00 99 Room Air 01/20/18 04:00 97.7 90 19 125/72 99 97.7 01/20/18 00:00 99 Room Air 01/20/18 00:00 98.8 101 19 143/80 99 98.8 01/19/18 20:06 Room Air 01/19/18 20:06 87 18 Room Air 21 01/19/18 20:06 94 Room Air 21 01/19/18 20:00 97.8 100 19 158/82 97 97.8 01/19/18 20:00 97 Room Air 01/19/18 18:18 108 154/76 01/19/18 16:00 Room Air 01/19/18 16:00 98.0 100 20 155/91 94 98.0 01/19/18 12:00 98.3 98 16 157/91 100 Room Air 98.3 Intake and Output 01/19/18 01/20/18 19:00 07:00 Intake Total 530 ml 560 ml Output Total 600 ml Balance -70 ml 560 ml Free Water 200 ml 200 ml Tube Feeding 330 ml 360 ml Output Urine Total 600 ml # Bowel Movements 1 Laboratory Tests 01/20/18 05:45: White Blood Count 13.3H, Red Blood Count 3.67L, Hemoglobin 11.3L, Hematocrit 34.7L, Mean Corpuscular Volume 95, Mean Corpuscular Hemoglobin 30.9, Mean Corpuscular Hemoglobin Concent 32.6, Red Cell Distribution Width 15.0H, Platelet Count 266, Mean Platelet Volume 6.9, Neutrophils (%) (Auto) , Lymphocytes (%) (Auto) , Monocytes (%) (Auto) , Eosinophils (%) (Auto) , Basophils (%) (Auto) , Differential Total Cells Counted 100, Neutrophils % ( Manual) 86H, Lymphocytes % (Manual) 3L, Monocytes % (Manual) 7, Eosinophils % ( Manual) 4H, Basophils % (Manual) 0, Band Neutrophils 0, Platelet Estimate Adequate, Platelet Morphology Normal, Anisocytosis 1+, Sodium Level 150H, Potassium Level 3.4L, Chloride Level 116H, Carbon Dioxide Level 22, Anion Gap 12 , Blood Urea Nitrogen 96H, Creatinine 3.2H, Estimat Glomerular Filtration Rate , Glucose Level 175H, Uric Acid 8.3H, Calcium Level 9.1, Phosphorus Level 4.1, Magnesium Level 1.8, Total Bilirubin 0.6, Aspartate Amino Transf (AST/SGOT) 19, Alanine Aminotransferase (ALT/SGPT) 20, Alkaline Phosphatase 277H, Pro-B-Type Natriuretic Peptide 4596H, Total Protein 7.6, Albumin 1.5L, Globulin 6.1, Albumin/Globulin Ratio 0.2L Height (Feet): 5 Height (Inches): 11.00 Weight (Pounds): 162 General Appearance: no apparent distress Cardiovascular: tachycardia Respiratory/Chest: decreased breath sounds Abdomen: soft Objective PE not changed GIOVANNI BROUSSARD Jan 20, 2018 11:13
--- NOTE | 2018-01-20 11:42 | Internal Med Progress Note ---
Subjective Date of Service: Jan 20, 2018 Physician Name Shelia Baumann Attending Physician Steve Gonzalez MD Current Medications Medications (Trade) Dose Ordered Sig/Elaina Route PRN Reason Start Time Stop Time Status Last Admin Dose Admin Acetaminophen (Tylenol) 650 mg Q4H PRN ORAL fever (temp>100.5F) 01/17/18 16:00 02/13/18 15:59 Chlorhexidine Gluconate (Samantha-Hex 2%) 1 applic DAILY@2000 TOPIC 01/17/18 20:00 02/16/18 19:59 01/19/18 20:40 Dextrose 500 ml @ 500 mls/hr ONCE ONCE IV 01/20/18 11:30 01/20/18 12:29 Doxazosin Mesylate (Cardura) 1 mg Q6HR GT 01/19/18 18:00 02/16/18 15:44 01/20/18 05:22 Famotidine (Pepcid) 20 mg BID GT 01/17/18 18:00 02/16/18 17:59 01/20/18 08:42 Heparin Sodium (Porcine) (Heparin 5000 units/ml) 5,000 units EVERY 12 HOURS SUBQ 01/17/18 21:00 02/13/18 20:59 01/20/18 08:46 Levofloxacin 150 ml @ 150 mls/hr Q48H IVPB 01/18/18 21:00 01/25/18 23:59 01/18/18 21:41 Morphine Sulfate (Morphine Sulfate) 2 mg Q4H PRN IVP Severe Pain (Pain Scale 7-10) 01/17/18 16:00 01/21/18 15:59 Ondansetron HCl (Zofran) 4 mg Q6H PRN IVP Nausea & Vomiting 01/17/18 16:00 02/13/18 15:59 Polyethylene Glycol (Miralax) 17 gm DAILYPRN PRN ORAL Constipation 01/17/18 16:00 02/13/18 15:59 Potassium Chloride (K-Dur) 20 meq ONCE GT 01/20/18 11:30 01/20/18 12:30 Allergies: Coded Allergies: No Known Allergies (Unverified , 01/14/18) ROS Limited/Unobtainable: Yes Subjective 72 YO M admitted with fever. Now sepsis. Cover for Int Med-Dr Gonzalez. Objective Last Vital Signs Date Time Temp Pulse Resp B/P (MAP) Pulse Ox O2 Delivery O2 Flow Rate FiO2 01/20/18 08:00 98.1 101 16 136/88 98 Room Air 98.1 01/20/18 07:30 21 01/15/18 17:00 1.0 Laboratory Tests Test 01/20/18 05:45 White Blood Count 13.3 K/UL (4.8-10.8) H Red Blood Count 3.67 M/UL (4.70-6.10) L Hemoglobin 11.3 G/DL (14.2-18.0) L Hematocrit 34.7 % (42.0-52.0) L Mean Corpuscular Volume 95 FL (80-99) Mean Corpuscular Hemoglobin 30.9 PG (27.0-31.0) Mean Corpuscular Hemoglobin Concent 32.6 G/DL (32.0-36.0) Red Cell Distribution Width 15.0 % (11.6-14.8) H Platelet Count 266 K/UL (150-450) Mean Platelet Volume 6.9 FL (6.5-10.1) Neutrophils (%) (Auto) % (45.0-75.0) Lymphocytes (%) (Auto) % (20.0-45.0) Monocytes (%) (Auto) % (1.0-10.0) Eosinophils (%) (Auto) % (0.0-3.0) Basophils (%) (Auto) % (0.0-2.0) Differential Total Cells Counted 100 Neutrophils % (Manual) 86 % (45-75) H Lymphocytes % (Manual) 3 % (20-45) L Monocytes % (Manual) 7 % (1-10) Eosinophils % (Manual) 4 % (0-3) H Basophils % (Manual) 0 % (0-2) Band Neutrophils 0 % (0-8) Platelet Estimate Adequate Platelet Morphology Normal Anisocytosis 1+ Sodium Level 150 MMOL/L (136-145) H Potassium Level 3.4 MMOL/L (3.5-5.1) L Chloride Level 116 MMOL/L (98-107) H Carbon Dioxide Level 22 MMOL/L (21-32) Anion Gap 12 mmol/L (5-15) Blood Urea Nitrogen 96 mg/dL (7-18) H Creatinine 3.2 MG/DL (0.55-1.30) H Estimat Glomerular Filtration Rate mL/min (>60) Glucose Level 175 MG/DL (74-106) H Uric Acid 8.3 MG/DL (2.6-7.2) H Calcium Level 9.1 MG/DL (8.5-10.1) Phosphorus Level 4.1 MG/DL (2.5-4.9) Magnesium Level 1.8 MG/DL (1.8-2.4) Total Bilirubin 0.6 MG/DL (0.2-1.0) Aspartate Amino Transf (AST/SGOT) 19 U/L (15-37) Alanine Aminotransferase (ALT/SGPT) 20 U/L (12-78) Alkaline Phosphatase 277 U/L (46-116) H Pro-B-Type Natriuretic Peptide 4596 pg/mL (0-125) H Total Protein 7.6 G/DL (6.4-8.2) Albumin 1.5 G/DL (3.4-5.0) L Globulin 6.1 g/dL Albumin/Globulin Ratio 0.2 (1.0-2.7) L Intake and Output 01/19/18 01/20/18 19:00 07:00 Intake Total 530 ml 560 ml Output Total 600 ml Balance -70 ml 560 ml Free Water 200 ml 200 ml Tube Feeding 330 ml 360 ml Output Urine Total 600 ml # Bowel Movements 1 Objective General Appearance: WD/WN, no apparent distress, alert EENT: PERRL/EOMI, normal ENT inspection Neck: non-tender, normal alignment, supple Cardiovascular: normal peripheral pulses, normal rate, regular rhythm, no gallop/murmur, no JVD Respiratory/Chest: chest wall non-tender, lungs clear, normal breath sounds, no respiratory distress, no accessory muscle use Abdomen: normal bowel sounds, non tender, soft, no organomegaly, no mass Skin: normal pigmentation, warm/dry Assessment/Plan Problem List: (1) Diabetes mellitus (2) ESRD (end stage renal disease) on dialysis (3) CAD (coronary artery disease) (4) CHF (congestive heart failure) (5) Sepsis Assessment & Plan: E.Coli. See ID note. Continue ertapenem per ID (6) Fever (7) Pneumonia (8) Feeding by G-tube (9) HTN (hypertension) (10) History of CVA (cerebrovascular accident) (11) Anemia in chronic kidney disease, on chronic dialysis Assessment & Plan: S/P transfusion 2 units PRBC (12) Hypernatremia Assessment & Plan: See nephrology note. (13) Hypokalemia SHELIA BAUMANN Jan 20, 2018 11:42
[2018-01-20] MEDS ORDERED: 1/2NS w/KCl 20mEq 1000ml 1,000 ML IV SCH (11:45)
--- NOTE | 2018-01-20 12:21 | Infectious Diseases Prog Note ---
Assessment/Plan Assessment/Plan ASSESSMENT: The patient is a 72-year-old male with: Sepsis, SP Leukocytosis, improved Fever., SP bacteremia. EColi source probably UTI. (UCX was cancelled) Elevated alkaline phosphatase, Ultrasound of the liver : no billary disease obstruction. Multiple decubitus, however, not grossly infected Sacral Wnd : poloy microbial ( Colonziation at this time ) Left lung pneumonia ? 01/16 : CXR: Question mild pulmonary vascular congestion, possibly exaggerated due to low lung volumes. Hypertension. End-stage renal disease, on hemodialysis. Status post PEG. Gout. Anemia. Multiple decubitus in the sacral area and lower extremists PLAN: continue the patient on Levaquin d# 3 / 7 01/18 SP ertapenem, amikacin, and vancomycin day # 4 Monitor CBC and BMP. Monitor chest x-ray. Subjective Allergies: Coded Allergies: No Known Allergies (Unverified , 01/14/18) Subjective comfortable Objective Vital Signs Last 24 Hour Vital Signs Date Time Temp Pulse Resp B/P (MAP) Pulse Ox O2 Delivery O2 Flow Rate FiO2 01/20/18 12:00 98.1 100 16 141/81 100 Room Air 98.1 01/20/18 08:00 98.1 101 16 136/88 98 Room Air 98.1 01/20/18 07:30 83 18 Room Air 21 01/20/18 04:00 99 Room Air 01/20/18 04:00 97.7 90 19 125/72 99 97.7 01/20/18 00:00 99 Room Air 01/20/18 00:00 98.8 101 19 143/80 99 98.8 01/19/18 20:06 Room Air 01/19/18 20:06 87 18 Room Air 21 01/19/18 20:06 94 Room Air 21 01/19/18 20:00 97.8 100 19 158/82 97 97.8 01/19/18 20:00 97 Room Air 01/19/18 18:18 108 154/76 01/19/18 16:00 Room Air 01/19/18 16:00 98.0 100 20 155/91 94 98.0 Height (Feet): 5 Height (Inches): 11.00 Weight (Pounds): 162 HEENT: anicteric Respiratory/Chest: no respiratory distress Cardiovascular: regular rhythm Abdomen: no organomegaly Laboratory Tests Test 4/18/18 05:45 White Blood Count 13.3 K/UL (4.8-10.8) H Red Blood Count 3.67 M/UL (4.70-6.10) L Hemoglobin 11.3 G/DL (14.2-18.0) L Hematocrit 34.7 % (42.0-52.0) L Mean Corpuscular Volume 95 FL (80-99) Mean Corpuscular Hemoglobin 30.9 PG (27.0-31.0) Mean Corpuscular Hemoglobin Concent 32.6 G/DL (32.0-36.0) Red Cell Distribution Width 15.0 % (11.6-14.8) H Platelet Count 266 K/UL (150-450) Mean Platelet Volume 6.9 FL (6.5-10.1) Neutrophils (%) (Auto) % (45.0-75.0) Lymphocytes (%) (Auto) % (20.0-45.0) Monocytes (%) (Auto) % (1.0-10.0) Eosinophils (%) (Auto) % (0.0-3.0) Basophils (%) (Auto) % (0.0-2.0) Differential Total Cells Counted 100 Neutrophils % (Manual) 86 % (45-75) H Lymphocytes % (Manual) 3 % (20-45) L Monocytes % (Manual) 7 % (1-10) Eosinophils % (Manual) 4 % (0-3) H Basophils % (Manual) 0 % (0-2) Band Neutrophils 0 % (0-8) Platelet Estimate Adequate Platelet Morphology Normal Anisocytosis 1+ Sodium Level 150 MMOL/L (136-145) H Potassium Level 3.4 MMOL/L (3.5-5.1) L Chloride Level 116 MMOL/L (98-107) H Carbon Dioxide Level 22 MMOL/L (21-32) Anion Gap 12 mmol/L (5-15) Blood Urea Nitrogen 96 mg/dL (7-18) H Creatinine 3.2 MG/DL (0.55-1.30) H Estimat Glomerular Filtration Rate mL/min (>60) Glucose Level 175 MG/DL (74-106) H Uric Acid 8.3 MG/DL (2.6-7.2) H Calcium Level 9.1 MG/DL (8.5-10.1) Phosphorus Level 4.1 MG/DL (2.5-4.9) Magnesium Level 1.8 MG/DL (1.8-2.4) Total Bilirubin 0.6 MG/DL (0.2-1.0) Aspartate Amino Transf (AST/SGOT) 19 U/L (15-37) Alanine Aminotransferase (ALT/SGPT) 20 U/L (12-78) Alkaline Phosphatase 277 U/L (46-116) H Pro-B-Type Natriuretic Peptide 4596 pg/mL (0-125) H Total Protein 7.6 G/DL (6.4-8.2) Albumin 1.5 G/DL (3.4-5.0) L Globulin 6.1 g/dL Albumin/Globulin Ratio 0.2 (1.0-2.7) L Current Medications Medications (Trade) Dose Ordered Sig/Elaina Route PRN Reason Start Time Stop Time Status Last Admin Dose Admin Acetaminophen (Tylenol) 650 mg Q4H PRN ORAL fever (temp>100.5F) 01/17/18 16:00 02/13/18 15:59 Chlorhexidine Gluconate (Samantha-Hex 2%) 1 applic DAILY@2000 TOPIC 01/17/18 20:00 02/16/18 19:59 01/19/18 20:40 Dextrose 500 ml @ 500 mls/hr ONCE ONCE IV 01/20/18 11:30 01/20/18 12:29 01/20/18 11:42 Doxazosin Mesylate (Cardura) 1 mg Q6HR GT 01/19/18 18:00 02/16/18 15:44 01/20/18 12:18 Famotidine (Pepcid) 20 mg BID GT 01/17/18 18:00 02/16/18 17:59 01/20/18 08:42 Heparin Sodium (Porcine) (Heparin 5000 units/ml) 5,000 units EVERY 12 HOURS SUBQ 01/17/18 21:00 02/13/18 20:59 01/20/18 08:46 Levofloxacin 150 ml @ 150 mls/hr Q48H IVPB 01/18/18 21:00 01/25/18 23:59 01/18/18 21:41 Morphine Sulfate (Morphine Sulfate) 2 mg Q4H PRN IVP Severe Pain (Pain Scale 7-10) 01/17/18 16:00 01/21/18 15:59 Ondansetron HCl (Zofran) 4 mg Q6H PRN IVP Nausea & Vomiting 01/17/18 16:00 02/13/18 15:59 Polyethylene Glycol (Miralax) 17 gm DAILYPRN PRN ORAL Constipation 01/17/18 16:00 02/13/18 15:59 Potassium Chloride (K-Dur) 20 meq ONCE GT 01/20/18 11:30 01/20/18 12:30 01/20/18 11:40 Dario Rubi MD Jan 20, 2018 12:21
--- NOTE | 2018-01-20 13:37 | Cardiac Electrophysiology PN ---
Assessment/Plan Assessment/Plan 1. Troponin leak 0.036 to 0.099 to 0.011 The patient is nonverbal. Likely due to the patient's renal failure as the patient is on hemodialysis. Echocardiogram EF 65% 2. Hypotension, likely due to septic shock. Resolved with IV fluid. Continue on IV antibiotic. 3. End-stage renal disease, on hemodialysis. 4. Dysphagia, status post PEG placement. 5. CVA. 6. Dementia. 7. Contraction of lower extremities. KURTIS RN Subjective Subjective Comfortable and nonverbal on iv Abx. No events Objective Last 24 Hour Vital Signs Date Time Temp Pulse Resp B/P (MAP) Pulse Ox O2 Delivery O2 Flow Rate FiO2 01/20/18 12:00 98.1 100 16 141/81 100 Room Air 98.1 01/20/18 08:00 98.1 101 16 136/88 98 Room Air 98.1 01/20/18 07:30 83 18 Room Air 21 01/20/18 04:00 99 Room Air 01/20/18 04:00 97.7 90 19 125/72 99 97.7 01/20/18 00:00 99 Room Air 01/20/18 00:00 98.8 101 19 143/80 99 98.8 01/19/18 20:06 Room Air 01/19/18 20:06 87 18 Room Air 21 01/19/18 20:06 94 Room Air 21 01/19/18 20:00 97.8 100 19 158/82 97 97.8 01/19/18 20:00 97 Room Air 01/19/18 18:18 108 154/76 01/19/18 16:00 Room Air 01/19/18 16:00 98.0 100 20 155/91 94 98.0 Intake and Output 01/19/18 01/20/18 19:00 07:00 Intake Total 530 ml 560 ml Output Total 600 ml Balance -70 ml 560 ml Free Water 200 ml 200 ml Tube Feeding 330 ml 360 ml Output Urine Total 600 ml # Bowel Movements 1 Laboratory Tests Test 01/20/18 05:45 White Blood Count 13.3 K/UL (4.8-10.8) H Red Blood Count 3.67 M/UL (4.70-6.10) L Hemoglobin 11.3 G/DL (14.2-18.0) L Hematocrit 34.7 % (42.0-52.0) L Mean Corpuscular Volume 95 FL (80-99) Mean Corpuscular Hemoglobin 30.9 PG (27.0-31.0) Mean Corpuscular Hemoglobin Concent 32.6 G/DL (32.0-36.0) Red Cell Distribution Width 15.0 % (11.6-14.8) H Platelet Count 266 K/UL (150-450) Mean Platelet Volume 6.9 FL (6.5-10.1) Neutrophils (%) (Auto) % (45.0-75.0) Lymphocytes (%) (Auto) % (20.0-45.0) Monocytes (%) (Auto) % (1.0-10.0) Eosinophils (%) (Auto) % (0.0-3.0) Basophils (%) (Auto) % (0.0-2.0) Differential Total Cells Counted 100 Neutrophils % (Manual) 86 % (45-75) H Lymphocytes % (Manual) 3 % (20-45) L Monocytes % (Manual) 7 % (1-10) Eosinophils % (Manual) 4 % (0-3) H Basophils % (Manual) 0 % (0-2) Band Neutrophils 0 % (0-8) Platelet Estimate Adequate Platelet Morphology Normal Anisocytosis 1+ Sodium Level 150 MMOL/L (136-145) H Potassium Level 3.4 MMOL/L (3.5-5.1) L Chloride Level 116 MMOL/L (98-107) H Carbon Dioxide Level 22 MMOL/L (21-32) Anion Gap 12 mmol/L (5-15) Blood Urea Nitrogen 96 mg/dL (7-18) H Creatinine 3.2 MG/DL (0.55-1.30) H Estimat Glomerular Filtration Rate mL/min (>60) Glucose Level 175 MG/DL (74-106) H Uric Acid 8.3 MG/DL (2.6-7.2) H Calcium Level 9.1 MG/DL (8.5-10.1) Phosphorus Level 4.1 MG/DL (2.5-4.9) Magnesium Level 1.8 MG/DL (1.8-2.4) Total Bilirubin 0.6 MG/DL (0.2-1.0) Aspartate Amino Transf (AST/SGOT) 19 U/L (15-37) Alanine Aminotransferase (ALT/SGPT) 20 U/L (12-78) Alkaline Phosphatase 277 U/L (46-116) H Pro-B-Type Natriuretic Peptide 4596 pg/mL (0-125) H Total Protein 7.6 G/DL (6.4-8.2) Albumin 1.5 G/DL (3.4-5.0) L Globulin 6.1 g/dL Albumin/Globulin Ratio 0.2 (1.0-2.7) L Objective HEAD AND NECK: Shows no JVD. Left IJ dialysis catheter. LUNGS: Coarse rhonchi. CARDIOVASCULAR: Tachycardic. S1 and S2 with no gallop. ABDOMEN: Status post G-tube. EXTREMITIES: Contracted. Johnson Burgos MD Jan 20, 2018 13:37
--- NOTE | 2018-01-20 18:17 | General Progress Note ---
Assessment/Plan Status: stable, progressing Assessment/Plan encephalopathy dementia with behavioral disturbance -cont current mes -ativan prn Subjective Date patient seen: Jan 20, 2018 Neurologic/Psychiatric: Reports: anxiety, depressed, emotional problems Allergies: Coded Allergies: No Known Allergies (Unverified , 01/14/18) Objective Last 24 Hour Vital Signs Date Time Temp Pulse Resp B/P (MAP) Pulse Ox O2 Delivery O2 Flow Rate FiO2 01/20/18 17:11 109 133/83 01/20/18 16:00 98.0 103 18 133/83 98 Room Air 98.0 01/20/18 12:00 98.1 100 16 141/81 100 Room Air 98.1 01/20/18 08:00 98.1 101 16 136/88 98 Room Air 98.1 01/20/18 07:30 83 18 Room Air 21 01/20/18 04:00 99 Room Air 01/20/18 04:00 97.7 90 19 125/72 99 97.7 01/20/18 00:00 99 Room Air 01/20/18 00:00 98.8 101 19 143/80 99 98.8 01/19/18 20:06 Room Air 01/19/18 20:06 87 18 Room Air 21 01/19/18 20:06 94 Room Air 21 01/19/18 20:00 97.8 100 19 158/82 97 97.8 01/19/18 20:00 97 Room Air 01/19/18 18:18 108 154/76 Intake and Output 01/19/18 01/20/18 18:59 06:59 Intake Total 530 ml 560 ml Output Total 600 ml Balance -70 ml 560 ml Free Water 200 ml 200 ml Tube Feeding 330 ml 360 ml Output Urine Total 600 ml # Bowel Movements 1 Laboratory Tests 01/20/18 05:45: White Blood Count 13.3H, Red Blood Count 3.67L, Hemoglobin 11.3L, Hematocrit 34.7L, Mean Corpuscular Volume 95, Mean Corpuscular Hemoglobin 30.9, Mean Corpuscular Hemoglobin Concent 32.6, Red Cell Distribution Width 15.0H, Platelet Count 266, Mean Platelet Volume 6.9, Neutrophils (%) (Auto) , Lymphocytes (%) (Auto) , Monocytes (%) (Auto) , Eosinophils (%) (Auto) , Basophils (%) (Auto) , Differential Total Cells Counted 100, Neutrophils % ( Manual) 86H, Lymphocytes % (Manual) 3L, Monocytes % (Manual) 7, Eosinophils % ( Manual) 4H, Basophils % (Manual) 0, Band Neutrophils 0, Platelet Estimate Adequate, Platelet Morphology Normal, Anisocytosis 1+, Sodium Level 150H, Potassium Level 3.4L, Chloride Level 116H, Carbon Dioxide Level 22, Anion Gap 12 , Blood Urea Nitrogen 96H, Creatinine 3.2H, Estimat Glomerular Filtration Rate , Glucose Level 175H, Uric Acid 8.3H, Calcium Level 9.1, Phosphorus Level 4.1, Magnesium Level 1.8, Total Bilirubin 0.6, Aspartate Amino Transf (AST/SGOT) 19, Alanine Aminotransferase (ALT/SGPT) 20, Alkaline Phosphatase 277H, Pro-B-Type Natriuretic Peptide 4596H, Total Protein 7.6, Albumin 1.5L, Globulin 6.1, Albumin/Globulin Ratio 0.2L Height (Feet): 5 Height (Inches): 11.00 Weight (Pounds): 162 General Appearance: WD/WN, no apparent distress, alert, confused, agitated Lakhwinder Faust M.D. Jan 20, 2018 18:17
--- NOTE | 2018-01-20 19:32 | Pulmonology Progress Note ---
Assessment/Plan Problems: (1) Bacteremia (2) Septic shock (3) Pneumonia (4) ESRF (end stage renal failure) (5) Anemia in chronic kidney disease, on chronic dialysis (6) Feeding by G-tube (7) Hemiplegia (8) HTN (hypertension) (9) History of CVA (cerebrovascular accident) Assessment/Plan Blood culture positive for + EColi, pansensitive wbc decreasing, down to 13 ID note appreciated, on Levofloxacin IV HD by nephrology tolerating feeding dvt prophylaxis symptomatic treatment med/surg dc planning soon Subjective ROS Limited/Unobtainable: No Constitutional: Reports: no symptoms HEENT: Repors: no symptoms Allergies: Coded Allergies: No Known Allergies (Unverified , 01/14/18) Objective Last 24 Hour Vital Signs Date Time Temp Pulse Resp B/P (MAP) Pulse Ox O2 Delivery O2 Flow Rate FiO2 01/20/18 17:11 109 133/83 01/20/18 16:00 98.0 103 18 133/83 98 Room Air 98.0 01/20/18 12:00 98.1 100 16 141/81 100 Room Air 98.1 01/20/18 08:00 98.1 101 16 136/88 98 Room Air 98.1 01/20/18 07:30 83 18 Room Air 21 01/20/18 04:00 99 Room Air 01/20/18 04:00 97.7 90 19 125/72 99 97.7 01/20/18 00:00 99 Room Air 01/20/18 00:00 98.8 101 19 143/80 99 98.8 01/19/18 20:06 Room Air 01/19/18 20:06 87 18 Room Air 21 01/19/18 20:06 94 Room Air 21 01/19/18 20:00 97.8 100 19 158/82 97 97.8 01/19/18 20:00 97 Room Air Intake and Output 01/19/18 01/20/18 19:00 07:00 Intake Total 530 ml 560 ml Output Total 600 ml Balance -70 ml 560 ml Free Water 200 ml 200 ml Tube Feeding 330 ml 360 ml Output Urine Total 600 ml # Bowel Movements 1 Objective General Appearance: cachectic Lines, tubes and drains: peripheral, HD access HEENT: normocephalic, atraumatic Neck: non-tender, supple Lungs: coarse rhonchi Breasts: no masses Cardiovascular/Chest: normal rate Abdomen: normal bowel sounds, non tender Extremities: moderate edema Skin Exam: other Laboratory Tests 01/20/18 05:45: White Blood Count 13.3H, Red Blood Count 3.67L, Hemoglobin 11.3L, Hematocrit 34.7L, Mean Corpuscular Volume 95, Mean Corpuscular Hemoglobin 30.9, Mean Corpuscular Hemoglobin Concent 32.6, Red Cell Distribution Width 15.0H, Platelet Count 266, Mean Platelet Volume 6.9, Neutrophils (%) (Auto) , Lymphocytes (%) (Auto) , Monocytes (%) (Auto) , Eosinophils (%) (Auto) , Basophils (%) (Auto) , Differential Total Cells Counted 100, Neutrophils % ( Manual) 86H, Lymphocytes % (Manual) 3L, Monocytes % (Manual) 7, Eosinophils % ( Manual) 4H, Basophils % (Manual) 0, Band Neutrophils 0, Platelet Estimate Adequate, Platelet Morphology Normal, Anisocytosis 1+, Sodium Level 150H, Potassium Level 3.4L, Chloride Level 116H, Carbon Dioxide Level 22, Anion Gap 12 , Blood Urea Nitrogen 96H, Creatinine 3.2H, Estimat Glomerular Filtration Rate , Glucose Level 175H, Uric Acid 8.3H, Calcium Level 9.1, Phosphorus Level 4.1, Magnesium Level 1.8, Total Bilirubin 0.6, Aspartate Amino Transf (AST/SGOT) 19, Alanine Aminotransferase (ALT/SGPT) 20, Alkaline Phosphatase 277H, Pro-B-Type Natriuretic Peptide 4596H, Total Protein 7.6, Albumin 1.5L, Globulin 6.1, Albumin/Globulin Ratio 0.2L Current Medications Medications (Trade) Dose Ordered Sig/Elaina Route PRN Reason Start Time Stop Time Status Last Admin Dose Admin Acetaminophen (Tylenol) 650 mg Q4H PRN ORAL fever (temp>100.5F) 01/17/18 16:00 02/13/18 15:59 Chlorhexidine Gluconate (Samantha-Hex 2%) 1 applic DAILY@2000 TOPIC 01/17/18 20:00 02/16/18 19:59 01/19/18 20:40 Doxazosin Mesylate (Cardura) 1 mg Q6HR GT 01/19/18 18:00 02/16/18 15:44 01/20/18 17:11 Famotidine (Pepcid) 20 mg BID GT 01/17/18 18:00 02/16/18 17:59 01/20/18 17:11 Heparin Sodium (Porcine) (Heparin 5000 units/ml) 5,000 units EVERY 12 HOURS SUBQ 01/17/18 21:00 02/13/18 20:59 01/20/18 08:46 Levofloxacin 150 ml @ 150 mls/hr Q48H IVPB 01/18/18 21:00 01/25/18 23:59 01/18/18 21:41 Morphine Sulfate (Morphine Sulfate) 2 mg Q4H PRN IVP Severe Pain (Pain Scale 7-10) 01/17/18 16:00 01/21/18 15:59 Ondansetron HCl (Zofran) 4 mg Q6H PRN IVP Nausea & Vomiting 01/17/18 16:00 02/13/18 15:59 Polyethylene Glycol (Miralax) 17 gm DAILYPRN PRN ORAL Constipation 01/17/18 16:00 02/13/18 15:59 Bryson Reilly MD Jan 20, 2018 19:32
[2018-01-20] MEDS: Dyna-Hex 2% Top Sol 2oz TOPIC SCH (21:56)
[2018-01-21] VITALS (8 sets, daily range): BP systolic 122–145; BP diastolic 79–89
[2018-01-21] MEDS: Doxazosin 1mg Tab GT SCH ×5 (00:19→23:55)
[2018-01-21] MEDS: Heparin 5000 units/ml inj SUBQ SCH ×2 (08:14→20:55)
--- NOTE | 2018-01-21 10:17 | Infectious Diseases Prog Note ---
Assessment/Plan Assessment/Plan ASSESSMENT: The patient is a 72-year-old male with: Sepsis, SP Leukocytosis, improved Fever., SP bacteremia. EColi source probably UTI. (UCX was cancelled) Elevated alkaline phosphatase, Ultrasound of the liver : no billary disease obstruction. Multiple decubitus, however, not grossly infected Sacral Wnd : poloy microbial ( Colonziation at this time ) Left lung pneumonia ? 01/16 : CXR: Question mild pulmonary vascular congestion, possibly exaggerated due to low lung volumes. Hypertension. End-stage renal disease, on hemodialysis. Status post PEG. Gout. Anemia. Multiple decubitus in the sacral area and lower extremists PLAN: continue the patient on Levaquin d# 4 / 01/18 SP ertapenem, amikacin, and vancomycin day # 4 Monitor CBC and BMP. Monitor chest x-ray. Subjective Allergies: Coded Allergies: No Known Allergies (Unverified , 01/14/18) Subjective comfortable Objective Vital Signs Last 24 Hour Vital Signs Date Time Temp Pulse Resp B/P (MAP) Pulse Ox O2 Delivery O2 Flow Rate FiO2 01/21/18 08:00 97.2 106 18 141/88 97 Room Air 97.2 01/21/18 04:00 98.1 111 20 139/89 96 98.1 01/21/18 00:00 98.3 114 20 122/79 99 98.3 01/20/18 20:00 98.4 106 20 135/80 100 98.4 01/20/18 17:11 109 133/83 01/20/18 16:00 98.0 103 18 133/83 98 Room Air 98.0 01/20/18 12:00 98.1 100 16 141/81 100 Room Air 98.1 Height (Feet): 5 Height (Inches): 11.00 Weight (Pounds): 165 HEENT: anicteric Respiratory/Chest: no respiratory distress Current Medications Medications (Trade) Dose Ordered Sig/Elaina Route PRN Reason Start Time Stop Time Status Last Admin Dose Admin Acetaminophen (Tylenol) 650 mg Q4H PRN ORAL fever (temp>100.5F) 01/17/18 16:00 02/13/18 15:59 Chlorhexidine Gluconate (Samantha-Hex 2%) 1 applic DAILY@1999 TOPIC 01/17/18 20:00 02/16/18 19:59 01/20/18 21:56 Doxazosin Mesylate (Cardura) 1 mg Q6HR GT 01/19/18 18:00 02/16/18 15:44 01/21/18 06:07 Famotidine (Pepcid) 20 mg BID GT 01/17/18 18:00 02/16/18 17:59 01/21/18 08:13 Heparin Sodium (Porcine) (Heparin 5000 units/ml) 5,000 units EVERY 12 HOURS SUBQ 01/17/18 21:00 02/13/18 20:59 01/21/18 08:14 Levofloxacin 150 ml @ 150 mls/hr Q48H IVPB 01/18/18 21:00 01/25/18 23:59 01/20/18 21:56 Morphine Sulfate (Morphine Sulfate) 2 mg Q4H PRN IVP Severe Pain (Pain Scale 7-10) 01/17/18 16:00 01/21/18 15:59 Ondansetron HCl (Zofran) 4 mg Q6H PRN IVP Nausea & Vomiting 01/17/18 16:00 02/13/18 15:59 Polyethylene Glycol (Miralax) 17 gm DAILYPRN PRN ORAL Constipation 01/17/18 16:00 02/13/18 15:59 Dario Rubi MD Jan 21, 2018 10:17
[2018-01-21 11:29] LABS: BASOPHILS % (AUTO) 0.3 % (0.0-2.0); EOSINOPHILS % (AUTO) 2.6 % (0.0-3.0); HEMOGLOBIN 10.8 G/DL (14.2-18.0); LYMPHOCYTES % (AUTO) 11.6 % (20.0-45.0); MEAN CORPUSCULAR VOLUME 96 FL (80-99); MONOCYTES % (AUTO) 7.7 % (1.0-10.0); NEUTROPHILS % (AUTO) 77.8 % (45.0-75.0); PLATELET COUNT 256 K/UL (150-450); RED BLOOD COUNT 3.55 M/UL (4.70-6.10); RED CELL DISTRIBUTION WIDTH 15.3 % (11.6-14.8); WHITE BLOOD COUNT 11.1 K/UL (4.8-10.8)
[2018-01-21 11:42] LABS: ANION GAP 12 mmol/L (5-15); BLOOD UREA NITROGEN 99 mg/dL (7-18); CARBON DIOXIDE 21 MMOL/L (21-32); CHLORIDE 116 MMOL/L (98-107); CREATININE 3.2 MG/DL (0.55-1.30); POTASSIUM 3.8 MMOL/L (3.5-5.1); SODIUM 149 MMOL/L (136-145)
--- NOTE | 2018-01-21 13:21 | General Progress Note ---
Assessment/Plan Status: stable Assessment/Plan encephalopathy dementia with behavioral disturbance -cont current meds -Ativan prn Subjective Date patient seen: Jan 21, 2018 Neurologic/Psychiatric: Reports: depressed, emotional problems Allergies: Coded Allergies: No Known Allergies (Unverified , 01/14/18) Objective Last 24 Hour Vital Signs Date Time Temp Pulse Resp B/P (MAP) Pulse Ox O2 Delivery O2 Flow Rate FiO2 01/21/18 11:58 97.4 107 18 133/84 100 Room Air 97.4 01/21/18 08:21 80 18 Room Air 21 01/21/18 08:00 97.2 106 18 141/88 97 Room Air 97.2 01/21/18 04:00 98.1 111 20 139/89 96 98.1 01/21/18 00:00 98.3 114 20 122/79 99 98.3 01/20/18 20:00 98.4 106 20 135/80 100 98.4 01/20/18 17:11 109 133/83 01/20/18 16:00 98.0 103 18 133/83 98 Room Air 98.0 Intake and Output 01/20/18 01/21/18 19:00 07:00 Intake Total 530 ml 680 ml Balance 530 ml 680 ml Free Water 200 ml 200 ml IV Total 150 ml Tube Feeding 330 ml 330 ml # Voids 4 2 # Bowel Movements 1 Laboratory Tests 01/21/18 11:20: White Blood Count 11.1H, Red Blood Count 3.55L, Hemoglobin 10.8L, Hematocrit 34.0L, Mean Corpuscular Volume 96, Mean Corpuscular Hemoglobin 30.4, Mean Corpuscular Hemoglobin Concent 31.8L, Red Cell Distribution Width 15.3H, Platelet Count 256, Mean Platelet Volume 6.5, Neutrophils (%) (Auto) 77.8H, Lymphocytes (%) (Auto) 11.6L, Monocytes (%) (Auto) 7.7, Eosinophils (%) (Auto) 2.6, Basophils (%) (Auto) 0.3, Sodium Level 149H, Potassium Level 3.8, Chloride Level 116H, Carbon Dioxide Level 21, Anion Gap 12, Blood Urea Nitrogen 99H, Creatinine 3.2H, Estimat Glomerular Filtration Rate , Glucose Level 127H, Calcium Level 9.0 Height (Feet): 5 Height (Inches): 11.00 Weight (Pounds): 165 General Appearance: no apparent distress, lethargic, confused Neurologic: depressed affect Lakhwinder Faust M.D. Jan 21, 2018 13:21
--- NOTE | 2018-01-21 14:43 | Nephrology Progress Note ---
Assessment/Plan Problem List: (1) ESRF (end stage renal failure) (2) Septic shock (3) Anemia in chronic kidney disease, on chronic dialysis Assessment ESRD by history Septic Shock resolved low BP Left permacath Dementia Anemia HTN Previous Stroke Plan Cr lower transfused 2 units Antibiotics Cardura for BP and BPH HD , not needed yet per orders H2O via GT D5W bollous Subjective ROS Limited/Unobtainable: No Constitutional: Reports: malaise Objective Objective Last 24 Hour Vital Signs Date Time Temp Pulse Resp B/P (MAP) Pulse Ox O2 Delivery O2 Flow Rate FiO2 01/21/18 11:58 97.4 107 18 133/84 100 Room Air 97.4 01/21/18 08:21 80 18 Room Air 21 01/21/18 08:00 97.2 106 18 141/88 97 Room Air 97.2 01/21/18 04:00 98.1 111 20 139/89 96 98.1 01/21/18 00:00 98.3 114 20 122/79 99 98.3 01/20/18 20:00 98.4 106 20 135/80 100 98.4 01/20/18 17:11 109 133/83 01/20/18 16:00 98.0 103 18 133/83 98 Room Air 98.0 Intake and Output 01/20/18 01/21/18 19:00 07:00 Intake Total 530 ml 680 ml Balance 530 ml 680 ml Free Water 200 ml 200 ml IV Total 150 ml Tube Feeding 330 ml 330 ml # Voids 4 2 # Bowel Movements 1 Laboratory Tests 01/21/18 11:20: White Blood Count 11.1H, Red Blood Count 3.55L, Hemoglobin 10.8L, Hematocrit 34.0L, Mean Corpuscular Volume 96, Mean Corpuscular Hemoglobin 30.4, Mean Corpuscular Hemoglobin Concent 31.8L, Red Cell Distribution Width 15.3H, Platelet Count 256, Mean Platelet Volume 6.5, Neutrophils (%) (Auto) 77.8H, Lymphocytes (%) (Auto) 11.6L, Monocytes (%) (Auto) 7.7, Eosinophils (%) (Auto) 2.6, Basophils (%) (Auto) 0.3, Sodium Level 149H, Potassium Level 3.8, Chloride Level 116H, Carbon Dioxide Level 21, Anion Gap 12, Blood Urea Nitrogen 99H, Creatinine 3.2H, Estimat Glomerular Filtration Rate , Glucose Level 127H, Calcium Level 9.0 Height (Feet): 5 Height (Inches): 11.00 Weight (Pounds): 165 General Appearance: no apparent distress Objective PE not changed GIOVANNI BROUSSARD Jan 21, 2018 14:43
--- NOTE | 2018-01-21 15:13 | Cardiac Electrophysiology PN ---
Assessment/Plan Assessment/Plan 1. Troponin leak 0.036 , 0.099 and 0.011 The patient is nonverbal. Likely due renal failure. Echocardiogram EF 65% 2. Hypotension, likely due to septic shock. Resolved with IV fluid. Continue on IV antibiotic. 3. End-stage renal disease, on hemodialysis. 4. Dysphagia, status post PEG placement. 5. CVA. 6. Dementia. 7. Contraction of lower extremities. DW RN Subjective Subjective Comfortable and nonverbal . No events. RN at bedside Objective Last 24 Hour Vital Signs Date Time Temp Pulse Resp B/P (MAP) Pulse Ox O2 Delivery O2 Flow Rate FiO2 01/21/18 11:58 97.4 107 18 133/84 100 Room Air 97.4 01/21/18 08:21 80 18 Room Air 21 01/21/18 08:00 97.2 106 18 141/88 97 Room Air 97.2 01/21/18 04:00 98.1 111 20 139/89 96 98.1 01/21/18 00:00 98.3 114 20 122/79 99 98.3 01/20/18 20:00 98.4 106 20 135/80 100 98.4 01/20/18 17:11 109 133/83 01/20/18 16:00 98.0 103 18 133/83 98 Room Air 98.0 Intake and Output 01/20/18 01/21/18 19:00 07:00 Intake Total 530 ml 680 ml Balance 530 ml 680 ml Free Water 200 ml 200 ml IV Total 150 ml Tube Feeding 330 ml 330 ml # Voids 4 2 # Bowel Movements 1 Laboratory Tests Test 01/21/18 11:20 White Blood Count 11.1 K/UL (4.8-10.8) H Red Blood Count 3.55 M/UL (4.70-6.10) L Hemoglobin 10.8 G/DL (14.2-18.0) L Hematocrit 34.0 % (42.0-52.0) L Mean Corpuscular Volume 96 FL (80-99) Mean Corpuscular Hemoglobin 30.4 PG (27.0-31.0) Mean Corpuscular Hemoglobin Concent 31.8 G/DL (32.0-36.0) L Red Cell Distribution Width 15.3 % (11.6-14.8) H Platelet Count 256 K/UL (150-450) Mean Platelet Volume 6.5 FL (6.5-10.1) Neutrophils (%) (Auto) 77.8 % (45.0-75.0) H Lymphocytes (%) (Auto) 11.6 % (20.0-45.0) L Monocytes (%) (Auto) 7.7 % (1.0-10.0) Eosinophils (%) (Auto) 2.6 % (0.0-3.0) Basophils (%) (Auto) 0.3 % (0.0-2.0) Sodium Level 149 MMOL/L (136-145) H Potassium Level 3.8 MMOL/L (3.5-5.1) Chloride Level 116 MMOL/L (98-107) H Carbon Dioxide Level 21 MMOL/L (21-32) Anion Gap 12 mmol/L (5-15) Blood Urea Nitrogen 99 mg/dL (7-18) H Creatinine 3.2 MG/DL (0.55-1.30) H Estimat Glomerular Filtration Rate mL/min (>60) Glucose Level 127 MG/DL (74-106) H Calcium Level 9.0 MG/DL (8.5-10.1) Objective HEAD AND NECK: Shows no JVD. Left IJ dialysis catheter. LUNGS: Coarse rhonchi. CARDIOVASCULAR: Tachycardic. S1 and S2 with no gallop. ABDOMEN: Status post G-tube. EXTREMITIES: Contracted. Johnson Burgos MD Jan 21, 2018 15:13
--- NOTE | 2018-01-21 16:12 | Pulmonology Progress Note ---
Assessment/Plan Problems: (1) Bacteremia (2) Septic shock (3) Pneumonia (4) ESRF (end stage renal failure) (5) Anemia in chronic kidney disease, on chronic dialysis (6) Feeding by G-tube (7) Hemiplegia (8) HTN (hypertension) (9) History of CVA (cerebrovascular accident) Assessment/Plan Blood culture positive for + EColi, pansensitive wbc decreasing, down to 13 ID note appreciated, on Levofloxacin IV HD by nephrology tolerating feeding dvt prophylaxis symptomatic treatment med/surg dc planning soon with oral levofloxacin 3 more days Subjective ROS Limited/Unobtainable: No Constitutional: Reports: no symptoms HEENT: Repors: no symptoms Respiratory: Reports: no symptoms Allergies: Coded Allergies: No Known Allergies (Unverified , 01/14/18) Objective Last 24 Hour Vital Signs Date Time Temp Pulse Resp B/P (MAP) Pulse Ox O2 Delivery O2 Flow Rate FiO2 01/21/18 16:00 98.7 112 20 145/87 97 Room Air 98.7 01/21/18 11:58 97.4 107 18 133/84 100 Room Air 97.4 01/21/18 08:21 80 18 Room Air 21 01/21/18 08:00 97.2 106 18 141/88 97 Room Air 97.2 01/21/18 04:00 98.1 111 20 139/89 96 98.1 01/21/18 00:00 98.3 114 20 122/79 99 98.3 01/20/18 20:00 98.4 106 20 135/80 100 98.4 01/20/18 17:11 109 133/83 Intake and Output 01/20/18 01/21/18 19:00 07:00 Intake Total 530 ml 680 ml Balance 530 ml 680 ml Free Water 200 ml 200 ml IV Total 150 ml Tube Feeding 330 ml 330 ml # Voids 4 2 # Bowel Movements 1 Objective General Appearance: cachectic Lines, tubes and drains: peripheral, HD access HEENT: normocephalic, atraumatic Neck: non-tender, supple Lungs: coarse rhonchi Breasts: no masses Cardiovascular/Chest: normal rate Abdomen: normal bowel sounds, non tender Extremities: moderate edema Skin Exam: other Laboratory Tests 01/21/18 11:20: White Blood Count 11.1H, Red Blood Count 3.55L, Hemoglobin 10.8L, Hematocrit 34.0L, Mean Corpuscular Volume 96, Mean Corpuscular Hemoglobin 30.4, Mean Corpuscular Hemoglobin Concent 31.8L, Red Cell Distribution Width 15.3H, Platelet Count 256, Mean Platelet Volume 6.5, Neutrophils (%) (Auto) 77.8H, Lymphocytes (%) (Auto) 11.6L, Monocytes (%) (Auto) 7.7, Eosinophils (%) (Auto) 2.6, Basophils (%) (Auto) 0.3, Sodium Level 149H, Potassium Level 3.8, Chloride Level 116H, Carbon Dioxide Level 21, Anion Gap 12, Blood Urea Nitrogen 99H, Creatinine 3.2H, Estimat Glomerular Filtration Rate , Glucose Level 127H, Calcium Level 9.0 Current Medications Medications (Trade) Dose Ordered Sig/Elaina Route PRN Reason Start Time Stop Time Status Last Admin Dose Admin Acetaminophen (Tylenol) 650 mg Q4H PRN ORAL fever (temp>100.5F) 01/17/18 16:00 02/13/18 15:59 Chlorhexidine Gluconate (Samantha-Hex 2%) 1 applic DAILY@2000 TOPIC 01/17/18 20:00 02/16/18 19:59 01/20/18 21:56 Dextrose 500 ml @ 500 mls/hr ONCE ONCE IV 01/21/18 16:00 01/21/18 16:59 Doxazosin Mesylate (Cardura) 1 mg Q6HR GT 01/19/18 18:00 02/16/18 15:44 01/21/18 12:09 Famotidine (Pepcid) 20 mg BID GT 01/17/18 18:00 02/16/18 17:59 01/21/18 08:13 Heparin Sodium (Porcine) (Heparin 5000 units/ml) 5,000 units EVERY 12 HOURS SUBQ 01/17/18 21:00 02/13/18 20:59 01/21/18 08:14 Levofloxacin 150 ml @ 150 mls/hr Q48H IVPB 01/18/18 21:00 01/25/18 23:59 01/20/18 21:56 Ondansetron HCl (Zofran) 4 mg Q6H PRN IVP Nausea & Vomiting 01/17/18 16:00 02/13/18 15:59 Polyethylene Glycol (Miralax) 17 gm DAILYPRN PRN ORAL Constipation 01/17/18 16:00 02/13/18 15:59 Bryson Reilly MD Jan 21, 2018 16:12
[2018-01-21] MEDS ORDERED: LEVOFLOXAC IVPB (16:13)
--- NOTE | 2018-01-21 18:12 | Internal Med Progress Note ---
Subjective Date of Service: Jan 21, 2018 Physician Name Shelia Baumann Attending Physician Steve Gonzalez MD Current Medications Medications (Trade) Dose Ordered Sig/Elaina Route PRN Reason Start Time Stop Time Status Last Admin Dose Admin Acetaminophen (Tylenol) 650 mg Q4H PRN ORAL fever (temp>100.5F) 01/17/18 16:00 02/13/18 15:59 Chlorhexidine Gluconate (Samantha-Hex 2%) 1 applic DAILY@2000 TOPIC 01/17/18 20:00 02/16/18 19:59 01/20/18 21:56 Doxazosin Mesylate (Cardura) 1 mg Q6HR GT 01/19/18 18:00 02/16/18 15:44 01/21/18 17:18 Famotidine (Pepcid) 20 mg BID GT 01/17/18 18:00 02/16/18 17:59 01/21/18 17:18 Heparin Sodium (Porcine) (Heparin 5000 units/ml) 5,000 units EVERY 12 HOURS SUBQ 01/17/18 21:00 02/13/18 20:59 01/21/18 08:14 Levofloxacin 150 ml @ 150 mls/hr Q48H IVPB 01/18/18 21:00 01/25/18 23:59 01/20/18 21:56 Ondansetron HCl (Zofran) 4 mg Q6H PRN IVP Nausea & Vomiting 01/17/18 16:00 02/13/18 15:59 Polyethylene Glycol (Miralax) 17 gm DAILYPRN PRN ORAL Constipation 01/17/18 16:00 02/13/18 15:59 Allergies: Coded Allergies: No Known Allergies (Unverified , 01/14/18) ROS Limited/Unobtainable: Yes Subjective 72 YO M admitted with fever. Now sepsis. Cover for Int Med-Dr Gonzalez. Objective Last Vital Signs Date Time Temp Pulse Resp B/P (MAP) Pulse Ox O2 Delivery O2 Flow Rate FiO2 01/21/18 17:18 108 145/84 01/21/18 16:00 98.7 20 97 Room Air 98.7 01/21/18 08:21 21 01/15/18 17:00 1.0 Laboratory Tests Test 01/21/18 11:20 White Blood Count 11.1 K/UL (4.8-10.8) H Red Blood Count 3.55 M/UL (4.70-6.10) L Hemoglobin 10.8 G/DL (14.2-18.0) L Hematocrit 34.0 % (42.0-52.0) L Mean Corpuscular Volume 96 FL (80-99) Mean Corpuscular Hemoglobin 30.4 PG (27.0-31.0) Mean Corpuscular Hemoglobin Concent 31.8 G/DL (32.0-36.0) L Red Cell Distribution Width 15.3 % (11.6-14.8) H Platelet Count 256 K/UL (150-450) Mean Platelet Volume 6.5 FL (6.5-10.1) Neutrophils (%) (Auto) 77.8 % (45.0-75.0) H Lymphocytes (%) (Auto) 11.6 % (20.0-45.0) L Monocytes (%) (Auto) 7.7 % (1.0-10.0) Eosinophils (%) (Auto) 2.6 % (0.0-3.0) Basophils (%) (Auto) 0.3 % (0.0-2.0) Sodium Level 149 MMOL/L (136-145) H Potassium Level 3.8 MMOL/L (3.5-5.1) Chloride Level 116 MMOL/L (98-107) H Carbon Dioxide Level 21 MMOL/L (21-32) Anion Gap 12 mmol/L (5-15) Blood Urea Nitrogen 99 mg/dL (7-18) H Creatinine 3.2 MG/DL (0.55-1.30) H Estimat Glomerular Filtration Rate mL/min (>60) Glucose Level 127 MG/DL (74-106) H Calcium Level 9.0 MG/DL (8.5-10.1) Intake and Output 01/20/18 01/21/18 19:00 07:00 Intake Total 530 ml 680 ml Balance 530 ml 680 ml Free Water 200 ml 200 ml IV Total 150 ml Tube Feeding 330 ml 330 ml # Voids 4 2 # Bowel Movements 1 Objective General Appearance: WD/WN, no apparent distress, alert EENT: PERRL/EOMI, normal ENT inspection Neck: non-tender, normal alignment, supple Cardiovascular: normal peripheral pulses, normal rate, regular rhythm, no gallop/murmur, no JVD Respiratory/Chest: chest wall non-tender, lungs clear, normal breath sounds, no respiratory distress, no accessory muscle use Abdomen: normal bowel sounds, non tender, soft, no organomegaly, no mass Skin: normal pigmentation, warm/dry Assessment/Plan Problem List: (1) Diabetes mellitus (2) ESRD (end stage renal disease) on dialysis (3) CAD (coronary artery disease) (4) CHF (congestive heart failure) (5) Sepsis Assessment & Plan: E.Coli. See ID note. Continue ertapenem per ID (6) Fever (7) Pneumonia (8) Feeding by G-tube (9) HTN (hypertension) (10) History of CVA (cerebrovascular accident) (11) Anemia in chronic kidney disease, on chronic dialysis Assessment & Plan: S/P transfusion 2 units PRBC (12) Hypernatremia Assessment & Plan: See nephrology note. (13) Hypokalemia Assessment/Plan Discharge planning: senior care fac SHELIA BAUMANN Jan 21, 2018 18:12
[2018-01-21] MEDS: Dyna-Hex 2% Top Sol 2oz TOPIC SCH (20:54)
[2018-01-22] VITALS: BP 130/79
[2018-01-22 04:00] VITALS: BP 131/78
[2018-01-22 04:56] LABS: BASOPHILS % (AUTO) 0.5 % (0.0-2.0); HEMATOCRIT 32.5 % (42.0-52.0); HEMOGLOBIN 10.5 G/DL (14.2-18.0); LYMPHOCYTES % (AUTO) 10.4 % (20.0-45.0); MEAN CORPUSCULAR VOLUME 94 FL (80-99); MONOCYTES % (AUTO) 9.1 % (1.0-10.0); NEUTROPHILS % (AUTO) 77.1 % (45.0-75.0); PLATELET COUNT 258 K/UL (150-450); RED BLOOD COUNT 3.45 M/UL (4.70-6.10); RED CELL DISTRIBUTION WIDTH 15.6 % (11.6-14.8); WHITE BLOOD COUNT 10.5 K/UL (4.8-10.8)
[2018-01-22 05:16] LABS: ANION GAP 9 mmol/L (5-15); BLOOD UREA NITROGEN 99 mg/dL (7-18); CARBON DIOXIDE 23 MMOL/L (21-32); CHLORIDE 113 MMOL/L (98-107); CREATININE 3.4 MG/DL (0.55-1.30); POTASSIUM 3.7 MMOL/L (3.5-5.1); SODIUM 145 MMOL/L (136-145)
[2018-01-22] MEDS: Doxazosin 1mg Tab GT SCH ×2 (05:55→11:50)
--- NOTE | 2018-01-22 07:08 | Nephrology Progress Note ---
Assessment/Plan Problem List: (1) ESRF (end stage renal failure) (2) Septic shock (3) Anemia in chronic kidney disease, on chronic dialysis Assessment ESRD by history Septic Shock resolved low BP Left permacath Dementia Anemia HTN Previous Stroke Plan Cr stable transfused 2 units Antibiotics Cardura for BP and BPH HD , not needed yet per orders H2O via GT D5W bollous ? DC Subjective ROS Limited/Unobtainable: No Constitutional: Reports: malaise Objective Objective Last 24 Hour Vital Signs Date Time Temp Pulse Resp B/P (MAP) Pulse Ox O2 Delivery O2 Flow Rate FiO2 01/22/18 04:00 98.0 100 20 131/78 100 Room Air 98.0 01/22/18 00:00 98.5 101 20 130/79 100 Room Air 98.5 01/21/18 20:02 85 18 Room Air 21 01/21/18 20:00 98.2 106 20 131/83 99 Room Air 98.2 01/21/18 17:18 108 145/84 01/21/18 16:00 98.7 112 20 145/87 97 Room Air 98.7 01/21/18 11:58 97.4 107 18 133/84 100 Room Air 97.4 01/21/18 08:21 80 18 Room Air 21 01/21/18 08:00 97.2 106 18 141/88 97 Room Air 97.2 Intake and Output 01/21/18 01/22/18 19:00 07:00 Intake Total 460 ml 660 ml Balance 460 ml 660 ml Free Water 100 ml 300 ml Tube Feeding 360 ml 360 ml # Voids 3 2 # Bowel Movements 1 1 Laboratory Tests 01/21/18 11:20: White Blood Count 11.1H, Red Blood Count 3.55L, Hemoglobin 10.8L, Hematocrit 34.0L, Mean Corpuscular Volume 96, Mean Corpuscular Hemoglobin 30.4, Mean Corpuscular Hemoglobin Concent 31.8L, Red Cell Distribution Width 15.3H, Platelet Count 256, Mean Platelet Volume 6.5, Neutrophils (%) (Auto) 77.8H, Lymphocytes (%) (Auto) 11.6L, Monocytes (%) (Auto) 7.7, Eosinophils (%) (Auto) 2.6, Basophils (%) (Auto) 0.3, Sodium Level 149H, Potassium Level 3.8, Chloride Level 116H, Carbon Dioxide Level 21, Anion Gap 12, Blood Urea Nitrogen 99H, Creatinine 3.2H, Estimat Glomerular Filtration Rate , Glucose Level 127H, Calcium Level 9.0 01/22/18 04:12: White Blood Count 10.5, Red Blood Count 3.45L, Hemoglobin 10.5L, Hematocrit 32.5L, Mean Corpuscular Volume 94, Mean Corpuscular Hemoglobin 30.4, Mean Corpuscular Hemoglobin Concent 32.3, Red Cell Distribution Width 15.6H, Platelet Count 258, Mean Platelet Volume 6.8, Neutrophils (%) (Auto) 77.1H, Lymphocytes (%) (Auto) 10.4L, Monocytes (%) (Auto) 9.1, Eosinophils (%) (Auto) 3.0, Basophils (%) (Auto) 0.5, Sodium Level 145, Potassium Level 3.7, Chloride Level 113H, Carbon Dioxide Level 23, Anion Gap 9, Blood Urea Nitrogen 99H, Creatinine 3.4H, Estimat Glomerular Filtration Rate , Glucose Level 160H, Calcium Level 9.0 Height (Feet): 5 Height (Inches): 11.00 Weight (Pounds): 167 General Appearance: no apparent distress Cardiovascular: regular rhythm Respiratory/Chest: decreased breath sounds Abdomen: soft Objective PE not changed GIOVANNI BROUSSARD Jan 22, 2018 07:08
[2018-01-22 08:00] VITALS: BP 145/84
[2018-01-22] MEDS: Heparin 5000 units/ml inj SUBQ SCH (08:42)
--- NOTE | 2018-01-22 10:39 | Infectious Diseases Prog Note ---
Assessment/Plan Assessment/Plan ASSESSMENT: The patient is a 72-year-old male with: Sepsis, SP Leukocytosis, SP Fever., SP bacteremia. EColi source probably UTI. (UCX was cancelled) Elevated alkaline phosphatase, Ultrasound of the liver : no billary disease obstruction. Multiple decubitus, however, not grossly infected Sacral Wnd : thaddeusoy microbial ( Colonziation at this time ) Left lung pneumonia ? 01/16 : CXR: Question mild pulmonary vascular congestion, possibly exaggerated due to low lung volumes. Hypertension. End-stage renal disease, on hemodialysis. Status post PEG. Gout. Anemia. Multiple decubitus in the sacral area and lower extremists PLAN: continue the patient on Levaquin d# 5 / ( ok to DC pt w cont of Ab Rx at SNF ) 01/18 SP ertapenem, amikacin, and vancomycin day # 4 Monitor CBC and BMP. Monitor chest x-ray. Subjective Allergies: Coded Allergies: No Known Allergies (Unverified , 01/14/18) Subjective DC to SNF today comfortable Objective Vital Signs Last 24 Hour Vital Signs Date Time Temp Pulse Resp B/P (MAP) Pulse Ox O2 Delivery O2 Flow Rate FiO2 01/22/18 08:49 86 20 01/22/18 08:00 98.4 114 22 145/84 98 Room Air 98.4 01/22/18 04:00 98.0 100 20 131/78 100 Room Air 98.0 01/22/18 00:00 98.5 101 20 130/79 100 Room Air 98.5 01/21/18 20:02 85 18 Room Air 21 01/21/18 20:00 98.2 106 20 131/83 99 Room Air 98.2 01/21/18 17:18 108 145/84 01/21/18 16:00 98.7 112 20 145/87 97 Room Air 98.7 01/21/18 11:58 97.4 107 18 133/84 100 Room Air 97.4 Height (Feet): 5 Height (Inches): 11.00 Weight (Pounds): 167 HEENT: mucous membranes moist Respiratory/Chest: no respiratory distress Cardiovascular: regularly irregular Abdomen: non distended Laboratory Tests Test 01/21/18 11:20 01/22/18 04:12 White Blood Count 11.1 K/UL (4.8-10.8) H 10.5 K/UL (4.8-10.8) Red Blood Count 3.55 M/UL (4.70-6.10) L 3.45 M/UL (4.70-6.10) L Hemoglobin 10.8 G/DL (14.2-18.0) L 10.5 G/DL (14.2-18.0) L Hematocrit 34.0 % (42.0-52.0) L 32.5 % (42.0-52.0) L Mean Corpuscular Volume 96 FL (80-99) 94 FL (80-99) Mean Corpuscular Hemoglobin 30.4 PG (27.0-31.0) 30.4 PG (27.0-31.0) Mean Corpuscular Hemoglobin Concent 31.8 G/DL (32.0-36.0) L 32.3 G/DL (32.0-36.0) Red Cell Distribution Width 15.3 % (11.6-14.8) H 15.6 % (11.6-14.8) H Platelet Count 256 K/UL (150-450) 258 K/UL (150-450) Mean Platelet Volume 6.5 FL (6.5-10.1) 6.8 FL (6.5-10.1) Neutrophils (%) (Auto) 77.8 % (45.0-75.0) H 77.1 % (45.0-75.0) H Lymphocytes (%) (Auto) 11.6 % (20.0-45.0) L 10.4 % (20.0-45.0) L Monocytes (%) (Auto) 7.7 % (1.0-10.0) 9.1 % (1.0-10.0) Eosinophils (%) (Auto) 2.6 % (0.0-3.0) 3.0 % (0.0-3.0) Basophils (%) (Auto) 0.3 % (0.0-2.0) 0.5 % (0.0-2.0) Sodium Level 149 MMOL/L (136-145) H 145 MMOL/L (136-145) Potassium Level 3.8 MMOL/L (3.5-5.1) 3.7 MMOL/L (3.5-5.1) Chloride Level 116 MMOL/L (98-107) H 113 MMOL/L (98-107) H Carbon Dioxide Level 21 MMOL/L (21-32) 23 MMOL/L (21-32) Anion Gap 12 mmol/L (5-15) 9 mmol/L (5-15) Blood Urea Nitrogen 99 mg/dL (7-18) H 99 mg/dL (7-18) H Creatinine 3.2 MG/DL (0.55-1.30) H 3.4 MG/DL (0.55-1.30) H Estimat Glomerular Filtration Rate mL/min (>60) mL/min (>60) Glucose Level 127 MG/DL (74-106) H 160 MG/DL (74-106) H Calcium Level 9.0 MG/DL (8.5-10.1) 9.0 MG/DL (8.5-10.1) Current Medications Medications (Trade) Dose Ordered Sig/Elaina Route PRN Reason Start Time Stop Time Status Last Admin Dose Admin Acetaminophen (Tylenol) 650 mg Q4H PRN ORAL fever (temp>100.5F) 01/17/18 16:00 02/13/18 15:59 Chlorhexidine Gluconate (Samantha-Hex 2%) 1 applic DAILY@2000 TOPIC 01/17/18 20:00 02/16/18 19:59 01/21/18 20:54 Doxazosin Mesylate (Cardura) 1 mg Q6HR GT 01/19/18 18:00 02/16/18 15:44 01/22/18 05:55 Famotidine (Pepcid) 20 mg BID GT 01/17/18 18:00 02/16/18 17:59 01/22/18 08:42 Heparin Sodium (Porcine) (Heparin 5000 units/ml) 5,000 units EVERY 12 HOURS SUBQ 01/17/18 21:00 02/13/18 20:59 01/22/18 08:42 Levofloxacin 150 ml @ 150 mls/hr Q48H IVPB 01/18/18 21:00 01/25/18 23:59 01/20/18 21:56 Ondansetron HCl (Zofran) 4 mg Q6H PRN IVP Nausea & Vomiting 01/17/18 16:00 02/13/18 15:59 Polyethylene Glycol (Miralax) 17 gm DAILYPRN PRN ORAL Constipation 01/17/18 16:00 02/13/18 15:59 Dario Rubi MD Jan 22, 2018 10:39
[2018-01-22] MEDS ORDERED: LEVAQUIN750 MG ORAL ×2 (10:43→10:44)
[2018-01-22 12:00] VITALS: BP 131/79
--- NOTE | 2018-01-22 13:08 | General Progress Note ---
Assessment/Plan Status: stable, progressing Assessment/Plan encephalopathy dementia with behavioral disturbance -cont current meds -Ativan prn Subjective Date patient seen: Jan 22, 2018 Neurologic/Psychiatric: Reports: anxiety, depressed, emotional problems Allergies: Coded Allergies: No Known Allergies (Unverified , 01/14/18) Objective Last 24 Hour Vital Signs Date Time Temp Pulse Resp B/P (MAP) Pulse Ox O2 Delivery O2 Flow Rate FiO2 01/22/18 12:00 98.4 115 21 131/79 100 Room Air 98.4 01/22/18 08:49 86 20 01/22/18 08:00 98.4 114 22 145/84 98 Room Air 98.4 01/22/18 04:00 98.0 100 20 131/78 100 Room Air 98.0 01/22/18 00:00 98.5 101 20 130/79 100 Room Air 98.5 01/21/18 20:02 85 18 Room Air 21 01/21/18 20:00 98.2 106 20 131/83 99 Room Air 98.2 01/21/18 17:18 108 145/84 01/21/18 16:00 98.7 112 20 145/87 97 Room Air 98.7 Intake and Output 01/21/18 01/22/18 19:00 07:00 Intake Total 460 ml 660 ml Balance 460 ml 660 ml Free Water 100 ml 300 ml Tube Feeding 360 ml 360 ml # Voids 3 2 # Bowel Movements 1 1 Laboratory Tests 01/22/18 04:12: White Blood Count 10.5, Red Blood Count 3.45L, Hemoglobin 10.5L, Hematocrit 32.5L, Mean Corpuscular Volume 94, Mean Corpuscular Hemoglobin 30.4, Mean Corpuscular Hemoglobin Concent 32.3, Red Cell Distribution Width 15.6H, Platelet Count 258, Mean Platelet Volume 6.8, Neutrophils (%) (Auto) 77.1H, Lymphocytes (%) (Auto) 10.4L, Monocytes (%) (Auto) 9.1, Eosinophils (%) (Auto) 3.0, Basophils (%) (Auto) 0.5, Sodium Level 145, Potassium Level 3.7, Chloride Level 113H, Carbon Dioxide Level 23, Anion Gap 9, Blood Urea Nitrogen 99H, Creatinine 3.4H, Estimat Glomerular Filtration Rate , Glucose Level 160H, Calcium Level 9.0 Height (Feet): 5 Height (Inches): 11.00 Weight (Pounds): 167 General Appearance: no apparent distress, lethargic, confused Lakhwinder Faust M.D. Jan 22, 2018 13:08
[2018-01-22] MEDS ORDERED: Levofloxacin 500mg tab ORAL ONE (21:00)
--- NOTE | 2018-01-26 14:46 | Discharge Summary ---
Discharge Summary Discharge Summary Discharge Summary DATE OF ADMISSION: 01/14/2018 DATE OF DISCHARGE: 01/22/2018 CONSULTANTS: Dr. Bryson Faust BRIEF HOSPITAL COURSE: Patient is a 72-year-old -[place] male who presented with chief complaint of fever. He is a resident of [facility] a halfway facility. Patient developed a fever on 01/14/2018, he was taken to [facility] emergency room for further evaluation. He has medical history significant for type 2 diabetes, hypertension, coronary artery disease, CVA, GERD, and end- stage renal disease on hemodialysis every Thursday and Thursday. On evaluation at ED , he was febrile temperature 100.1, blood pressure was 75/ 40. Blood work showed leukocytosis WBC was 21.5, hemoglobin 9.6, hematocrit 29.4, platelet 229,000. Sodium was 135, potassium 5.5, BUN 84, creatinine 8.2. He had elevated troponin at 0.099, BNP was 4285. He had a chest x-ray that showed consolidation in the left lower base. He was admitted for evaluation of fevers/sepsis/pneumonia. He was started empirically on vancomycin and amikacin, ertapenem was added. Cardiac evaluation was done. He had rising troponin levels. Elevated troponin possibly secondary to patient's renal failure as patient is on hemodialysis. Echocardiogram done showed EF 60-65% with normal left ventricular size function and wall motion. No aortic insufficiency, no mitral regurgitation. He had low blood pressure, hypotension likely due to septic shock which resolved with IV fluid. He was given inpatient hemodialysis. He had a drop in hemoglobin to 7.8, hematocrit 23.6. He was given 2 units packed RBC blood transfusion. Blood culture showed growth of Escherichia coli. Urine culture was ordered however, was canceled. Antibiotic was changed to Levaquin. He had elevated alkaline phosphatase, ultrasound of the abdomen showed no biliary obstruction, liver grossly unremarkable. He came in with sacral stage IV pressure ulcer, left hip unstageable pressure ulcer and right foot DTI pressure ulcer. He was given wound care. Wound culture with polymicrobial growth, colonized. He had episodes of agitation, he was given Ativan prn. Blood pressure improved. He was continued on G-tube feedings. He was eventually discharged back to halfway. 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 Continue with levofloxacin 750 mg IV every 48 hours for 4 more days I have been assigned to dictate discharge summary on this account, and I was not involved in the patient's management. Dodie Ackerman NP Jan 26, 2018 14:46
== END 2018-01-22 13:30 | DRG 871 ==
LOC: EDBD 12:26 → EMR 12:49 → ICU 13:22 → EDBEDREQ 17:09 → 2E 01-15 21:57 → 4E 01-17 15:00
PROC: 30233N1 Transfusion of Nonautologous Red Blood Cells into Peripheral Vein, Percutaneous Approach (ICD-10-PCS; principal; 2018-01-15)
DX: A41.9 Sepsis, unspecified organism (principal); L89.154 Pressure ulcer of sacral region, stage 4; J18.9 Pneumonia, unspecified organism; R65.21 Severe sepsis with septic shock; N18.6 End stage renal disease; I12.0 Hypertensive chronic kidney disease with stage 5 chronic kidney disease or end stage renal disease; Z43.1 Encounter for attention to gastrostomy; I69.359 Hemiplegia and hemiparesis following cerebral infarction affecting unspecified side; F03.91 Unspecified dementia, unspecified severity, with behavioral disturbance; D63.1 Anemia in chronic kidney disease; Z99.2 Dependence on renal dialysis; L89.220 Pressure ulcer of left hip, unstageable; L89.890 Pressure ulcer of other site, unstageable; I25.2 Old myocardial infarction; R13.10 Dysphagia, unspecified; M24.50 Contracture, unspecified joint; I25.10 Atherosclerotic heart disease of native coronary artery without angina pectoris; M10.9 Gout, unspecified; B96.20 Unspecified Escherichia coli [E. coli] as the cause of diseases classified elsewhere; R45.1 Restlessness and agitation
CPT/HCPCS: 36415; 36600; 71045; 76700; 76770; 80048; 80053; 80061; 80076; 80150; 80202; 82550; 82553; 82607; 82728; 82746; 82803; 82977; 83036; 83540; 83550; 83605; 83735; 83880; 84100; 84443; 84484; 84550; 85007; 85025; 85610; 85730; 86140; 86850; 86900; 86901; 86920; 87040; 87070; 87081; 87181; 87205; 93005; 93306; 94664; 94760; 99291; J2405; J8499